=== PATIENT | male | born 1985 | race Caucasian/White ===

== ENCOUNTER 2018-08-19 08:57 | Emergency (ER) | payer OTHER ==
[2018-08-19 09:06] VITALS: RESP 18
--- NOTE | 2018-08-19 09:35 | ED ---
Skin/Abscess/FB HPI - General Chief complaint: Skin/Abscess/Foreign Body Stated complaint: ABSCESS BOTH FOREARMS Time Seen by Provider: 08/19/18 09:25 Source: patient, RN notes reviewed Mode of arrival: ambulatory Limitations: no limitations - History of Present Illness Initial comments: This a 32-year-old male presents emergency Department chief complaint of bilateral arm abscesses. Patient states it started over the last 1 week. Patient seen at urgent care yesterday was given IM injection of Rocephin and was advised to emergency department. Patient states he didn't but comes today. He states the left arm is much worse than the right. Patient states that he does have a history apparently abuse but has not used recently. Patient states that this initially started from getting fiberglass in his arm and states that he try to cut a piece of plastic. Patient states that he has no paresthesias no weakness to his hands. - Related Data Home Medications Medication Instructions Recorded Confirmed lamoTRIgine [LaMICtal] 200 mg PO DAILY 10/11/14 08/19/18 Citalopram Hydrobromide [CeleXA] 40 mg PO DAILY 08/19/18 08/19/18 Previous Rx's Medication Instructions Recorded Sulfamethox-Tmp 800-160Mg [Bactrim 1 each PO Q12HR #20 tab 08/19/18 Ds] Allergies Allergy/AdvReac Type Severity Reaction Status Date / Time No Known Allergies Allergy Verified 08/19/18 10:13 Review of Systems ROS Statement: Those systems with pertinent positive or pertinent negative responses have been documented in the HPI. ROS Other: All systems not noted in ROS Statement are negative. Past Medical History Additional Past Medical History / Comment(s): IV DRUG ABUSE History of Any Multi-Drug Resistant Organisms: None Reported Past Surgical History: No Surgical Hx Reported Past Psychological History: Bipolar, Depression Smoking Status: Current every day smoker Past Alcohol Use History: None Reported Past Drug Use History: None Reported, Cocaine, Heroin General Exam Limitations: no limitations General appearance: alert, in no apparent distress Head exam: Present: atraumatic, normocephalic, normal inspection Neck exam: Present: normal inspection. Absent: tenderness, meningismus, lymphadenopathy Respiratory exam: Present: normal lung sounds bilaterally. Absent: respiratory distress, wheezes, rales, rhonchi, stridor Cardiovascular Exam: Present: regular rate, normal rhythm, normal heart sounds. Absent: systolic murmur, diastolic murmur, rubs, gallop, clicks Extremities exam: Present: other (Left forearm left antecubital region there is extensive abscesses skin is firm with palpation there is no fluctuant areas is moderate erythema and tenderness with palpation neurovascular intact upper extremities with equal radial pulses equal sensation, there is a 1 cm abscess to the right medial aspect of the antecubital fossa.) Skin exam: Present: warm, dry Course Vital Signs 08/19/18 09:02 Temperature 98.2 F Pulse Rate 61 Respiratory 18 Rate Blood Pressure 108/69 O2 Sat by Pulse 100 Oximetry Medical Decision Making - Medical Decision Making 32-year-old male presented for left arm swelling, rash and right arm abscess. Patient Has Superficial from Phlebitis of His Left Arm. He Does Have a Small Abscess to the Right Arm. Patient Had Lab Work Which Is Controlled Unremarkable. Patient Has NO KNOWN DRUG ALLERGIES and will be discharged on Bactrim. We discussed warm compresses to her arm, anti-inflammatories and needs to have follow-up in one to days for recheck. We discussed return parameters. - Lab Data Result diagrams: 08/19/18 12:02 08/19/18 12:02 Lab Results 08/19/18 08/19/18 Range/Units 12:02 12:02 WBC 8.9 (3.8-10.6) k/uL RBC 4.98 (4.30-5.90) m/uL Hgb 14.0 (13.0-17.5) gm/dL Hct 41.2 (39.0-53.0) % MCV 82.8 (80.0-100.0) fL MCH 28.2 (25.0-35.0) pg MCHC 34.1 (31.0-37.0) g/dL RDW 13.0 (11.5-15.5) % Plt Count 216 (150-450) k/uL Neutrophils % 77 % Lymphocytes % 15 % Monocytes % 5 % Eosinophils % 1 % Basophils % 0 % Neutrophils # 6.9 (1.3-7.7) k/uL Lymphocytes # 1.4 (1.0-4.8) k/uL Monocytes # 0.5 (0-1.0) k/uL Eosinophils # 0.1 (0-0.7) k/uL Basophils # 0.0 (0-0.2) k/uL Sodium 141 (137-145) mmol/L Potassium 3.6 (3.5-5.1) mmol/L Chloride 99 (98-107) mmol/L Carbon Dioxide 32 H (22-30) mmol/L Anion Gap 10 mmol/L BUN 10 (9-20) mg/dL Creatinine 0.62 L (0.66-1.25) mg/dL Est GFR (CKD-EPI)AfAm >90 (>60 ml/min/1.73 sqM) Est GFR (CKD-EPI)NonAf >90 (>60 ml/min/1.73 sqM) Glucose 91 (74-99) mg/dL Calcium 9.0 (8.4-10.2) mg/dL Total Bilirubin 0.5 (0.2-1.3) mg/dL AST 44 (17-59) U/L ALT 56 (21-72) U/L Alkaline Phosphatase 111 (38-126) U/L Total Protein 6.6 (6.3-8.2) g/dL Albumin 3.4 L (3.5-5.0) g/dL Disposition Clinical Impression: Abscess of right arm, Superficial thrombophlebitis of left upper extremity Disposition: HOME SELF-CARE Condition: Stable Instructions: Superficial Thrombophlebitis (ED) Additional Instructions: Please return to the Emergency Department if symptoms worsen or any other concerns. Prescriptions: Sulfamethox-Tmp 800-160Mg [Bactrim Ds] 1 each PO Q12HR #20 tab Is patient prescribed a controlled substance at d/c from ED?: No Referrals: Jessica Mcadams MD [Primary Care Provider] - 1-2 days Time of Disposition: 14:18
--- NOTE | 2018-08-19 10:11 | XR ---
EXAMINATION TYPE: XR forearm LT DATE OF EXAM: 08/19/2018 CLINICAL HISTORY: Pain per order. Abscess and swelling per technologist near elbow. TECHNIQUE: Two views of the left forearm are obtained. COMPARISON: None. FINDINGS: There is no acute fracture or dislocation seen in the left radius or ulna. The left elbow and wrist joints appear within normal limits. There is mild to moderate diffuse subcutaneous edema c entered near distal humerus or elbow ulnar aspect. No suspicious metallic or radiodense foreign body is present. IMPRESSION: There is no acute fracture or dislocation seen in the left radius or ulna.
[2018-08-19 12:40] LABS: Basophils % (A) 0 %; Eosinophils # (A) 0.1 k/uL (0-0.7); Eosinophils % (A) 1 %; HCT 41.2 % (39.0-53.0); Lymphocytes # (A) 1.4 k/uL (1.0-4.8); Lymphocytes % (A) 15 %; MCH 28.2 pg (25.0-35.0); MCHC 34.1 g/dL (31.0-37.0); MCV 82.8 fL (80.0-100.0); Mean Platelet Volume 8.4; Monocytes # (A) 0.5 k/uL (0-1.0); Monocytes % (A) 5 %; Neutrophils # (A) 6.9 k/uL (1.3-7.7); Neutrophils % (A) 77 %; Platelet Count 216 k/uL (150-450); RBC 4.98 m/uL (4.30-5.90); WBC 8.9 k/uL (3.8-10.6)
[2018-08-19 13:44] LABS: ALT 56 U/L (21-72); AST 44 U/L (17-59); Albumin 3.4 g/dL (3.5-5.0); Alkaline Phosphatase 111 U/L (38-126); Anion Gap 10 mmol/L; Blood Urea Nitrogen 10 mg/dL (9-20); Carbon Dioxide 32 mmol/L (22-30); Chloride 99 mmol/L (98-107); Glucose 91 mg/dL (74-99); Potassium 3.6 mmol/L (3.5-5.1); Sodium 141 mmol/L (137-145); Total Bilirubin 0.5 mg/dL (0.2-1.3); Total Protein 6.6 g/dL (6.3-8.2)
--- NOTE | 2018-08-19 14:01 | US ---
EXAMINATION TYPE: US venous doppler duplex UE LT DATE OF EXAM: 08/19/2018 COMPARISON: NONE CLINICAL HISTORY: Pain. Left arm redness, pain, and swelling SIDE PERFORMED: Left Left Arm: Negative for DVT Positive for SVT in the left basilic vein Grayscale, color doppler, spectral doppler imaging performed of the deep veins of the left upper extr emity. There is normal flow, compressibility and vascular waveforms in the deep vessels. IMPRESSION: Acute superficial venous thrombosis in the left basilic vein.
[2018-08-19 14:34] VITALS: BP 102/59; PULSE 70; TEMP 98.8
== END 2018-08-19 14:35 | disposition home or self-care (01) ==
LOC: EC 08:57
DX: I82.612 Acute embolism and thrombosis of superficial veins of left upper extremity (principal); L02.413 Cutaneous abscess of right upper limb; L02.414 Cutaneous abscess of left upper limb; F31.9 Bipolar disorder, unspecified; F17.200 Nicotine dependence, unspecified, uncomplicated; Z79.899 Other long term (current) drug therapy
CPT/HCPCS: 36415; 80053; 85025; 87040; 99284

== ENCOUNTER 2019-02-11 14:53 | Emergency (ER) | payer OTHER ==
[2019-02-11 15:03] VITALS: BP 122/78; PULSE 84; RESP 20; TEMP 97.9
[2019-02-11] MEDS ORDERED: ACET/COD 300 MG/30 MG STARTER PACK 6 TAB BTL PO STA (16:14)
--- NOTE | 2019-02-11 16:16 | ED ---
Abdominal Pain HPI - General Chief Complaint: Abdominal Pain Stated Complaint: Hernia Time Seen by Provider: 02/11/19 15:40 Source: patient, RN notes reviewed Mode of arrival: ambulatory Limitations: no limitations - History of Present Illness Initial Comments: 33-year-old male presents emergency Department for hernia. Patient had a known hernia in the right inguinal region. Patient states that he has been doing heavy lifting as he had to changes.. Patient states he has been miles. He's had increase in symptoms. Patient has fevers chills no difficulty urinating no change in bowel habits. - Related Data Home Medications Medication Instructions Recorded Confirmed lamoTRIgine [LaMICtal] 200 mg PO DAILY 10/11/14 08/19/18 Citalopram Hydrobromide [CeleXA] 40 mg PO DAILY 08/19/18 08/19/18 Previous Rx's Medication Instructions Recorded Sulfamethox-Tmp 800-160Mg [Bactrim 1 each PO Q12HR #20 tab 08/19/18 Ds] Allergies Allergy/AdvReac Type Severity Reaction Status Date / Time No Known Allergies Allergy Verified 02/11/19 15:03 Review of Systems ROS Statement: Those systems with pertinent positive or pertinent negative responses have been documented in the HPI. ROS Other: All systems not noted in ROS Statement are negative. Past Medical History Past Medical History: No Reported History Additional Past Medical History / Comment(s): IV DRUG ABUSE History of Any Multi-Drug Resistant Organisms: None Reported Past Surgical History: No Surgical Hx Reported Past Psychological History: Bipolar, Depression Smoking Status: Current every day smoker Past Alcohol Use History: None Reported Past Drug Use History: None Reported, Cocaine, Heroin General Exam Limitations: no limitations General appearance: alert, in no apparent distress Head exam: Present: atraumatic, normocephalic, normal inspection Eye exam: Present: normal appearance, PERRL, EOMI. Absent: scleral icterus, conjunctival injection, periorbital swelling Respiratory exam: Present: normal lung sounds bilaterally. Absent: respiratory distress, wheezes, rales, rhonchi, stridor Cardiovascular Exam: Present: regular rate, normal rhythm, normal heart sounds. Absent: systolic murmur, diastolic murmur, rubs, gallop, clicks GI/Abdominal exam: Present: soft, normal bowel sounds, hernia (Right inguinal hernia reducible). Absent: distended, tenderness, guarding, rebound, rigid Course Vital Signs 02/11/19 15:01 Temperature 97.9 F Pulse Rate 84 Respiratory 20 Rate Blood Pressure 122/78 O2 Sat by Pulse 99 Oximetry Medical Decision Making - Medical Decision Making 33-year-old male presented for right inguinal hernia. This is reducible. Patient will follow-up outpatient surgery. Patient be discharged with pain medication. Return parameters were discussed. Disposition Clinical Impression: Inguinal hernia Disposition: HOME SELF-CARE Condition: Stable Instructions (If sedation given, give patient instructions): Inguinal Hernia (ED) Additional Instructions: Please return to the Emergency Department if symptoms worsen or any other concerns. Is patient prescribed a controlled substance at d/c from ED?: No Referrals: Jessica Mcadams MD [Primary Care Provider] - 1-2 days Randy Ghotra MD [STAFF PHYSICIAN] - 1-2 days Time of Disposition: 16:15
== END 2019-02-11 16:25 | disposition home or self-care (01) ==
LOC: EC 14:53
DX: K40.90 Unilateral inguinal hernia, without obstruction or gangrene, not specified as recurrent (principal); F31.9 Bipolar disorder, unspecified; F17.200 Nicotine dependence, unspecified, uncomplicated; Z79.899 Other long term (current) drug therapy
CPT/HCPCS: 99283

== ENCOUNTER 2019-03-07 03:47 | Inpatient (IN) | payer OTHER ==
[2019-03-07] MEDS ORDERED: NALOXONE 0.4 MG/ML 1 ML VIAL IV STA (04:05)
[2019-03-07] MEDS ORDERED: SODIUM CHLORIDE 0.9% 1,000 ML IV ONE ×3 (04:09→22:06)
[2019-03-07 04:18] LABS: Basophils % (A) 0 %; Eosinophils % (A) 0 %; HCT 45.8 % (39.0-53.0); HGB 15.1 gm/dL (13.0-17.5); Lymphocytes # (A) 0.5 k/uL (1.0-4.8); Lymphocytes % (A) 4 %; MCH 28.8 pg (25.0-35.0); MCHC 32.8 g/dL (31.0-37.0); MCV 87.7 fL (80.0-100.0); Mean Platelet Volume 7.5; Monocytes # (A) 0.8 k/uL (0-1.0); Monocytes % (A) 5 %; Neutrophils # (A) 13.2 k/uL (1.3-7.7); Neutrophils % (A) 89 %; Platelet Count 137 k/uL (150-450); RBC 5.23 m/uL (4.30-5.90); RDW 14.6 % (11.5-15.5); WBC 14.8 k/uL (3.8-10.6)
--- NOTE | 2019-03-07 04:27 | XR ---
EXAM: XR Chest, 1 View CLINICAL HISTORY: fever TECHNIQUE: Frontal view of the chest. COMPARISON: No relevant prior studies available. FINDINGS: Lungs: Questionable subsegmental opacities in the inferior lung zones. No lobar consolidation. Pleural space: No large pleural effusion. No pneumothorax. Heart: Unremarkable. No cardiomegaly. Mediastinum: The mediastinal contours are within normal limits. The trachea is midline. Questionable peribronchial thickening is noted in the left superior hilum. Bones/joints: Unremarkable. IMPRESSION: Questionable subsegmental opacities in the inferior lung zones. Primary consideration is subsegmental atelectasis. Infection is considered less likely but difficult to entirely exclude on this portable exam. No large pleural effusion or pneumothorax.
[2019-03-07 04:28] LABS: Calcium 8.3 mg/dL (8.4-10.2)
[2019-03-07] MEDS ORDERED: NALOXONE 0.4 MG/ML 1 ML VIAL IV PRN ×2 (06:30→07:18)
[2019-03-07] MEDS ORDERED: ONDANSETRON 4 MG/2 ML VIAL IVP PRN ×2 (06:30→07:16)
[2019-03-07] MEDS: SODIUM CHLORIDE 0.9% 1,000 ML IV SCH ×3 (06:53→21:44)
--- NOTE | 2019-03-07 07:06 | ED ---
Overdose HPI - General Chief Complaint: Overdose Stated Complaint: Overdose Time Seen by Provider: 03/07/19 03:57 Source: RN/MD Mode of arrival: EMS Limitations: no limitations - History of Present Illness Initial Comments: Patient is 33-year-old man who states that he was recreationally using opioids and believes that he accidentally overdosed on fentanyl. First responders were activated and found the patient unresponsive. They did administer Narcan and the patient became more alert. Here the patient is denying complaint. He is not having chest pain or dyspnea. He denies pain anywhere. The patient states that he was not attempting to harm himself. Complaint: accidental overdose -: minutes(s) Context: Accidental Overdose: wanted to get high Treatments Prior to Arrival: oxygen, narcan, IV fluids - Related Data Home Medications Medication Instructions Recorded Confirmed lamoTRIgine [LaMICtal] 200 mg PO BID 10/11/14 03/07/19 Citalopram Hydrobromide [CeleXA] 40 mg PO DAILY 08/19/18 03/07/19 Previous Rx's Medication Instructions Recorded Amoxic-Pot Clav 875-125Mg 1 tab PO Q12HR #10 tablet 03/08/19 [Augmentin 875-125] Allergies Allergy/AdvReac Type Severity Reaction Status Date / Time No Known Allergies Allergy Verified 03/07/19 08:11 Review of Systems ROS Statement: Those systems with pertinent positive or pertinent negative responses have been documented in the HPI. ROS Other: All systems not noted in ROS Statement are negative. Eyes: Denies: vision change ENT: Denies: throat pain Respiratory: Denies: cough, dyspnea Cardiovascular: Denies: palpitations, edema, syncope Gastrointestinal: Denies: abdominal pain, vomiting, diarrhea Genitourinary: Denies: dysuria Musculoskeletal: Denies: back pain Skin: Denies: rash Neurological: Denies: headache, weakness, numbness Past Medical History Past Medical History: No Reported History Additional Past Medical History / Comment(s): IV DRUG ABUSE History of Any Multi-Drug Resistant Organisms: None Reported Past Surgical History: No Surgical Hx Reported Past Psychological History: Bipolar, Depression Smoking Status: Current every day smoker Past Alcohol Use History: None Reported Past Drug Use History: None Reported, Cocaine, Heroin, Prescription Drug Abuse - Past Family History Father Family Medical History: COPD Additional Family Medical History / Comment(s): Father is a smoker Mother Family Medical History: No Reported History Additional Family Medical History / Comment(s): Mother is healthy General Exam Limitations: no limitations General appearance: alert, in no apparent distress Head exam: Present: atraumatic, normocephalic Eye exam: Present: normal appearance. Absent: scleral icterus, conjunctival injection ENT exam: Present: normal oropharynx Neck exam: Present: normal inspection Respiratory exam: Present: normal lung sounds bilaterally. Absent: respiratory distress, wheezes, rales, rhonchi, stridor Cardiovascular Exam: Present: normal rhythm, tachycardia, normal heart sounds. Absent: systolic murmur, diastolic murmur, rubs, gallop GI/Abdominal exam: Present: soft. Absent: distended, tenderness, guarding, rebound, rigid, mass Extremities exam: Present: normal inspection, normal capillary refill. Absent: pedal edema, calf tenderness Back exam: Present: normal inspection. Absent: CVA tenderness (R), CVA tenderness (L) Neurological exam: Present: alert Skin exam: Present: warm, dry, intact, normal color. Absent: rash Course Vital Signs 03/07/19 03/07/19 03/07/19 03:51 04:07 04:27 Temperature 102.8 F H Pulse Rate 120 H 124 H Respiratory 18 12 18 Rate Blood Pressure 115/72 115/72 O2 Sat by Pulse 90 L 95 Oximetry 03/07/19 03/07/19 03/07/19 05:02 05:42 06:05 Temperature Pulse Rate 117 H 109 H 108 H Respiratory 14 16 14 Rate Blood Pressure 96/60 95/58 99/62 O2 Sat by Pulse 95 95 97 Oximetry 03/07/19 03/07/19 06:24 06:58 Temperature 99 F Pulse Rate 100 Respiratory 16 Rate Blood Pressure 96/59 O2 Sat by Pulse 97 Oximetry Medical Decision Making - Medical Decision Making Patient is a 33-year-old man presenting after accidental overdose with fentanyl . He did continue to remain somewhat somnolent and did not appear to be safe for discharge after observation period in the emergency department. The patient does remain arousable to voice. He is not require tactile stimulus. There was one point in which she did require additional Narcan. - Lab Data Result diagrams: 03/08/19 06:46 03/08/19 06:46 Lab Results 03/07/19 03/07/19 Range/Units 04:00 04:00 WBC 14.8 H (3.8-10.6) k/uL RBC 5.23 (4.30-5.90) m/uL Hgb 15.1 (13.0-17.5) gm/dL Hct 45.8 (39.0-53.0) % MCV 87.7 (80.0-100.0) fL MCH 28.8 (25.0-35.0) pg MCHC 32.8 (31.0-37.0) g/dL RDW 14.6 (11.5-15.5) % Plt Count 137 L (150-450) k/uL Neutrophils % 89 % Lymphocytes % 4 % Monocytes % 5 % Eosinophils % 0 % Basophils % 0 % Neutrophils # 13.2 H (1.3-7.7) k/uL Lymphocytes # 0.5 L (1.0-4.8) k/uL Monocytes # 0.8 (0-1.0) k/uL Eosinophils # 0.0 (0-0.7) k/uL Basophils # 0.0 (0-0.2) k/uL Sodium 135 L (137-145) mmol/L Potassium 4.0 (3.5-5.1) mmol/L Chloride 99 (98-107) mmol/L Carbon Dioxide 20 L (22-30) mmol/L Anion Gap 16 mmol/L BUN 20 (9-20) mg/dL Creatinine 1.75 H (0.66-1.25) mg/dL Est GFR (CKD-EPI)AfAm 58 (>60 ml/min/1.73 sqM) Est GFR (CKD-EPI)NonAf 51 (>60 ml/min/1.73 sqM) Glucose 132 H (74-99) mg/dL Calcium 8.3 L (8.4-10.2) mg/dL - EKG Data -: EKG Interpreted by Me EKG shows normal: sinus rhythm, axis (Normal), intervals (Normal), QRS complexes (Normal), ST-T waves Rate: tachycardia Critical Care Time Critical Care Time: Yes (30 minutes) Disposition Clinical Impression: Opiate overdose Disposition: ADMITTED IP TO THIS HOSP Condition: Fair Is patient prescribed a controlled substance at d/c from ED?: No
[2019-03-07] MEDS ORDERED: NON-FORMULARY DRUG (Citalopram Hydrobromide [Celexa] 40 MG) PO SCH (09:00)
[2019-03-07] MEDS ORDERED: SULFAMETHOX-TMP 800-160MG 1 EACH TAB PO SCH (09:00)
[2019-03-07] MEDS ORDERED: NON-FORMULARY DRUG (Lamotrigine [Lamictal] 200 MG) PO SCH (09:00)
[2019-03-07] MEDS: CITALOPRAM HYDROBROMIDE 20 MG TAB PO SCH (09:57)
[2019-03-07] MEDS: lamoTRIgine 100 MG TAB PO SCH (09:57)
--- NOTE | 2019-03-07 11:43 | P.HPIM ---
History of Present Illness This is a pleasant 33 years old male, with past medical history of heroin overdose in 2013 who presented and had cardiac arrest, dorsi the point case, IV drug abuse, multiple drug abuse, bipolar and depression, who presents because of fentanyl overdose, patient says that he is been clean for a while and he said to dizziness or 2 times at his parent's house when he passed out and they called embolus for him he could not remember more details however he denies other symptoms. He had denies chest pain, no dyspnea, no change in urine or bowel habits. No abdominal pain. On admission he has a fever of 102.8, he was hypertensive and tachycardic with acute kidney injury with creatinine 1.75 on admission. Patient states that he takes a fentanyl for recreational reasons, he does not complain from pain. He denies other drug addiction. He smokes cigarettes about half pack per day with no alcohol. He has history of depression however he denies being depressed or suicidal at this time. Labs also showing leukocytosis with 14.8 K. Chest x-ray: Showing atelectasis with less likely infection, EKG: Sinus tachycardia at 122 with incomplete right bundle branch block. Review of Systems CONSTITUTIONAL: No fever, no malaise, no fatigue. HEENT: No recent visual problems or hearing problems. Denied any sore throat. CARDIOVASCULAR: No orthopnea, PND, no palpitations, no syncope. PULMONARY: No shortness of breath, no cough, no hemoptysis. GASTROINTESTINAL: No diarrhea, no nausea, no vomiting, no abdominal pain. Normoactive bowel sounds. NEUROLOGICAL: No headaches, no weakness, no numbness. HEMATOLOGICAL: Denies any bleeding or petechiae. GENITOURINARY: Denies any burning micturition, frequency, or urgency. MUSCULOSKELETAL/RHEUMATOLOGICAL: Denies any joint pain, swelling, or any muscle pain. ENDOCRINE: Denies any polyuria or polydipsia. Past Medical History Past Medical History: Pneumonia Additional Past Medical History / Comment(s): 2014 Heroin overdose/vented and had cardiac arrest-torsades de pointes, possible aspiration pneumonia, multi drug abuse-IVDA History of Any Multi-Drug Resistant Organisms: None Reported Past Surgical History: No Surgical Hx Reported Smoking Status: Current every day smoker - Past Family History Father Family Medical History: COPD Additional Family Medical History / Comment(s): Father is a smoker Mother Family Medical History: No Reported History Additional Family Medical History / Comment(s): Mother is healthy Medications and Allergies Home Medications Medication Instructions Recorded Confirmed Type lamoTRIgine [LaMICtal] 200 mg PO BID 10/11/14 03/07/19 History Citalopram Hydrobromide [CeleXA] 40 mg PO DAILY 08/19/18 03/07/19 History Allergies Allergy/AdvReac Type Severity Reaction Status Date / Time No Known Allergies Allergy Verified 03/07/19 08:11 Physical Exam Vitals: Vital Signs Temp Pulse Pulse Resp BP BP Pulse Ox 03/07/19 08:15 97.9 F 95 16 98/56 98 03/07/19 06:58 100 16 96/59 97 03/07/19 06:24 99 F 03/07/19 06:05 108 H 14 99/62 97 03/07/19 05:42 109 H 16 95/58 95 03/07/19 05:02 117 H 14 96/60 95 03/07/19 04:27 124 H 18 115/72 95 03/07/19 04:07 12 03/07/19 03:51 102.8 F H 120 H 18 115/72 90 L Intake and Output 03/06/19 03/07/19 03/07/19 22:59 06:59 14:59 Intake Total 100 Balance 100 Intake: Oral 100 Other: Weight 81.647 kg -GENERAL: The patient is alert and oriented x3, looks lethargic not in any acute distress. Well developed, well nourished. HEENT: Pupils are round and equally reacting to light. EOMI. No scleral icterus. No conjunctival pallor. Normocephalic, atraumatic. No pharyngeal erythema. No thyromegaly. CARDIOVASCULAR: S1 and S2 present. No murmurs, rubs, or gallops. PULMONARY: Chest is clear to auscultation, no wheezing or crackles. ABDOMEN: Soft, nontender, nondistended, normoactive bowel sounds. No palpable organomegaly. MUSCULOSKELETAL: No joint swelling or deformity. -EXTREMITIES: No cyanosis, clubbing, or pedal edema. He has injection tracking frausto on the extensor surface of his forearm NEUROLOGICAL: Gross neurological examination did not reveal any focal deficits. SKIN: No rashes. Results CBC & Chem 7: 03/07/19 04:00 04/29/19 04:00 Labs: Abnormal Lab Results - Last 24 Hours (Table) 03/07/19 03/07/19 Range/Units 04:00 04:00 WBC 14.8 H (3.8-10.6) k/uL Plt Count 137 L (150-450) k/uL Neutrophils # 13.2 H (1.3-7.7) k/uL Lymphocytes # 0.5 L (1.0-4.8) k/uL Sodium 135 L (137-145) mmol/L Carbon Dioxide 20 L (22-30) mmol/L Creatinine 1.75 H (0.66-1.25) mg/dL Glucose 132 H (74-99) mg/dL Calcium 8.3 L (8.4-10.2) mg/dL Thrombosis Risk Factor Assmnt - Choose All That Apply Any of the Below Risk Factors Present?: Yes Each Factor Represents 1 point: Obesity (BMI >25) Other Risk Factors: No Other congenital or acquired thrombophilia - If yes, enter type in comment: No Thrombosis Risk Factor Assessment Total Risk Factor Score: 1 Thrombosis Risk Factor Assessment Level: Low Risk Assessment and Plan Assessment: Fentanyl overdose Hypotension with tachycardia Acute kidney injury Systemic inflammatory response with fever and leukocytosis and tachycardia present on admission Sepsis with unknown exact origin, possible pneumonia. Rule out cardiac sources. Plan: This is a pleasant 33 years old male, patient has comes with fentanyl overdose and sepsis with acute kidney injury. We'll check influenza, send blood culture. Due echocardiogram and call infectious disease consult. Psychiatric evalu ation for history of depression and the top of his neck overdose. Continue with aggressive hydration. Hold pain medication. Monitor vitals and labs.Labs and medication were reviewed.. Continue same treatment. Continue with symptomatic treatment. Resume home medication. Monitor lytes and vitals. DVT and GI prophylaxis. Further recommendations of the clinical course of the patient DVT prophylaxis: Subcutaneous heparin GI Prophylaxis: Pepcid Prognosis is guarded
[2019-03-07 18:08] LABS: Amphetamine Screen,Urine Not Detected (NotDetected); Barbiturate Screen,Urine Not Detected (NotDetected); Benzodiazepines Screen,Urine Not Detected (NotDetected); Cocaine Screen,Urine Not Detected (NotDetected); Methadone Screen, Urine Not Detected (NotDetected); Opiate Screen,Urine Not Detected (NotDetected); Oxycodone Screen, Urine Not Detected (NotDetected); Phencyclidine Screen,Urine Not Detected (NotDetected); Tricyclic Antidepressant,Urine Not Detected (NotDetected); Urn Cannabinoid Scrn Not Detected (NotDetected)
--- NOTE | 2019-03-07 19:58 | ECHOF ---
Referral Reason:possible vegetation MEASUREMENTS -------- HEIGHT: 180.3 cm WEIGHT: 81.6 kg BP: 98/56 IVSd: 1.0 cm (0.6 - 1.1) LVIDd: 4.0 cm (3.9 - 5.3) LVPWd: 1.0 cm (0.6 - 1.1) IVSs: 1.4 cm LVIDs: 2.8 cm LVPWs: 1.5 cm RVIDd: 2.7 cm (< 3.3) Ao Diam: 3.2 cm (2.0 - 3.7) LA Diam: 2.7 cm (2.7 - 3.8) AV Cusp: 2.2 cm (1.5 - 2.6) EPSS: 1.0 cm MV E Jason: 1.24 m/s MV DecT: 160 ms MV A Jason: 0.70 m/s MV E/A Ratio: 1.78 RAP: 5.00 mmHg RVSP: 17.74 mmHg MV EF SLOPE: 108.96 mm/s (70 - 150) MV EXCURSION: 9.59 mm (> 18.000) FINDINGS -------- Sinus rhythm. This was a technically good study. The left ventricular size is normal. Left ventricular wall thickness is normal. Overall left vent ricular systolic function is low-normal with, an EF between 50 - 55 %. The right ventricle is normal in size. Normal LA size by volume 22+/-6 ml/m2. The right atrial size is normal. Interatrial and interventricular septum intact. The aortic valve is trileaflet and appears structurally normal. There is trace mitral regurgitation. Trace tricuspid regurgitation present. The right ventricular systolic pressure, as measured by Dopp ler, is 17.74mmHg. There is no pulmonic regurgitation present. The aortic root size is normal. Normal inferior vena cava with normal inspiratory collapse consistent with estimated right atrial pre ssure of 5 mmHg. There is no pericardial effusion. CONCLUSIONS -------- 1. Sinus rhythm. 2. This was a technically good study. 3. The left ventricular size is normal. 4. Left ventricular wall thickness is normal. 5. Overall left ventricular systolic function is low-normal with, an EF between 50 - 55 %. 6. The right ventricle is normal in size. 7. Normal LA size by volume 22+/-6 ml/m2. 8. The right atrial size is normal. 9. Interatrial and interventricular septum intact. 10. The aortic valve is trileaflet and appears structurally normal. 11. There is trace mitral regurgitation. 12. Trace tricuspid regurgitation present. 13. The right ventricular systolic pressure, as measured by Doppler, is 17.74mmHg. 14. There is no pulmonic regurgitation present. 15. The aortic root size is normal. 16. Normal inferior vena cava with normal inspiratory collapse consistent with estimated right atrial pressure of 5 mmHg. 17. There is no pericardial effusion. FAMILY SERVICE AIDE: Marianna Ghosh RDCS
[2019-03-07 23:17] LABS: Basophils % (A) 0 %; Eosinophils # (A) 0.1 k/uL (0-0.7); Eosinophils % (A) 1 %; HGB 13.4 gm/dL (13.0-17.5); Lymphocytes # (A) 1.5 k/uL (1.0-4.8); Lymphocytes % (A) 25 %; MCH 28.5 pg (25.0-35.0); MCHC 32.7 g/dL (31.0-37.0); MCV 87.2 fL (80.0-100.0); Mean Platelet Volume 7.9; Monocytes # (A) 0.5 k/uL (0-1.0); Monocytes % (A) 9 %; Neutrophils # (A) 3.6 k/uL (1.3-7.7); Neutrophils % (A) 62 %; Platelet Count 124 k/uL (150-450); WBC 5.9 k/uL (3.8-10.6)
[2019-03-08] MEDS: SODIUM CHLORIDE 0.9% 1,000 ML IV SCH ×5 (03:35→23:11)
[2019-03-08 07:08] LABS: Basophils % (A) 0 %; Eosinophils # (A) 0.1 k/uL (0-0.7); Eosinophils % (A) 2 %; HCT 40.9 % (39.0-53.0); HGB 13.6 gm/dL (13.0-17.5); Lymphocytes # (A) 1.4 k/uL (1.0-4.8); Lymphocytes % (A) 25 %; MCH 28.7 pg (25.0-35.0); MCHC 33.3 g/dL (31.0-37.0); MCV 86.2 fL (80.0-100.0); Mean Platelet Volume 8.2; Monocytes # (A) 0.4 k/uL (0-1.0); Monocytes % (A) 7 %; Neutrophils # (A) 3.5 k/uL (1.3-7.7); Neutrophils % (A) 62 %; Platelet Count 122 k/uL (150-450); RBC 4.74 m/uL (4.30-5.90); WBC 5.7 k/uL (3.8-10.6)
[2019-03-08 07:18] LABS: Anion Gap 5 mmol/L; Blood Urea Nitrogen 11 mg/dL (9-20); Calcium 7.8 mg/dL (8.4-10.2); Carbon Dioxide 27 mmol/L (22-30); Chloride 109 mmol/L (98-107); Glucose 76 mg/dL (74-99); Potassium 4.3 mmol/L (3.5-5.1); Sodium 141 mmol/L (137-145)
[2019-03-08] MEDS ORDERED: SODIUM CHLORIDE 0.9% 500 ML 500 ML IV ONE (08:30)
[2019-03-08] MEDS: lamoTRIgine 100 MG TAB PO SCH (08:35)
[2019-03-08] MEDS: CITALOPRAM HYDROBROMIDE 20 MG TAB PO SCH (08:35)
--- NOTE | 2019-03-08 11:09 | P.CONS ---
History of Present Illness - Reason for Consult Consult date: 03/07/19 Fever Requesting physician: Ruddy E Sheet - Chief Complaint Fever and unresponsiveness - History of Present Illness Patient is a 33 year old male who apparently was experimenting with recreational drugs and apparently may have overdosed on fentanyl, patient was found to be unresponsive EMS was called and the patient did receive Narcan and did have some improvement in his mentation subsequently the patient has been brought to the [facility] ER patient was noticed to be febrile on presentation with temperature 10 2F patient did have elevated white count of 14.8 and was also tachycardic, the patient influenza test was negative urine toxin was negative as well chest x-ray with some sub segmental atelectasis versus infection, patient subsequently has been admitted to the hospital infectious disease was consulted because of his fever. At the time of evaluation the patient is currently afebrile the patient denies any headache or URI symptoms denies having any chest pain or shortness of breath but is requiring some supplemental oxygen minimal cough no nausea no vomiting and no abdominal pain and no diarrhea Review of Systems CONSTITUTIONAL: Positive for weakness. Fever EYES: No complaint. ENT:No complaint. RESPIRATORY: As per history of present illness. CARDIOVASCULAR: No complaint. GENITOURINARY: No complaint. GASTROINTESTINAL: No complaint. MUSCULOSKELETAL: No complaint. INTEGUMENTARY: No complaint. PSYCHOLOGICAL: No complaint. ENDOCRINE: No complaint. NEUROLOGIC: As per history of present illness. Past Medical History Past Medical History: Pneumonia Additional Past Medical History / Comment(s): 2013 Heroin overdose/vented and had cardiac arrest-torsades de pointes, possible aspiration pneumonia, multi drug abuse-IVDA History of Any Multi-Drug Resistant Organisms: None Reported Past Surgical History: No Surgical Hx Reported Smoking Status: Current every day smoker - Past Family History Father Family Medical History: COPD Additional Family Medical History / Comment(s): Father is a smoker Mother Family Medical History: No Reported History Additional Family Medical History / Comment(s): Mother is healthy Medications and Allergies Home Medications Medication Instructions Recorded Confirmed Type lamoTRIgine [LaMICtal] 200 mg PO BID 10/11/14 03/07/19 History Citalopram Hydrobromide [CeleXA] 40 mg PO DAILY 08/19/18 03/07/19 History Allergies Allergy/AdvReac Type Severity Reaction Status Date / Time No Known Allergies Allergy Verified 03/07/19 08:11 Physical Exam Vitals: Vital Signs Temp Pulse Pulse Resp BP BP Pulse Ox 03/07/19 11:20 96.5 F L 82 16 102/60 92 L 03/07/19 08:15 97.9 F 95 16 98/56 98 03/07/19 06:58 100 16 96/59 97 03/07/19 06:24 99 F 03/07/19 06:05 108 H 14 99/62 97 03/07/19 05:42 109 H 16 95/58 95 03/07/19 05:02 117 H 14 96/60 95 03/07/19 04:27 124 H 18 115/72 95 03/07/19 04:07 12 03/07/19 03:51 102.8 F H 120 H 18 115/72 90 L Intake and Output 03/06/19 03/07/19 03/07/19 22:59 06:59 14:59 Intake Total 100 Balance 100 Intake: Oral 100 Other: # Voids 1 Weight 81.647 kg GENERAL DESCRIPTION: Middle-aged male lying in bed, no distress. No tachypnea or accessory muscle of respiration use. HEENT: Shows Pallor , no scleral icterus. Oral mucous membrane is dry. No pharyngeal erythema or thrush NECK: Trachea central, no thyromegaly. LUNGS: Unlabored breathing. Clear to auscultation anteriorly. No wheeze or crackle. HEART: S1, S2, regular rate and rhythm. No loud murmur ABDOMEN: Soft, no tenderness , guarding or rigidity, no organomegaly EXTREMITIES: No edema of feet. SKIN: No rash, no masses palpable. NEUROLOGICAL: The patient is awake, alert, oriented x3, mood and affect normal. Results CBC & Chem 7: 03/08/19 06:46 03/08/19 06:46 Labs: Abnormal Lab Results - Last 24 Hours (Table) 03/07/19 03/07/19 Range/Units 04:00 04:00 WBC 14.8 H (3.8-10.6) k/uL Plt Count 137 L (150-450) k/uL Neutrophils # 13.2 H (1.3-7.7) k/uL Lymphocytes # 0.5 L (1.0-4.8) k/uL Sodium 135 L (137-145) mmol/L Carbon Dioxide 20 L (22-30) mmol/L Creatinine 1.75 H (0.66-1.25) mg/dL Glucose 132 H (74-99) mg/dL Calcium 8.3 L (8.4-10.2) mg/dL Assessment and Plan Assessment: 1-patient presented to hospital with decreased level of responsiveness after accidental overdose on fentanyl and the patient did have a fever or elevated white count bradycardia meeting criteria for SIRS with a possible source of a spiration pneumonitis not entirely excluded patient currently with no other clinical focus of infection no headache and no neck rigidity no abdominal tenderness or any evidence of cellulitis Plan: 1-blood culture and we'll try to obtain sputum for Gram stain and culture 2-repeat chest x-ray PA and lateral tomorrow 3-we will start the patient on Unasyn 3 g every 6 hours We will follow on clinical condition and cultures to further adjust medication if needed Thank you for this consultation will follow this patient along with you Time with Patient: Greater than 30
--- NOTE | 2019-03-08 11:36 | P.DS ---
Providers Date of admission: 03/07/19 06:32 Attending physician: Hemalatha Martinez Consults: 03/07/19 11:52 Consult Physician Urgent Consulting Provider: Aruna Fajardo Consult Reason/Comments: fever, drug abuse Do you want consulting provider notified?: Yes 03/07/19 12:07 Consult Physician Routine Consulting Provider: Jordan Owens Consult Reason/Comments: depression/overdose Do you want consulting provider notified?: Yes Primary care physician: Jessica Mcadams Hospital Course: Diagnoses: Fentanyl overdose for recreational reasons Hypotension with tachycardia, present on admission. Resolved Acute kidney injury, present on admission. Resolved Systemic inflammatory response with fever and leukocytosis and tachycardia present on admission Sepsis with unknown exact origin, possible pneumonia. Suspicion is low as patient responded to fluids only Hospital course This is a pleasant 33 years old male, with past medical history of heroin overdose in 2013 who presented and had cardiac arrest, dorsi the point case, IV drug abuse, multiple drug abuse, bipolar and depression, who presents because of fentanyl overdose, patient says that he is been clean for a while and he said he injected himself 2 times with fentayl in his forearm at his parent's house when he passed out and they called EMS for him he could not remember more details however he denies other symptoms. He had denies chest pain, no dyspnea, no change in urine or bowel habits. No abdominal pain. On admission he has a fever of 102.8, he was hypertensive and tachycardic with acute kidney injury with creatinine 1.75 on admission. Chest x-ray: Showing atelectasis with less likely infection. Patient was treated with intravenous hydration and his vitals came back to normal. His creatinine also back to normal. White cell count was normal again yesterday and today at 5.7K. He has no fever for 24 hours. Patient on the day of discharge she remains asymptomatic. Patient has been evaluated by infectious disease who cleared him for discharge Psychiatric evaluation: Pending Problems and management plan was discussed with the patient and he verbalized an distended and acceptance Patient was counseled about the risk of using the substances including but not limited to the risk of and he understands Patient was found stable and can be discharged home however he needs follow-up as an outpatient. Patient was instructed to follow up with his PCP in one week and he agrees Discharge exam Gen: patient is a AAOx3, no distress CVS: S1-S2, RRR, no murmur Lungs: B/L CTA, no wheezing Abdomen: soft, no distention, no tenderness, positive bowel sounds Extremity: no leg edema or induration Time spent more than 35 minutes Plan - Discharge Summary Discharge Rx Participant: No New Discharge Prescriptions: No Action lamoTRIgine [LaMICtal] 200 mg PO BID Citalopram Hydrobromide [CeleXA] 40 mg PO DAILY Discharge Medication List lamoTRIgine [LaMICtal] 200 mg PO BID 10/11/14 [History] Citalopram Hydrobromide [CeleXA] 40 mg PO DAILY 08/19/18 [History] Follow up Appointment(s)/Referral(s): Jessica Mcadams MD [Primary Care Provider] - 1-2 days
[2019-03-08] MEDS: AMPICILLIN-SULBACTAM 3 GM in SODIUM CHLORIDE 0.9% 100 ML IVPB SCH ×3 (12:19→23:09)
--- NOTE | 2019-03-08 13:06 | P.CN ---
Psychiatric Consult - . Consult date: 03/08/19 Consult:: 03/07/19 13:03 Not all overdose and history of depression Assessment and Plan (1) Opiate overdose Narrative/Plan: This is a pleasant 33 years old male, with past medical history of heroin overdose in 2013 who presented with cardiac arrest,IV drug abuse, multiple drug abuse, bipolar- depression, who presents because of fentanyl overdose, patient says that he is been clean for a while. He said he became dizziness or 2 times at his parent's house when he passed out and they called ambulance for him he could not remember more details however he denies other symptoms. He had denies chest pain, no dyspnea, no change in urine or bowel habits. No abdominal pain. On admission he has a fever of 102.8, he was hypertensive and tachycardic with acute kidney injury with creatinine 1.75 on admission. Patient states that he takes a fentanyl for recreational reasons, he does not complain from pain. His other drug addictionnicotine. He has history of depression however he denies being depressed or suicidal at this time. Labs also showing leukocytosis with 14.8 K. Chest x-ray: Showing atelectasis with less likely infection, EKG: Sinus tachycardia at 122 with incomplete right bundle branch block. Past Medical History Past Medical History: Pneumonia Additional Past Medical History / Comment(s): 2013 Heroin overdose/vented and had cardiac arrest-torsades de pointes, possible aspiration pneumonia, multi drug abuse-IVDA History of Any Multi-Drug Resistant Organisms: None Reported Past Surgical History: No Surgical Hx Reported Smoking Status: Current every day smoker - Past Family History Father Family Medical History: COPD Additional Family Medical History / Comment(s): Father is a smoker Mother Family Medical History: No Reported History Additional Family Medical History / Comment(s): Mother is healthy Medications and Allergies Home Medications Medication Instructions Recorded Confirmed Type lamoTRIgine [LaMICtal] 200 mg PO BID 10/11/14 03/07/19 History Citalopram Hydrobromide [CeleXA] 40 mg PO DAILY 08/19/18 03/07/19 History Allergies Allergy/AdvReac Type Severity Reaction Status Date / Time No Known Allergies Allergy Verified 03/07/19 08:11 Mental Status Examination - The patient presents alert, pleasant, and cooperative. There calmly seated without any agitated behavior. [He] reports that [his] mood is good. Affect is congruent and euthymic. [He] deny having any suicidal or homicidal ideation intent or plan. [He] denies any auditory or visual hallucinations. There is no evidence of any delusional thought content. [His] thought process is linear and goal-directed. [His] speech is fluent and nonpressured. [His] memory and concentration is grossly intact for the purposes of this session. Psychiatric impression: History of bipolar disorder: Opiate addiction in early remission Psychiatric recommendation: When medically stable and able discharge is not require to [address] [place] [address] and should follow up with his outpatient psychiatrist Thank you for the consult Jordan Owens D.O. PhD Current Visit: Yes Status: Acute Priority: High Code(s): T40.601A - POISONING BY UNSP NARCOTICS, ACCIDENTAL, INIT SNOMED Code(s): 923020273 (2) Depression Current Visit: Yes Status: Acute Priority: Medium Code(s): F32.9 - MAJOR DEPRESSIVE DISORDER, SINGLE EPISODE, UNSPECIFIED SNOMED Code(s): 38578627
--- NOTE | 2019-03-08 14:07 | PN ---
PROGRESS NOTE DATE OF SERVICE: 03/08/2019 REASON FOR FOLLOWUP: A fever, question of aspiration pneumonitis. INTERVAL HISTORY: The patient overall fever pattern has improved. The patient has been breathing comfortably. Denies having any chest pain. Occasional cough, not bringing up any sputum. No nausea, vomiting. No abdominal pain, no diarrhea. PHYSICAL EXAMINATION: Blood pressure 115/77, his pulse of 71, temperature is 97, he is 96% on room air. GENERAL DESCRIPTION: A middle-aged male, lying in bed in no distress. RESPIRATORY SYSTEM: Unlabored breathing with decreased breath sounds at the bases, no wheeze. HEART: S1, S2. Regular rate and rhythm. ABDOMEN: Soft, no tenderness. LABS: Hemoglobin 13.2, hematocrit 5.7, BUN of 11, creatinine 0.79. DIAGNOSTIC IMPRESSION AND PLAN: Patient with fever with concern for possible aspiration pneumonitis, admitted to the hospital with drug overdose. Repeat x-ray has been ordered to make sure no worsening pneumonia, did show overall improvement. Recommend to finish therapy with a short course of oral Augmentin and a close outpatient followup. MMODL / IJN: [id number] /
--- NOTE | 2019-03-08 16:00 | XR ---
EXAMINATION TYPE: XR chest 2V DATE OF EXAM: 03/08/2019 COMPARISON: 03/07/2019 HISTORY: Fever and pneumonia TECHNIQUE: Frontal and lateral views of the chest are obtained. FINDINGS: There is improved aeration of the lung bases. Faint horizontally oriented linear opacities remain peripherally within the right lower lung. Cardia mediastinal silhouette is within normal limi ts. Osseous structures are grossly intact. No new focal consolidation, pleural effusion or pneumothor ax. IMPRESSION: Improved aeration of the lung bases with minimal residual right basilar atelectasis.
[2019-03-09] MEDS: SODIUM CHLORIDE 0.9% 1,000 ML IV SCH ×3 (03:43→23:21)
[2019-03-09] MEDS: AMPICILLIN-SULBACTAM 3 GM in SODIUM CHLORIDE 0.9% 100 ML IVPB SCH ×4 (06:20→23:23)
--- NOTE | 2019-03-09 08:44 | P.CRDCN ---
History of Present Illness Consult date: 03/09/19 Requesting physician: Hemalatha Martinez Consult reason: chest pain Chief complaint: Fentanyl overdose, chest pain History of present illness: This is a pleasant 33-year-old gentleman with no prior documented history of hypertension, no diabetes, no hyperlipidemia, he does smoke cigarettes, he also has a history of past heroin overdose in 2013 which time he presented to the hospital with a cardiac arrest, history of bipolar and depression. Presented to the hospital on this admission because he was found passed out, he had overdosed on fentanyl. On admission here he had a temperature of 102.8, he was hypotensive and tachycardic with acute kidney injury and a creatinine of 1.7. Patient had been clean from drugs for quite some time, and took fentanyl this for recreational reasons. 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 States that he has been getting intermittent chest tightness off and on prior to this event and again just after this event. He gets it associated shortness of breath with it. Chest x-ray was performed on admission here which revealed questionable subsegmental [place] in the inferior lung zones. EKG on admission showed a sinus tachycardia with incomplete right bundle branch block pattern. An echocardiogram with Doppler study was performed which revealed a normal left ventricular systolic function. Blood pressure 114/70 on admission with a heart rate of 120, 90% on room air. Temperature of 102.8. Blood pressure this morning 124/60 with a heart rate in the 70s, 100% on room air is afebrile. White blood cell count is normal, hemoglobin 13.6, platelet count 122. Sodium 141, potassium 4.3, BUN 11 and creatinine 0.7. Troponins were negative 3. A repeat chest x-ray was performed which revealed improved aeration of the lung bases. Past Medical History Past Medical History: Pneumonia Additional Past Medical History / Comment(s): 2013 Heroin overdose/vented and had cardiac arrest-torsades de pointes, possible aspiration pneumonia, multi drug abuse-IVDA History of Any Multi-Drug Resistant Organisms: None Reported Past Surgical History: No Surgical Hx Reported Smoking Status: Current every day smoker - Past Family History Father Family Medical History: COPD Additional Family Medical History / Comment(s): Father is a smoker Mother Family Medical History: No Reported History Additional Family Medical History / Comment(s): Mother is healthy Medications and Allergies Home Medications Medication Instructions Recorded Confirmed Type lamoTRIgine [LaMICtal] 200 mg PO BID 10/11/14 03/07/19 History Citalopram Hydrobromide [CeleXA] 40 mg PO DAILY 08/19/18 03/07/19 History Amoxic-Pot Clav 875-125Mg 1 tab PO Q12HR #10 tablet 03/08/19 Rx [Augmentin 875-125] Allergies Allergy/AdvReac Type Severity Reaction Status Date / Time No Known Allergies Allergy Verified 03/07/19 08:11 Physical Exam Vitals: Vital Signs Temp Pulse Resp BP Pulse Ox 03/09/19 04:00 69 16 124/64 100 03/08/19 23:38 78 16 116/76 98 03/08/19 20:00 98.2 F 88 16 118/70 96 03/08/19 16:00 98.3 F 72 18 118/67 97 03/08/19 12:00 97.0 F L 82 18 112/71 96 Intake and Output 03/08/19 03/09/19 03/09/19 22:59 06:59 14:59 Intake Total 800 Balance 800 Intake: Intake, IV Titration 800 Amount Sodium Chloride 0.9% 1, 800 000 ml @ 200 mls/hr IV . Q5H [facility] Rx#:[id number] Other: # Voids 2 2 Weight 81.6 kg PHYSICAL EXAMINATION: GENERAL: 33-year-old gentleman in no acute distress at the time of my examination HEENT: Head is atraumatic, normocephalic. Pupils equal, round. Sclera anicteric. Conjunctiva are clear. Mucous membranes of the mouth are moist. Neck is supple. There is no elevated jugular venous pressure. No carotid bruit is heard. HEART EXAMINATION: Heart S1, S2 normal. No murmur or gallop heard. CHEST EXAMINATION: On's reveal some fine wheezing throughout ABDOMEN: Soft, nontender. Bowel sounds are heard. No organomegaly noted. EXTREMITIES: 2+ peripheral pulses with no evidence of peripheral edema and no calf tenderness noted. NEUROLOGIC patient is awake, alert and oriented 3 . . Results 03/08/19 06:46 03/08/19 06:46 Cardiac Enzymes 03/08/19 03/08/19 03/09/19 Range/Units 17:41 23:13 06:07 Troponin I <0.012 <0.012 <0.012 (0.000-0.034) ng/mL Current Medications Generic Name Dose Route Start Last Admin Trade Name Frexiomy PRN Reason Stop Dose Admin Citalopram Hydrobromide 40 mg 03/07/19 09:00 03/08/19 08:35 Celexa PO 40 mg DAILY MATT Administration Sodium Chloride 1,000 mls @ 200 mls/hr 03/07/19 06:30 03/09/19 03:43 Saline 0.9% IV Not Given .Q5H MATT Ampicillin Sodium/Sulbactam 100 mls @ 200 mls/hr 03/08/19 12:00 03/09/19 06:20 Sodium 3 gm/ Sodium Chloride IVPB 200 mls/hr Q6HR MATT Administration Lamotrigine 200 mg 03/07/19 09:00 03/08/19 08:35 Lamictal PO 200 mg DAILY MATT Administration Naloxone HCl 0.2 mg 03/07/19 07:18 Narcan IV Q2M PRN Opioid Reversal Ondansetron HCl 4 mg 03/07/19 07:16 Zofran IVP Q8HR PRN Nausea And Vomiting Intake and Output 03/08/19 03/09/19 03/09/19 22:59 06:59 14:59 Intake Total 800 Balance 800 Intake: Intake, IV Titration 800 Amount Sodium Chloride 0.9% 1, 800 000 ml @ 200 mls/hr IV . Q5H MATT Rx#:[id number] Other: # Voids 2 2 Weight 81.6 kg 03/08/19 06:46 03/08/19 06:46 EKG Interpretations (text) Initial EKG showed a sinus tachycardia with incomplete right bundle branch block pattern Assessment and Plan Plan: Assessment and plan #1 fentanyl overdose #2 fever and suggestion of possible aspiration pneumonitis #3 history of heroin overdose with subsequent cardiac arrest thousand 14 #4 nicotine dependence #5 bipolar depression #6 chest pain, atypical for acute coronary syndrome, troponins negative 3. Plan Echocardiogram with Doppler study has been performed which revealed a normal left ventricular systolic function. We will recommend patient undergo stress testing to rule out any underlying coronary artery disease. He has also been ad vised strongly regarding the importance of nicotine cessation and cessation of use of any type of narcotics. Further recommendations to follow. DNP note has been reviewed, I agree with a documented findings and plan of care. Patient was seen and examined.
[2019-03-09] MEDS: lamoTRIgine 100 MG TAB PO SCH (08:59)
[2019-03-09] MEDS: CITALOPRAM HYDROBROMIDE 20 MG TAB PO SCH (08:59)
[2019-03-09] MEDS ORDERED: DOBUTamine DRIP for NUC MED 500 MG in DEXTROSE/WATER 1 250ML.BAG IV ONE (11:20)
--- NOTE | 2019-03-09 13:03 | PN ---
PROGRESS NOTE DATE OF SERVICE: 03/09/2019 REASON FOR FOLLOWUP: Fever, possible aspiration pneumonitis. INTERVAL HISTORY: The patient is currently afebrile. The patient has been breathing comfortably. Denies having any chest pain or any cough, no abdominal pain. No nausea, vomiting or diarrhea. PHYSICAL EXAMINATION: Blood pressure 128/70 with a pulse of 82, temperature 98.4. He is 98% on room air. General description is a middle-aged male, lying in bed in no distress. RESPIRATORY SYSTEM: Unlabored breathing. Decreased breath sounds in the bases, no wheeze. HEART: S1, S2. Regular rate and rhythm. ABDOMEN: Soft, no tenderness. LABS: No new lab has been obtained today. DIAGNOSTIC IMPRESSION AND PLAN: Patient with fever. This patient admitted to the hospital with drug overdose with concern for possible aspiration pneumonitis. Plan at this time is to continue with Unasyn and slightly elevated oral Augmentin on discharge to finish a course of therapy. Continue supportive care. MMODL / IJN: [id number] /
[2019-03-09 21:55] LABS: Anion Gap 6 mmol/L; Blood Urea Nitrogen 9 mg/dL (9-20); Calcium 8.5 mg/dL (8.4-10.2); Carbon Dioxide 27 mmol/L (22-30); Chloride 109 mmol/L (98-107); Glucose 92 mg/dL (74-99); Potassium 3.9 mmol/L (3.5-5.1); Sodium 142 mmol/L (137-145)
[2019-03-10] MEDS: SODIUM CHLORIDE 0.9% 1,000 ML IV SCH ×3 (06:40→11:20)
[2019-03-10] MEDS: AMPICILLIN-SULBACTAM 3 GM in SODIUM CHLORIDE 0.9% 100 ML IVPB SCH ×3 (06:41→17:05)
[2019-03-10] MEDS: lamoTRIgine 100 MG TAB PO SCH (08:15)
[2019-03-10] MEDS: CITALOPRAM HYDROBROMIDE 20 MG TAB PO SCH (08:16)
[2019-03-10] MEDS ORDERED: SODIUM CHLORIDE 0.9% 1,000 ML in EMPTY BAG 1 BAG IV ONE (09:29)
[2019-03-10] MEDS ORDERED: NITROGLYCERIN SL TABS 0.4 MG TAB SUBLINGUAL PRN (09:29)
[2019-03-10] MEDS ORDERED: ALPRAZolam 0.25 MG TAB PO PRN (09:29)
[2019-03-10] MEDS ORDERED: ALPRAZolam 0.5 MG TAB PO PRN (09:29)
[2019-03-10] MEDS ORDERED: ATORVASTATIN 80 MG TAB PO STA (09:32)
[2019-03-10] MEDS ORDERED: ASPIRIN 325 MG TAB PO STA (09:32)
--- NOTE | 2019-03-10 10:01 | ECHOS ---
STRESS ECHOCARDIOGRAM INDICATIONS: Chest pain. MEDICATIONS: Celexa, Lamictal. BASELINE HEART RATE: 45 BASELINE BLOOD PRESSURE: 157/72 MAXIMUM HEART RATE: 186 MAXIMUM BLOOD PRESSURE: 187/84 85% MPHR: 160 100% MPHR: 188 MAXIMUM STAGE REACHED: 4 TOTAL EXERCISE TIME: 12:35 CLINICAL INFORMATION: Ghassan Balderas was admitted for chest pain and abnormal ECG with abnormal ST-segment with 1 mm elevation in the precordial leads with T-wave inversions in the precordial leads. He underwent a dobutamine stress echo, baseline heart rate 45 beats per minute. Baseline blood pressure 157/72 mmHg. The patient received dobutamine infusion per protocol for 40 mcg, thereafter, 1 mg of atropine was used. There was no definite or new ECG evidence for ischemia, but his baseline ECG was abnormal. There was normalization of the ST segments during dobutamine infusion. Occasional PVCs were noted. No chest pain was noted. Blood pressure response was normal. The baseline stress echo images showed normal LV size and systolic function without any segmental wall motion abnormalities with 10 mcg of dobutamine. There was improvement in the overall LV contractility without any definite wall motion abnormalities. However, at peak dobutamine infusion, there was reduction overall LV systolic function. At peak dobutamine infusion, there was a reduction in overall LV systolic function with reduced LV contractility, particularly in the apical and inferior soto. This persisted during recovery. IMPRESSION: 1. Abnormal ECG at baseline with ST elevation with T-wave inversions in the precordial leads. 2. Showed normalization with dobutamine infusion. 3. Occasional premature ventricular contractions. 4. Abnormal dobutamine stress echo response at peak infusion and recovery. MMODL / IJN: [id number] /
--- NOTE | 2019-03-10 10:06 | P.PN ---
Subjective Progress Note Date: 03/10/19 Principal diagnosis: Chest pain This is a pleasant 33-year-old gentleman with history of drug abuse who presents to the hospital with a chest discomfort and ruled out for acute coronary event. He underwent a dobutamine stress echocardiogram which came in to be equivocal for ischemia. The plan is to proceed with heart catheterization today. Objective - Vital Signs Vital signs: Vital Signs Temp 97.7 F 03/10/19 08:18 Pulse 51 L 03/10/19 08:18 Resp 16 03/10/19 08:18 BP 130/74 03/10/19 08:18 Pulse Ox 96 03/10/19 08:18 Intake & Output 03/09/19 03/10/19 03/10/19 18:59 06:59 18:59 Intake Total 240 490 Balance 240 490 Weight 81.193 kg 81.8 kg Intake: Intake, IV Titration 250 Amount Ampicillin-Sulbactam 3 gm 200 In Sodium Chloride 0.9% 100 ml @ 200 mls/hr IVPB Q6HR MATT Rx#:[id number] Sodium Chloride 0.9% 1, 50 000 ml @ 200 mls/hr IV . Q5H MATT Rx#:[id number] Oral 240 240 Other: Voiding Method Toilet # Voids 0 3 # Bowel Movements 0 - Constitutional General appearance: Present: no acute distress - Respiratory Respiratory: bilateral: CTA - Cardiovascular Rhythm: regular Heart sounds: normal: S1, S2 - Labs CBC & Chem 7: 03/08/19 06:46 03/09/19 21:37 Labs: Abnormal Lab Results - Last 24 Hours (Table) 03/09/19 Range/Units 21:37 Chloride 109 H (98-107) mmol/L Microbiology - Last 24 Hours (Table) 03/07/19 11:36 Blood Culture - Preliminary Blood No Growth after 48 hours Assessment and Plan Assessment: Assessment #1 chest discomfort #2 abnormal stress test Plan Proceed with coronary angiogram
[2019-03-10 11:28] LABS: Glucose,Whole Blood 136 mg/dL (75-99)
[2019-03-10 11:48] VITALS: TEMP 97.3
--- NOTE | 2019-03-10 13:37 | P.DS ---
Providers Date of admission: 03/07/19 06:32 Attending physician: Hemalatha Martinez Consults: 03/07/19 11:52 Consult Physician Urgent Consulting Provider: Aruna Fajardo Consult Reason/Comments: fever, drug abuse Do you want consulting provider notified?: Yes 03/07/19 12:07 Consult Physician Routine Consulting Provider: Jordan Owens Consult Reason/Comments: depression/overdose Do you want consulting provider notified?: Yes 03/08/19 17:22 Consult Physician Routine Consulting Provider: Buddy Carrera Consult Reason/Comments: NEW CHEST PAIN Do you want consulting provider notified?: Yes, Notify in am Primary care physician: Jessica Mcadams [facility] Course: Diagnoses: Fentanyl overdose for recreational reasons Hypotension with tachycardia, present on admission. Resolved Acute kidney injury, present on admission. Resolved Chest pain, resolved. Patient developed by certified residential medication aide who cleared him for discharge Systemic inflammatory response with fever and leukocytosis and tachycardia present on admission Sepsis with unknown exact origin, possible pneumonia. Suspicion is low as patient responded to fluids only Hospital course This is a pleasant 33 years old male, with past medical history of heroin overdose in 2013 who presented and had cardiac arrest, dorsi the point case, IV drug abuse, multiple drug abuse, bipolar and depression, who presents because of fentanyl overdose, patient says that he is been clean for a while and he said he injected himself 2 times with fentayl in his forearm at his parent's house when he passed out and they called EMS for him he could not remember more details however he denies other symptoms. He had denies chest pain, no dyspnea, no change in urine or bowel habits. No abdominal pain. On admission he has a fever of 102.8, he was hypertensive and tachycardic with acute kidney injury with creatinine 1.75 on admission. Chest x-ray: Showing atelectasis with less likely infection. Patient was treated with intravenous hydration and his vitals came back to normal. His creatinine also back to normal. White cell count was normal again yesterday and today at 5.7K. He has no fever for 48 hours. Also patient developed chest pain, CHF troponins and EKG were unremarkable. Digital Ad Trafficker evaluated the patient and recommended a stress test: ((pending)) Patient was cleared for discharge by cardiology team Patient on the day of discharge she remains asymptomatic. Patient has been evaluated by infectious disease who cleared him for discharge Psychiatric evaluation: Evaluated the patient and cleared him for discharge with recommendation to outpatient follow-up with his Own psychiatrist. I discussed this with the patient and he told me he can do that as he has his own psychiatrist Problems and management plan was discussed with the patient and he verbalized an distended and acceptance Patient was counseled about the risk of using the substances including but not limited to the risk of and he understands Patient was found stable and can be discharged home however he needs follow-up as an outpatient. Patient was instructed to follow up with his PCP in one week and he agrees Discharge exam Gen: patient is a AAOx3, no distress CVS: S1-S2, RRR, no murmur Lungs: B/L CTA, no wheezing Abdomen: soft, no distention, no tenderness, positive bowel sounds Extremity: no leg edema or induration Addendum: Stress test came back with abnormality, so discharge was held and for cardiology team to reevaluate Patient informed and he agrees Please consider this is as progress note rather than discharge summary Patient Condition at Discharge: Fair Plan - Discharge Summary Discharge Rx Participant: No New Discharge Prescriptions: New Amoxic-Pot Clav 875-125Mg [Augmentin 875-125] 1 tab PO Q12HR #10 tablet Continue lamoTRIgine [LaMICtal] 200 mg PO BID Citalopram Hydrobromide [CeleXA] 40 mg PO DAILY Discharge Medication List lamoTRIgine [LaMICtal] 200 mg PO BID 10/11/14 [History] Citalopram Hydrobromide [CeleXA] 40 mg PO DAILY 08/19/18 [History] Amoxic-Pot Clav 875-125Mg [Augmentin 875-125] 1 tab PO Q12HR #10 tablet 03/08/19 [Rx] Follow up Appointment(s)/Referral(s): Molly Lozoya MD [REFERRING] - 03/17/19 2:30 pm Jessica Mcadams MD [Primary Care Provider] - 1-2 days Aruna Fajardo MD [STAFF PHYSICIAN] - 03/15/19 1:45 pm Activity/Diet/Wound Care/Special Instructions: Resume your previous diet Activity as tolerated follow up with your outpatient psychiatrist in 1-2 weeks Discharge Disposition: HOME SELF-CARE
--- NOTE | 2019-03-10 13:40 | P.PN ---
Subjective This is a pleasant 33 years old male, with past medical history of heroin overdose in 2013 who presented and had cardiac arrest, nevai the point case, IV drug abuse, multiple drug abuse, bipolar and depression, who presents because of fentanyl overdose, patient says that he is been clean for a while and he said to dizziness or 2 times at his parent's house when he passed out and they called embolus for him he could not remember more details however he denies other symptoms. He had denies chest pain, no dyspnea, no change in urine or bowel siu bits. No abdominal pain. On admission he has a fever of 102.8, he was hypertensive and tachycardic with acute kidney injury with creatinine 1.75 on admission. Patient states that he takes a fentanyl for recreational reasons, he does not complain from pain. He denies other drug addiction. He smokes cigarettes about half pack per day with no alcohol. He has history of depression however he denies being depressed or suicidal at this time. Labs also showing leukocytosis with 14.8 K. Chest x-ray: Showing atelectasis with less likely infection, EKG: Sinus tachycardia at 122 with incomplete right bundle branch block. Subjective 03/10/2019 Patient is doing 5 with no symptoms, but stable he's tolerating diet well. She supposed to be discharged yesterday however his stress test came back abnormal so his discharge was held and patient is been evaluated by cylinder inspector team and going for coronary angiogram today. Objective - Vital Signs Vital signs: Vital Signs Temp 97.3 F L 03/10/19 11:45 Pulse 57 L 03/10/19 11:45 Resp 16 03/10/19 11:45 BP 122/71 03/10/19 11:45 Pulse Ox 98 03/10/19 11:45 Intake & Output 03/09/19 03/10/19 03/10/19 18:59 06:59 18:59 Intake Total 595 242 9438 Output Total 450 Balance 240 490 550 Weight 81.193 kg 81.8 kg Intake: Intake, IV Titration 250 1000 Amount Ampicillin-Sulbactam 3 gm 200 100 In Sodium Chloride 0.9% 100 ml @ 200 mls/hr IVPB Q6HR MATT Rx#:[id number] Sodium Chloride 0.9% 1, 50 000 ml @ 200 mls/hr IV . Q5H MATT Rx#:[id number] Sodium Chloride 0.9% 1, 900 000 ml In Empty Bag 1 bag @ 1 ML/KG/HR 81.8 mls/hr IV .[id number] ONE Rx#: [id number] Oral 240 240 Output: Urine 450 Other: Voiding Method Toilet # Voids 0 3 2 # Bowel Movements 0 - Exam GENERAL: The patient is alert and oriented x3, not in any acute distress. Well developed, well nourished. HEENT: Pupils are round and equally reacting to light. EOMI. No scleral icterus. No conjunctival pallor. Normocephalic, atraumatic. No pharyngeal erythema. No thyromegaly. CARDIOVASCULAR: S1 and S2 present. No murmurs, rubs, or gallops. PULMONARY: Chest is clear to auscultation, no wheezing or crackles. ABDOMEN: Soft, nontender, nondistended, normoactive bowel sounds. No palpable organomegaly. MUSCULOSKELETAL: No joint swelling or deformity. EXTREMITIES: No cyanosis, clubbing, or pedal edema. NEUROLOGICAL: Gross neurological examination did not reveal any focal deficits. SKIN: No rashes. - Labs CBC & Chem 7: 03/08/19 06:46 03/09/19 21:37 Labs: Abnormal Lab Results - Last 24 Hours (Table) 03/09/19 03/10/19 Range/Units 21:37 11:27 Chloride 109 H (98-107) mmol/L POC Glucose (mg/dL) 136 H (75-99) mg/dL Microbiology - Last 24 Hours (Table) 03/07/19 11:36 Blood Culture - Preliminary Blood No Growth after 48 hours Assessment and Plan Assessment: Fentanyl overdose Hypotension with tachycardia Acute kidney injury Systemic inflammatory response with fever and leukocytosis and tachycardia present on admission Sepsis with unknown exact origin, possible pneumonia. Rule out cardiac sources. Plan: This is a pleasant 33 years old male, patient has comes with fentanyl overdose and sepsis with acute kidney injury. We'll check influenza, send blood culture. Due echocardiogram and call infectious disease consult. Psychiatric evaluation for history of depression and the top of his neck overdose. Continue with aggressive hydration. Hold pain medication. Monitor vitals and labs.Labs and medication were reviewed.. Continue same treatment. Continue with symptomatic treatment. Resume home medication. Monitor lytes and vitals. DVT and GI prophylaxis. Further recommendations of the clinical course of the patient DVT prophylaxis: Subcutaneous heparin GI Prophylaxis: Pepcid Prognosis is guarded
[2019-03-10] MEDS ORDERED: SODIUM CHLORIDE 0.9% 1,000 ML IV ONE (14:14)
[2019-03-10] MEDS ORDERED: VERAPAMIL 2.5 MG/ML 2 ML AMP ONE (14:22)
[2019-03-10] MEDS ORDERED: LIDOCAINE 1% INJ 10MG/ML (20 ML MDV) ONE (14:22)
[2019-03-10] MEDS ORDERED: HEPARIN SODIUM 1,000 UN/ML (10ML VL) ONE (14:22)
[2019-03-10] MEDS ORDERED: MIDAZOLAM (PF) 2 MG/2 ML VIAL IV ONE (14:47)
[2019-03-10] MEDS ORDERED: LIDOCAINE 1% INJ 10MG/ML (20 ML MDV) SQ ONE (14:47)
[2019-03-10] MEDS: VERAPAMIL SYRINGE (5 MG/10 ML) INTRAARTER ONE ×2 (14:48→14:54)
[2019-03-10] MEDS ORDERED: IOPAMIDOL-370 125ML BTL INJ ONE (14:54)
--- NOTE | 2019-03-10 14:55 | PN ---
PROGRESS NOTE DATE OF SERVICE: 03/10/2019 REASON FOR FOLLOWUP: Fever, possible aspiration pneumonitis. INTERVAL HISTORY: The patient is currently afebrile. He has been breathing comfortably. Denies having any chest pain. Occasional cough. No nausea, vomiting. No abdominal pain or any diarrhea. PHYSICAL EXAMINATION: Blood pressure is 122/71 with a pulse of 57, temperature of 97.3, he is 98% on room air. General description is a middle-aged male, lying in bed in no distress. RESPIRATORY SYSTEM: Unlabored breathing, clear to auscultation anteriorly. HEART: S1, S2. Regular rate and rhythm. ABDOMEN: Soft, no tenderness. EXTREMITIES: No edema of the feet. LABS: BUN of 9, creatinine 0.7. Blood culture has been negative. DIAGNOSTIC IMPRESSION AND PLAN: Patient with fever, admitted in the hospital with episode of unresponsiveness from drug overdose with some infiltrate. Concern is likely for the aspiration pneumonitis. Overall improvement on exam. Will transition to oral Augmentin for short course to finish a course of therapy for about 5 days. Continue supportive care. MMODL / IJN: [id number] /
[2019-03-10] MEDS ORDERED: RX INFO: IV CONTRAST WAS GIVEN 1 EACH MISC MISCELLANE PRN (15:07)
[2019-03-10] MEDS ORDERED: SODIUM CHLORIDE 0.9% 1,000 ML IV SCH (15:15)
[2019-03-10 17:33] VITALS: BP 127/85; PULSE 77; RESP 18
--- NOTE | 2019-03-10 23:42 | CC ---
CARDIAC CATHETERIZATION REPORT DATE OF SERVICE: March 10, 2019 PERFORMING PHYSICIAN: Buddy Carrera MD, hand wrapper operator. PROCEDURE PERFORMED: 1. Selective right and left coronary angiogram. 2. Left heart catheterization. INDICATION: This is a pleasant 33-year-old gentleman who presented to the hospital with chest discomfort and underwent dobutamine stress echocardiogram, came in to be abnormal and concerning for ischemia. Because of that, a heart catheterization was advised. APPROACH: Right radial artery. COMPLICATION: None. LEVEL OF SEDATION: Moderate with sedation length of 10 minutes. PROCEDURE DESCRIPTION: After obtaining an informed consent, the patient was brought to cardiac veterinary laboratory technician. The right radial artery was cannulated using micropuncture technique and a micropuncture wire passed easily then I placed a 6-Bengali sheath in the right radial artery. I gave the patient 2 mg of verapamil IA and 10,000 units of heparin IV. Subsequently, I did selective right and left coronary angiogram using JR4 and JL3.5 catheters. Left heart catheterization was performed using the JR4 catheter which crossed the aortic valve. Then I did pullback across aortic valve. The procedure was completed without any complication. LEFT CORONARY ANGIOGRAM: 1. The right coronary artery is a large caliber vessel. It is a dominant vessel and appeared to be angiographically normal. 2. The left main is angiographically normal. It bifurcates into the circumflex and left anterior descending artery. 3. Left circumflex is a moderate caliber vessel and nondominant vessel. The circumflex is angiographically normal and gives rise into first and second OM branches, both appeared to be angiographically normal. 4. The LAD: LAD is angiographically normal. It gives rise into the first and second diagonal branches, both appeared to be angiographically normal. HEMODYNAMICS: The left ventricular end diastolic pressure was about 10 mmHg without significant gradient across the aortic valve. CONCLUSION: 1. Normal coronary angiogram. 2. Normal left ventricular end-diastolic pressure. POSTPROCEDURE MANAGEMENT: Medical treatment and follow up with the patient. MMODL / IJN: [id number] /
== END 2019-03-10 17:55 | disposition home or self-care (01) | DRG 917 ==
LOC: EC 03:47 → 3SCARD 06:32 → EC 07:10
PROVIDERS: ADMIT Hospitalist; ATTEND Hospitalist
PROC: B2111ZZ Fluoroscopy of Multiple Coronary Arteries using Low Osmolar Contrast (ICD-10-PCS; 2019-03-10)
PROC: B2151ZZ Fluoroscopy of Left Heart using Low Osmolar Contrast (ICD-10-PCS; 2019-03-10)
PROC: 4A023N7 Measurement of Cardiac Sampling and Pressure, Left Heart, Percutaneous Approach (ICD-10-PCS; principal; 2019-03-10 14:10)
DX: T40.4X1A Poisoning by other synthetic narcotics, accidental (unintentional), initial encounter (principal); A41.9 Sepsis, unspecified organism; J69.0 Pneumonitis due to inhalation of food and vomit; F31.30 Bipolar disorder, current episode depressed, mild or moderate severity, unspecified; N17.9 Acute kidney failure, unspecified; J98.11 Atelectasis; F17.210 Nicotine dependence, cigarettes, uncomplicated; I45.10 Unspecified right bundle-branch block; Z86.74 Personal history of sudden cardiac arrest; Z79.899 Other long term (current) drug therapy; Z82.5 Family history of asthma and other chronic lower respiratory diseases; Z87.01 Personal history of pneumonia (recurrent); R94.39 Abnormal result of other cardiovascular function study; Z71.51 Drug abuse counseling and surveillance of drug abuser; I10 Essential (primary) hypertension
CPT/HCPCS: 36415; 71045; 71046; 80048; 80306; 84484; 85025; 87040; 87502; 93005; 93306; 93351; 93458; 94760; 96361; 96374; 99291

== ENCOUNTER 2019-04-04 04:42 | Inpatient (IN) | payer OTHER ==
[2019-04-04] MEDS ORDERED: SODIUM CHLORIDE 0.9% 1,000 ML IV STA (04:51)
[2019-04-04] MEDS ORDERED: MAGNESIUM SULFATE SYG 4.06 MEQ/ML SYRINGE IV ONE (05:00)
--- NOTE | 2019-04-04 05:08 | XR ---
EXAM: XR Chest, 1 View CLINICAL HISTORY: unresponsive TECHNIQUE: Frontal view of the chest. COMPARISON: 03/07/19 FINDINGS: Lungs: Small amount of airspace opacities in right lung. Pleural space: Unremarkable. No pneumothorax. Heart: Unremarkable. No cardiomegaly. Mediastinum: Unremarkable. Bones/joints: Unremarkable. Tubes, lines and devices: Tip of endotracheal tube is about 5 cm above the jose. Tip of enteric tube is in the body the stomach. IMPRESSION: Asymmetrical right pulmonary edema versus pneumonia Supporting tubes are in place
[2019-04-04 05:11] LABS: Glucose,Whole Blood 90 mg/dL (75-99)
[2019-04-04 05:20] LABS: Amphetamine Screen,Urine Not Detected (NotDetected); Barbiturate Screen,Urine Not Detected (NotDetected); Benzodiazepines Screen,Urine Not Detected (NotDetected); Cocaine Screen,Urine Not Detected (NotDetected); Methadone Screen, Urine Detected (NotDetected); Opiate Screen,Urine Not Detected (NotDetected); Oxycodone Screen, Urine Not Detected (NotDetected); Phencyclidine Screen,Urine Not Detected (NotDetected); Tricyclic Antidepressant,Urine Not Detected (NotDetected); Urn Cannabinoid Scrn Not Detected (NotDetected)
[2019-04-04] MEDS ORDERED: NOREPINEPHRINE 8 MG in SODIUM CHLORIDE 0.9% 250 ML IV STA (05:22)
[2019-04-04] MEDS: MAGNESIUM SULFATE-D5W PMX 1 GM in DEXTROSE/WATER 1 100ML.BAG IVPB SCH ×2 (05:25→08:07)
--- NOTE | 2019-04-04 05:34 | ED ---
CPR HPI - General Chief Complaint: Cardiac Arrest/CPR Stated Complaint: Unresponsive Source: EMS Mode of arrival: EMS Limitations: altered mental status - History of Present Illness Initial Comments: Ghassan is a 33-year-old gentleman with a history of opiate abuse and a history of cardiac arrest due to torsades in 2013 or 2014. Patient is brought to the ER today [facility] they were dispatched for an unresponsive person. Per the nurse at [facility] they were notified by the patient's roommate that the patient seemed to be sleepy and that the roommate noticed that he was no longer breathing and started CPR, room 8 reported that he did CPR for approximately 5 minutes before deciding to go alert staff at which time they responded and found the patient cold, cyanotic and pulseless. They began CPR and also administered 3 doses of intranasal Narcan with no response. EMS reports that they arrived on scene to find the patient cold cyanotic pulseless. CPR was initiated using the Kimo device for continuous compressions, patient was intubated with a 7.5 tube, IV access was obtained and patient was found to have a blood glucose of only 29. In addition to 3 rounds of epinephrine patient was given an amp of D50. Return of spontaneous circulation was obtained and the patient was transported to the emergency department for further evaluation. Despite being intubated and having prolonged CPR the patient required no after return of spontaneous circulation. - Related Data Home Medications Medication Instructions Recorded Confirmed lamoTRIgine [LaMICtal] 200 mg PO BID 10/11/14 03/07/19 Citalopram Hydrobromide [CeleXA] 40 mg PO DAILY 08/19/18 03/07/19 Previous Rx's Medication Instructions Recorded Amoxic-Pot Clav 875-125Mg 1 tab PO Q12HR #10 tablet 03/08/19 [Augmentin 875-125] Allergies Allergy/AdvReac Type Severity Reaction Status Date / Time No Known Allergies Allergy Verified 04/04/19 04:48 Review of Systems ROS Statement: Those systems with pertinent positive or pertinent negative responses have been documented in the HPI. ROS Other: All systems not noted in ROS Statement are negative. Limitations: ROS unobtainable due to patients medical condition Past Medical History Past Medical History: Pneumonia Additional Past Medical History / Comment(s): 2013 Heroin overdose/vented and had cardiac arrest-torsades de pointes, possible aspiration pneumonia, multi drug abuse-IVDA History of Any Multi-Drug Resistant Organisms: None Reported Past Surgical History: No Surgical Hx Reported Past Psychological History: Bipolar, Depression Smoking Status: Current every day smoker Past Alcohol Use History: None Reported Past Drug Use History: Heroin - Past Family History Father Family Medical History: COPD Additional Family Medical History / Comment(s): Father is a smoker Mother Family Medical History: No Reported History Additional Family Medical History / Comment(s): Mother is healthy General Exam - General Exam Comments Initial Comments: Physical Exam GENERAL: Unresponsive HENT: Normocephalic, Atraumatic. EYES: Pupils 4mm fixed PULMONARY: Ventilator dependent Clear lung sounds bilaterally CARDIOVASCULAR: There is a regular rate and rhythm without any murmurs gallops or rubs. Bedside echo with no pericardial effusion, EF appears to be >40% Bruising on chest from CPR ABDOMEN: Soft and nontender with normal bowel sounds. SKIN: mottled extremities : Normal external genitalia Rectal exam reveals a yellow condom filled with liquid, this was removed NEUROLOGIC: Unresponsive No corneal reflex No gag reflex No babinski reflex MUSCULOSKELETAL: Twitching of head PSYCHIATRIC: Unable to assess Limitations: altered mental status Course Vital Signs 04/04/19 04/04/19 04/04/19 04:45 04:48 04:57 Temperature 99.3 F Pulse Rate 73 74 Respiratory 20 20 14 Rate Blood Pressure 112/94 113/70 O2 Sat by Pulse 92 L 100 Oximetry 04/04/19 04/04/19 04/04/19 04:58 05:25 06:00 Temperature Pulse Rate 80 75 78 Respiratory 20 14 20 Rate Blood Pressure 118/92 63/32 80/55 O2 Sat by Pulse 97 98 99 Oximetry 04/04/19 04/04/19 04/04/19 06:27 06:31 06:41 Temperature Pulse Rate 90 89 95 Respiratory 16 16 16 Rate Blood Pressure 98/55 85/71 108/54 O2 Sat by Pulse 98 98 98 Oximetry 04/04/19 04/04/19 06:52 06:58 Temperature Pulse Rate 94 93 Respiratory 16 16 Rate Blood Pressure 103/91 112/98 O2 Sat by Pulse 98 98 Oximetry Medical Decision Making - Medical Decision Making Patient was seen and evaluated immediately upon arrival the emergency department Patient CPR prior to arrival, 3 rounds of CPR with 3 doses of epinephrine prior to return of spontaneous circulation sign patient also received 10 mg of Narcan, 6 intranasally in for IV On arrival patient was unresponsive, intubated not requiring any sedation excited he was noted to have some jerking motions of his head consistent with myoclonic jerks no definitive seizure activity no meaningful movements Patient is noted to becoming hypotensive, there is difficult IV access decision was made to place a right femoral central line which was placed without difficulty blood was obtained and sent to lab Patient's mother was contacted a voicemail was left on her cell phone care was discussed with the heart the transferring facility, nurse there has also attempted to contact the patient's mother. Nurse there was unable to provide any further meaningful history. After the procedure patient was noted to be diaphoretic there is concern he may again be hypoglycemic, glucose was noted to be 45 and an additional amp of D50 was ordered Multiple significant abnormalities consistent with multisystem organ failure including shock liver, hyperkalemia Hyperkalemia protocol medications were ordered - Lab Data Result diagrams: 04/04/19 05:15 04/04/19 05:15 Lab Results 04/04/19 04/04/19 04/04/19 Range/Units 04:49 04:53 05:15 WBC (3.8-10.6) k/uL RBC (4.30-5.90) m/uL Hgb (13.0-17.5) gm/dL Hct (39.0-53.0) % MCV (80.0-100.0) fL MCH (25.0-35.0) pg MCHC (31.0-37.0) g/dL RDW (11.5-15.5) % Plt Count (150-450) k/uL Neutrophils % (Manual) % Band Neutrophils % % Lymphocytes % (Manual) % Monocytes % (Manual) % Neutrophils # (Manual) (1.3-7.7) k/uL Lymphocytes # (Manual) (1.0-4.8) k/uL Monocytes # (Manual) (0-1.0) k/uL Nucleated RBCs (0-0) /100 WBC Manual Slide Review Hypochromasia Sample Site ABG pH (7.35-7.45) ABG pCO2 (35-45) mmHg ABG pO2 (83-108) mmHg ABG HCO3 (21-25) mmol/L ABG Total CO2 (19-24) mmol/L ABG O2 Saturation (94-97) % ABG Base Excess mmol/L Pelon Test FiO2 % Sodium 139 (137-145) mmol/L Potassium 7.9 H* (3.5-5.1) mmol/L Chloride 105 (98-107) mmol/L Carbon Dioxide 13 L (22-30) mmol/L Anion Gap 21 mmol/L BUN 17 (9-20) mg/dL Creatinine 2.72 H (0.66-1.25) mg/dL Est GFR (CKD-EPI)AfAm 34 (>60 ml/min/1.73 sqM) Est GFR (CKD-EPI)NonAf 30 (>60 ml/min/1.73 sqM) Glucose 54 L (74-99) mg/dL POC Glucose (mg/dL) 90 (75-99) mg/dL POC Glu Printing Engineer ID Judy Felix Plasma Lactic Acid Keshav (0.7-2.0) mmol/L Calcium 7.7 L (8.4-10.2) mg/dL Total Bilirubin 0.8 (0.2-1.3) mg/dL AST 4677 H (17-59) U/L ALT 4768 H (21-72) U/L Alkaline Phosphatase 67 (38-126) U/L Creatine Kinase 96 (55-170) U/L Troponin I (0.000-0.034) ng/mL Total Protein 5.6 L (6.3-8.2) g/dL Albumin 3.5 (3.5-5.0) g/dL Amylase 199 H (30-110) U/L Lipase 684 H (23-300) U/L Salicylates <1.0 mg/dL Urine Opiates Screen Not Detected (NotDetected) Ur Oxycodone Screen Not Detected (NotDetected) Urine Methadone Screen Detected H (NotDetected) Ur Propoxyphene Screen Not Detected (NotDetected) Acetaminophen <10.0 ug/mL Ur Barbiturates Screen Not Detected (NotDetected) U Tricyclic Antidepress Not Detected (NotDetected) Ur Phencyclidine Scrn Not Detected (NotDetected) Ur Amphetamines Screen Not Detected (NotDetected) U Methamphetamines Scrn Not Detected (NotDetected) U Benzodiazepines Scrn Not Detected (NotDetected) Urine Cocaine Screen Not Detected (NotDetected) U Marijuana (THC) Screen Not Detected (NotDetected) Serum Alcohol <10 mg/dL 04/04/19 04/04/19 04/04/19 Range/Units 05:15 05:15 05:15 WBC 19.0 H (3.8-10.6) k/uL RBC 4.98 (4.30-5.90) m/uL Hgb 14.2 (13.0-17.5) gm/dL Hct 47.2 (39.0-53.0) % MCV 94.9 D (80.0-100.0) fL MCH 28.5 (25.0-35.0) pg MCHC 30.1 L (31.0-37.0) g/dL RDW 14.8 (11.5-15.5) % Plt Count 150 (150-450) k/uL Neutrophils % (Manual) 70 % Band Neutrophils % 1 % Lymphocytes % (Manual) 24 % Monocytes % (Manual) 5 % Neutrophils # (Manual) 13.40 H (1.3-7.7) k/uL Lymphocytes # (Manual) 4.56 (1.0-4.8) k/uL Monocytes # (Manual) 0.95 (0-1.0) k/uL Nucleated RBCs 0 (0-0) /100 WBC Manual Slide Review Performed Hypochromasia Marked Sample Site ABG pH (7.35-7.45) ABG pCO2 (35-45) mmHg ABG pO2 (83-108) mmHg ABG HCO3 (21-25) mmol/L ABG Total CO2 (19-24) mmol/L ABG O2 Saturation (94-97) % ABG Base Excess mmol/L Pelon Test FiO2 % Sodium (137-145) mmol/L Potassium (3.5-5.1) mmol/L Chloride (98-107) mmol/L Carbon Dioxide (22-30) mmol/L Anion Gap mmol/L BUN (9-20) mg/dL Creatinine (0.66-1.25) mg/dL Est GFR (CKD-EPI)AfAm (>60 ml/min/1.73 sqM) Est GFR (CKD-EPI)NonAf (>60 ml/min/1.73 sqM) Glucose (74-99) mg/dL POC Glucose (mg/dL) (75-99) mg/dL POC Glu Printing Engineer ID Plasma Lactic Acid Keshav 12.6 H* (0.7-2.0) mmol/L Calcium (8.4-10.2) mg/dL Total Bilirubin (0.2-1.3) mg/dL AST (17-59) U/L ALT (21-72) U/L Alkaline Phosphatase (38-126) U/L Creatine Kinase (55-170) U/L Troponin I 0.153 H* (0.000-0.034) ng/mL Total Protein (6.3-8.2) g/dL Albumin (3.5-5.0) g/dL Amylase (30-110) U/L Lipase (23-300) U/L Salicylates mg/dL Urine Opiates Screen (NotDetected) Ur Oxycodone Screen (NotDetected) Urine Methadone Screen (NotDetected) Ur Propoxyphene Screen (NotDetected) Acetaminophen ug/mL Ur Barbiturates Screen (NotDetected) U Tricyclic Antidepress (NotDetected) Ur Phencyclidine Scrn (NotDetected) Ur Amphetamines Screen (NotDetected) U Methamphetamines Scrn (NotDetected) U Benzodiazepines Scrn (NotDetected) Urine Cocaine Screen (NotDetected) U Marijuana (THC) Screen (NotDetected) Serum Alcohol mg/dL 04/04/19 04/04/19 Range/Units 05:35 05:42 WBC (3.8-10.6) k/uL RBC (4.30-5.90) m/uL Hgb (13.0-17.5) gm/dL Hct (39.0-53.0) % MCV (80.0-100.0) fL MCH (25.0-35.0) pg MCHC (31.0-37.0) g/dL RDW (11.5-15.5) % Plt Count (150-450) k/uL Neutrophils % (Manual) % Band Neutrophils % % Lymphocytes % (Manual) % Monocytes % (Manual) % Neutrophils # (Manual) (1.3-7.7) k/uL Lymphocytes # (Manual) (1.0-4.8) k/uL Monocytes # (Manual) (0-1.0) k/uL Nucleated RBCs (0-0) /100 WBC Manual Slide Review Hypochromasia Sample Site Right Radial ABG pH <7.00 L* (7.35-7.45) ABG pCO2 60 H (35-45) mmHg ABG pO2 323 H (83-108) mmHg ABG HCO3 12 L (21-25) mmol/L ABG Total CO2 14 L (19-24) mmol/L ABG O2 Saturation 98.9 H (94-97) % ABG Base Excess -21.1 mmol/L Pelon Test Yes FiO2 100 % Sodium (137-145) mmol/L Potassium (3.5-5.1) mmol/L Chloride (98-107) mmol/L Carbon Dioxide (22-30) mmol/L Anion Gap mmol/L BUN (9-20) mg/dL Creatinine (0.66-1.25) mg/dL Est GFR (CKD-EPI)AfAm (>60 ml/min/1.73 sqM) Est GFR (CKD-EPI)NonAf (>60 ml/min/1.73 sqM) Glucose (74-99) mg/dL POC Glucose (mg/dL) 47 L (75-99) mg/dL POC Glu Printing Engineer ID Costa Mohamud Plasma Lactic Acid Keshav (0.7-2.0) mmol/L Calcium (8.4-10.2) mg/dL Total Bilirubin (0.2-1.3) mg/dL AST (17-59) U/L ALT (21-72) U/L Alkaline Phosphatase (38-126) U/L Creatine Kinase (55-170) U/L Troponin I (0.000-0.034) ng/mL Total Protein (6.3-8.2) g/dL Albumin (3.5-5.0) g/dL Amylase (30-110) U/L Lipase (23-300) U/L Salicylates mg/dL Urine Opiates Screen (NotDetected) Ur Oxycodone Screen (NotDetected) Urine Methadone Screen (NotDetected) Ur Propoxyphene Screen (NotDetected) Acetaminophen ug/mL Ur Barbiturates Screen (NotDetected) U Tricyclic Antidepress (NotDetected) Ur Phencyclidine Scrn (NotDetected) Ur Amphetamines Screen (NotDetected) U Methamphetamines Scrn (NotDetected) U Benzodiazepines Scrn (NotDetected) Urine Cocaine Screen (NotDetected) U Marijuana (THC) Screen (NotDetected) Serum Alcohol mg/dL - EKG Data -: EKG Interpreted by Me EKG Comments: EKG obtained at 449am rate is 74, rhythm is sinus, [place] 144, QRS is wide at 136, QTC 438, QTC is 46 to be a right bundle branch block there is some respiratory artifact there is no acute ST elevations or depressions or signs of acute ischemia or infarction. Critical Care Time Critical Care Time: Yes Total Critical Care Time: 60 Critical Care Time: Critical Care Time Critical care time was exclusive of separately billable procedures and treating other patients and teaching time. Critical care was necessary to treat or prevent imminent or life-threatening deterioration. Given the critical condition in which the patient arrived, the patient was immediately assessed by myself and the nurse, and cardiac monitoring initiated due to the potential for rapid decompensation of the patient's clinical condition. During the course of the patients stay, I spent a considerable amount of time at the bedside performing serial re-evaluations of the patient's hemodynamic and clinical status because of the recognized potential threat to life or limb in this condition. I then had a chance to review not only all of the available current laboratory and radiographic studies obtained today, but I also reviewed old records available to me at the time. Additionally, any ancillary information available including corporate legal secretary records were reviewed. Sequential vital signs were obtained. Disposition Clinical Impression: Cardiac arrest, Multisystem organ failure, Shock liver, ELDA (acute kidney injury), Hyperkalemia Disposition: ADMITTED IP TO THIS HOSP Condition: Critical
[2019-04-04 05:40] LABS: ABG Base Excess -21.1 mmol/L; ABG HCO3 12 mmol/L (21-25); ABG Oxygen Saturation 98.9 % (94-97); ABG PCO2 60 mmHg (35-45); ABG PO2 323 mmHg (83-108); ABG TCO2 14 mmol/L (19-24)
[2019-04-04 05:40] LABS: HCT 47.2 % (39.0-53.0); HGB 14.2 gm/dL (13.0-17.5); Hypochromasia Marked; MCH 28.5 pg (25.0-35.0); MCHC 30.1 g/dL (31.0-37.0); MCV 94.9 fL (80.0-100.0); Mean Platelet Volume 7.9; Platelet Count 150 k/uL (150-450); RBC 4.98 m/uL (4.30-5.90); RDW 14.8 % (11.5-15.5)
[2019-04-04 05:41] LABS: Acetaminophen <10.0 ug/mL; Albumin 3.5 g/dL (3.5-5.0); Alcohol <10 mg/dL; Alkaline Phosphatase 67 U/L (38-126); Amylase 199 U/L (30-110); Anion Gap 21 mmol/L; Blood Urea Nitrogen 17 mg/dL (9-20); Calcium 7.7 mg/dL (8.4-10.2); Carbon Dioxide 13 mmol/L (22-30); Chloride 105 mmol/L (98-107); Creatine Kinase 96 U/L (55-170); Glucose 54 mg/dL (74-99); Lipase 684 U/L (23-300); Salicylate <1.0 mg/dL; Sodium 139 mmol/L (137-145); Total Bilirubin 0.8 mg/dL (0.2-1.3); Total Protein 5.6 g/dL (6.3-8.2)
[2019-04-04] MEDS ORDERED: DEXTROSE 50% SYRINGE 50 ML IVP STA ×4 (05:44→17:59)
[2019-04-04 05:52] LABS: Glucose,Whole Blood 47 mg/dL (75-99)
[2019-04-04 05:52] LABS: Band Neutrophils % 1 %; Lymphocytes # (M) 4.56 k/uL (1.0-4.8); Monocytes # (M) 0.95 k/uL (0-1.0); Neutrophils % (M) 70 %; Nucleated Red Blood Cells 0 /100 WBC (0-0); Total Cells Counted 100
[2019-04-04] MEDS ORDERED: CALCIUM CHLORIDE 100 MG/ML 10 ML SYRINGE IVP STA (06:02)
[2019-04-04] MEDS ORDERED: SODIUM CHLORIDE 0.9% 2,000 ML IV ONE (06:02)
[2019-04-04] MEDS ORDERED: INSULIN REGULAR 100 UNIT/ML VIAL IV ONE ×2 (06:02→17:57)
[2019-04-04] MEDS ORDERED: SODIUM BICARB 8.4% 50 ML SYR (1 MEQ/ML) IV STA ×3 (06:03→17:57)
[2019-04-04] MEDS ORDERED: NALOXONE 0.4 MG/ML 1 ML VIAL IV PRN (06:06)
[2019-04-04 06:09] LABS: Potassium 7.9 mmol/L (3.5-5.1)
[2019-04-04 06:11] LABS: ALT 4768 U/L (21-72); AST 4677 U/L (17-59)
[2019-04-04] MEDS ORDERED: SODIUM CHLORIDE 0.9% 1,000 ML IV SCH (06:15)
[2019-04-04] MEDS ORDERED: MIDAZOLAM 1 MG/ML 5 ML VIAL IV STA (06:27)
--- NOTE | 2019-04-04 06:32 | CT ---
EXAM: CT Head Without Intravenous Contrast CLINICAL HISTORY: unresponsive TECHNIQUE: Axial computed tomography images of the head/brain without intravenous contrast. CTDI is 49.1 mGy and DLP is 1138.4 mGy-cm. This CT exam was performed using one or more of the following dose reduction techniques: automated exposure control, adjustment of the mA and/or kV according to patient size, and/or use of iterative reconstruction technique. COMPARISON: No relevant prior studies available. FINDINGS: Brain: Unremarkable. No hemorrhage. No significant white matter disease. No edema. Ventricles: Unremarkable. No ventriculomegaly. Bones/joints: Unremarkable. No acute fracture. Soft tissues: Unremarkable. Sinuses: Unremarkable as visualized. No acute sinusitis. Mastoid air cells: Unremarkable as visualized. No mastoid effusion. IMPRESSION: Unremarkable CT brain
[2019-04-04 06:49] LABS: ABG PH <7.00 (7.35-7.45)
[2019-04-04 08:45] LABS: Glucose,Whole Blood 112 mg/dL (75-99)
[2019-04-04 09:04] LABS: Albumin 3.3 g/dL (3.5-5.0); Calcium 7.3 mg/dL (8.4-10.2); Total Protein 5.4 g/dL (6.3-8.2)
[2019-04-04 09:05] LABS: ABG Base Excess -21.2 mmol/L; ABG Oxygen Saturation 93.7 % (94-97); ABG PCO2 44 mmHg (35-45); ABG PO2 88 mmHg (83-108); ABG TCO2 12 mmol/L (19-24)
[2019-04-04 09:08] LABS: ABG HCO3 10 mmol/L (21-25); ABG PH <7.00 (7.35-7.45)
[2019-04-04 09:14] LABS: HCT 52.5 % (39.0-53.0); HGB 15.6 gm/dL (13.0-17.5); Hypochromasia Marked; MCHC 29.7 g/dL (31.0-37.0); MCV 94.1 fL (80.0-100.0); Mean Platelet Volume 8.3; RBC 5.58 m/uL (4.30-5.90); RDW 14.7 % (11.5-15.5); WBC 23.4 k/uL (3.8-10.6)
[2019-04-04 09:15] LABS: INR 2.9 (<1.2); Prothrombin Time 28.1 sec (9.0-12.0)
[2019-04-04 09:37] LABS: Potassium 6.6 mmol/L (3.5-5.1)
[2019-04-04 09:46] LABS: Glucose,Whole Blood 86 mg/dL (75-99)
[2019-04-04 09:52] LABS: Band Neutrophils % 8 %; Lymphocytes # (M) 5.38 k/uL (1.0-4.8); Metamyelocytes # (M) 0.47 k/uL (0); Metamyelocytes % 2 %; Monocytes # (M) 0.47 k/uL (0-1.0); Myelocytes # (M) 0.23 k/uL (0); Myelocytes % 1 %; Neutrophils % (M) 66 %; Nucleated Red Blood Cells 0 /100 WBC (0-0); Total Cells Counted 200
[2019-04-04 09:54] LABS: Platelet Count 82 k/uL (150-450)
[2019-04-04] MEDS ORDERED: DEXTROSE 5%-0.9% NACL 1,000 ML IV SCH (10:15)
[2019-04-04] MEDS: NOREPINEPHRINE 32 MG in SODIUM CHLORIDE 0.9% 218 ML IV SCH ×2 (10:29→17:29)
[2019-04-04] MEDS: PANTOPRAZOLE 40 MG/10 ML VIAL IVP SCH (10:29)
[2019-04-04] MEDS: PIPERACILLIN-TAZOBACTAM 3.375 GM in SODIUM CHLORIDE 0.9% 100 ML IVPB SCH ×3 (10:29→23:11)
[2019-04-04 10:50] LABS: ABG Base Excess -23.2 mmol/L; ABG Oxygen Saturation 95.8 % (94-97); ABG PCO2 35 mmHg (35-45); ABG PO2 99 mmHg (83-108); ABG TCO2 10 mmol/L (19-24)
[2019-04-04 10:57] LABS: ABG HCO3 8 mmol/L (21-25)
--- NOTE | 2019-04-04 11:05 | P.CNPUL ---
History of Present Illness Consult date: 04/04/19 Chief complaint: Cardiac arrest History of present illness: Ghassan is a 33-year-old gentleman with a history of opiate abuse and a history of cardiac arrest due to torsades in 2013 or 2014. Patient is brought to the ER today via EMS from a [facility] facility where they were dispatched for an unresponsive person. Per the nurse at [facility] they were notified by the patient's roommate that the patient seemed to be sleepy and that the roommate noticed that he was no longer breathing and started CPR, room 8 reported that he did CPR for approximately 5 minutes before deciding to go alert staff at which t [facility] they responded and found the patient cold, cyanotic and pulseless. They began CPR and also administered 3 doses of intranasal Narcan with no response. EMS reports that they arrived on scene to find the patient cold cyanotic pulseless. CPR was initiated using the Kimo device for continuous co mpressions, patient was intubated with a 7.5 tube, IV access was obtained and patient was found to have a blood glucose of only 29. In addition to 3 rounds of epinephrine patient was given an amp of D50. Return of spontaneous circulation was obtained and the patient was transported to the emergency department for further evaluation. Currently the patient is in the intensive care unit. He was unable to get hold of the EMS run sheet and I'm not sure of the exact downtime. Nevertheless, base d on this presentation, the patient seems to have a prolonged downtime. The patient is currently intubated on a mechanical ventilator. Unresponsive. He is having some myoclonic jerks. Pupils are about 3-4 mm in size, sluggish and nonreactive. No corneal reflex. He has a positive breathing reflex and cough. On and off she jerks and he has some myoclonic activity. He is on a mechanical ventilator. He is in shock and he is on high-dose norepinephrine infusion running at 90 g per minute. His most recent systolic blood pressure was in the mid 90s. Based on that, I inserted an art line catheter for hemodynamic monitoring. Blood gases this point shows a pH of 6.9 with a pCO2 of 35 and a pO2 of 98. This was done and the patient is currently on a VC plus mode with a tidal volume of 600 and the rate of 26 and FiO2 of 80% with a PEEP of 5. The patient is also on D5 normal saline today to 200 mL an hour. Urine output has been only 30 mL since he came from the emergency department. His potassium level is improving as it was as high as 7.9 is currently down to 6.6. Serum bicarb is 14. Lactic acid level was 12.6 currently 11.1. LFTs abnormal consistent with shock liver. AST is 8613, ALT is 8246, troponin max is 1.4, lipase is 684, a urine drug screen is positive for opiates, white cell count is at 23.4. Hemoglobin is at 15.6. CAT scan of the brain showed no acute abnorm alities. Chest x-ray showing asymmetric right-sided edema versus pneumonia. The patient has an ET tube in place which is quite elevated around 5 cm above the jose. Review of Systems ROS unobtainable: due to endotracheal tube Past Medical History Past Medical History: Pneumonia Additional Past Medical History / Comment(s): 2013 Heroin overdose/vented and had cardiac arrest-torsades de pointes, possible aspiration pneumonia, multi drug abuse-IVDA History of Any Multi-Drug Resistant Organisms: None Reported Past Surgical History: No Surgical Hx Reported Past Psychological History: Bipolar, Depression Smoking Status: Current every day smoker Past Alcohol Use History: None Reported Past Drug Use History: Heroin - Past Family History Father Family Medical History: COPD Additional Family Medical History / Comment(s): Father is a smoker Mother Family Medical History: No Reported History Additional Family Medical History / Comment(s): Mother is healthy Medications and Allergies Home Medications Medication Instructions Recorded Confirmed Type lamoTRIgine [LaMICtal] 200 mg PO DAILY 10/11/14 04/04/19 History Citalopram Hydrobromide [CeleXA] 40 mg PO DAILY 08/19/18 04/04/19 History Allergies Allergy/AdvReac Type Severity Reaction Status Date / Time No Known Allergies Allergy Verified 04/04/19 08:46 Physical Exam Vitals: Vital Signs Temp Pulse Pulse Resp BP BP Pulse Ox 04/04/19 09:30 97.7 F 114 H 26 H 88/70 04/04/19 09:05 98.0 F 103 H 21 102/58 98 04/04/19 08:30 98 21 107/84 98 04/04/19 08:00 100 20 100/81 99 04/04/19 07:30 98 21 102/68 99 05/27/19 07:00 93 16 113/76 99 04/04/19 06:58 93 16 112/98 98 04/04/19 06:52 94 16 103/91 98 04/04/19 06:41 95 16 108/54 98 04/04/19 06:31 89 16 85/71 98 04/04/19 06:27 90 16 98/55 98 04/04/19 06:00 78 20 80/55 99 04/04/19 05:25 75 14 63/32 98 04/04/19 04:58 80 20 118/92 97 04/04/19 04:57 14 04/04/19 04:48 74 20 113/70 100 04/04/19 04:45 99.3 F 73 20 112/94 92 L Intake and Output 04/03/19 04/04/19 04/04/19 22:59 06:59 14:59 Intake Total 10.711 200 Output Total 30 Balance 10.711 170 Intake: Intake, IV Titration 10.711 200 Amount Norepinephrine 8 mg In 10.711 Sodium Chloride 0.9% 250 ml @ 0.05 MCG/KG/MIN 7. 827 mls/hr IV .Q24H STA Rx#:[id number] Sodium Chloride 0.9% 1, 200 000 ml @ 200 mls/hr IV . Q5H MATT Rx#:[id number] Output: Urine 30 Other: Voiding Method Indwelling Catheter # Bowel Movements 1 Weight 80.9 kg Currently intubated on a mechanical ventilator, unresponsive to any verbal to painful stimulation. He is having with just occasional myoclonic jerks. Head exam was generally normal. There was no scleral icterus or corneal arcus. Mucous membranes were moist. Neck was supple and without jugular venous distension, thyromegaly, or carotid bruits. Carotids were easily palpable bilaterally. There was no adenopathy. The patient has an orogastric and orotracheal tube are both of them are in place. Lungs were clear to auscultation and percussion, and with normal diaphragmatic excursion. No wheezes or rales were noted. Cardiac exam revealed the PMI to be normally situated and sized. The rhythm was regular and no extrasystoles were noted during several minutes of auscultation. The first and second heart sounds were normal and physiologic splitting of the second heart sound was noted. There were no murmurs, rubs, clicks, or gallops. Abdominal exam revealed normal bowel sounds. The abdomen was soft, non-tender, and without masses, organomegaly, or appreciable enlargement of the abdominal aorta. Extremities are cold and clammy and there is diminished pulses in all 4 extremities. No cyanosis or clubbing. Examination of the skin revealed no evidence of significant rashes, suspicious appearing nevi or other concerning lesions. Neurologically the patient is unresponsive. Pupils are round 3- 4 mm in size nonreactive. No corneal. There is some occasional gag reflex and the patient has a breathing reflex for the time being. The patient is normally flexible sigmoidoscopy in all 4 extremities. No facial asymmetry. No Babinski. No clonus. Twitching of the head is noted. Results - Laboratory Findings CBC and BMP: 04/04/19 08:30 04/04/19 08:30 ABG ABG pH <7.00 (7.35-7.45) L* 04/04/19 09:02 ABG pCO2 44 mmHg (35-45) 04/04/19 09:02 ABG pO2 88 mmHg (83-108) 04/04/19 09:02 ABG O2 Saturation 93.7 % (94-97) L 04/04/19 09:02 PT/INR, D-dimer PT 28.1 sec (9.0-12.0) H 04/04/19 09:00 INR 2.9 (<1.2) H 04/04/19 09:00 Abnormal lab findings: Abnormal Labs 04/04/19 04/04/19 04/04/19 04:53 05:15 05:15 WBC 19.0 H MCHC 30.1 L Plt Count Neutrophils # (Manual) 13.40 H Lymphocytes # (Manual) Metamyelocytes # (Man) Myelocytes # (Manual) PT INR APTT ABG pH ABG pCO2 ABG pO2 ABG HCO3 ABG Total CO2 ABG O2 Saturation Potassium 7.9 H* Carbon Dioxide 13 L Creatinine 2.72 H Glucose 54 L POC Glucose (mg/dL) Plasma Lactic Acid Keshav Calcium 7.7 L AST 4677 H ALT 4768 H Troponin I Total Protein 5.6 L Albumin Amylase 199 H Lipase 684 H Urine Methadone Screen Detected H 04/04/19 04/04/1904/04/19 05:15 05:15 05:35 WBC MCHC Plt Count Neutrophils # (Manual) Lymphocytes # (Manual) Metamyelocytes # (Man) Myelocytes # (Manual) PT INR APTT ABG pH <7.00 L* ABG pCO2 60 H ABG pO2 323 H ABG HCO3 12 L ABG Total CO2 14 L ABG O2 Saturation 98.9 H Potassium Carbon Dioxide Creatinine Glucose POC Glucose (mg/dL) Plasma Lactic Acid Keshav 12.6 H* Calcium AST ALT Troponin I 0.153 H* Total Protein Albumin Amylase Lipase Urine Methadone Screen 04/04/19 04/04/19 04/04/19 05:42 08:30 08:30 WBC 23.4 H MCHC 29.7 L Plt Count 82 L Neutrophils # (Manual) 17.30 H Lymphocytes # (Manual) 5.38 H Metamyelocytes # (Man) 0.47 H Myelocytes # (Manual) 0.23 H PT INR APTT ABG pH ABG pCO2 ABG pO2 ABG HCO3 ABG Total CO2 ABG O2 Saturation Potassium 6.6 H* Carbon Dioxide 14 L Creatinine 2.79 H Glucose 110 H POC Glucose (mg/dL) 47 L Plasma Lactic Acid Keshav Calcium 7.3 L AST 8613 H ALT 8246 H Troponin I Total Protein 5.4 L Albumin 3.3 L Amylase Lipase Urine Methadone Screen 04/04/19 04/04/19 04/04/19 08:30 08:36 09:00 WBC MCHC Plt Count Neutrophils # (Manual) Lymphocytes # (Manual) Metamyelocytes # (Man) Myelocytes # (Manual) PT 28.1 H INR 2.9 H APTT 60.0 H ABG pH ABG pCO2 ABG pO2 ABG HCO3 ABG Total CO2 ABG O2 Saturation Potassium Carbon Dioxide Creatinine Glucose POC Glucose (mg/dL) 112 H Plasma Lactic Acid Keshav 11.1 H* Calcium AST ALT Troponin I Total Protein Albumin Amylase Lipase Urine Methadone Screen 04/04/19 04/04/19 09:00 09:02 WBC MCHC Plt Count Neutrophils # (Manual) Lymphocytes # (Manual) Metamyelocytes # (Man) Myelocytes # (Manual) PT INR APTT ABG pH <7.00 L* ABG pCO2 ABG pO2 ABG HCO3 10 L* ABG Total CO2 12 L ABG O2 Saturation 93.7 L Potassium Carbon Dioxide Creatinine Glucose POC Glucose (mg/dL) Plasma Lactic Acid Keshav Calcium AST ALT Troponin I 1.430 H* Total Protein Albumin Amylase Lipase Urine Methadone Screen - Diagnostic Findings Chest x-ray: image reviewed Assessment and Plan Plan: 1 acute cardiac pulmonary arrest, probably the patient had an initial respiratory distress/hypotension with subsequent cardiac arrest based on his history of drug use specially in the form of opiate/methadone. The patient seems to have a prolonged downtime, the exact timing is not clear to me at this point in time and underwent to review the EMS run sheet to establish this information. However, based on his presentation and based on his severe metabolic acidosis and lactic acidosis and shock state and multisystem organ failure, anticipate a prolonged downtime in this patient. 2 comatose state secondary to above 3 myoclonic jerks , likely secondary to prolonged downtime and hypoxic encephalopathy 4 acute hypoxic respiratory failure secondary to above. The patient has asymme tric pulmonary edema versus aspiration pneumonia involving the right currently intubated on mechanical ventilator 5 acute shock, likely cardiogenic in nature. There may be also the possibility of a vasodilatory shock. The patient is on high-dose pressors. The patient will be resuscitated aggressively with IV fluids . Stat echocardiogram is still pending. 6 severe lactic acidosis 7 acute kidney injury 8 acute hyperkalemia secondary to above 9 elevated troponin secondary to cardiac arrest and CPR 10 history of substance abuse 11 shock liver 12 episodic hypoglycemia, likely secondary to above Plan Continue vent support. We'll give the patient to have some bicarb stat as the p atient is severely acidotic with a pH of 6.9. We'll put him on a bicarb infusion with 3 ampules of sodium bicarbonate and D5 water at the rate of 150 mL an hour. We'll give him at least an additional 2 L of IV fluids. Obtain a stat echocardiogram. Start the patient on vasopressin physiologic dose 0.03 units and continue high-dose norepinephrine infusion with the possibility of switching to epinephrine if he continues to be hypotensive. An outlying catheter was inserted for hemodynamic monitoring. Continue vent support. Currently is in a rate of 26 with a tidal volume of 600. We'll wean down the FiO2 as tolerated. We'll cover the patient empirically with IV Zosyn. Repeat blood gases will be obtained within next hour or so. Obtain a stat echocardiogram to assess LV function. Obtain a stat EEG. Neurology consultation. Prognosis poor baseline above-mentioned comorbidities. We'll continue to follow make further recommendations based on his progress. This is a critically care evaluation was done and more than 30 minutes. Family updated on his condition. Time with Patient: Greater than 30
[2019-04-04] MEDS: EMPTY BAG 1 BAG with PROPOFOL 1,000 MG IV SCH ×2 (11:11→17:28)
[2019-04-04] MEDS: SODIUM CHLORIDE 0.9% 50 ML with VASOPRESSIN 20 UNIT IVPB SCH ×4 (11:24→17:29)
[2019-04-04 12:17] LABS: Glucose,Whole Blood 64 mg/dL (75-99)
[2019-04-04 12:29] LABS: Glucose,Whole Blood 116 mg/dL (75-99)
[2019-04-04] MEDS: WATER FOR INJECTION, STERILE 1,000 ML with SODIUM ACETATE 150 MEQ IV SCH ×4 (12:52→20:02)
[2019-04-04 13:32] LABS: INR 3.7 (<1.2); Partial Thromboplastin Time 60.4 sec (22.0-30.0); Prothrombin Time 35.6 sec (9.0-12.0)
--- NOTE | 2019-04-04 13:49 | P.HPIM ---
History of Present Illness This is a 53 years old male with past medical history of substance abuse, heroin overdose in 2014, previous history of cardiac arrest, IV drug abuse, bipolar and depression, fentanyl overdose. He was recently discharged from hospital about one month ago for fentanyl overdose, and that time he has chest pain and abnormal stress test. However he had a normal cardiac angiogram and his been evaluated by repulping supervisor. Also patient has been evaluated by psychiatrist off found him no need for psychiatrist admission.pt could not provide information and it was taken from staff and medical records as well as the staff at bed side. Patient was brought from [facility] facility for being unresponsive, when his roommate noticed that he was not breathing, and he did cardiopulmonary resuscitation for approximately 5 minutes, then he alerted the staff , who found the patient called, symmetric and pulseless. CPR was re-initia jordan , he got 3 doses of intranasal Narcan with no response. EMS arrived to the scene, patient got intubated, IV access was obtained and blood glucose was 29. D50 was given as well as 3 rounds of epinephrine, eventually patient's circulation returned and patient was transported to the emergency room. On arrival patient was unresponsive, he was intubated, he has some twitching movements in his head, there was no coronary flexor, no gag reflex no Babinski reflex. Right femoral line was placed and family were contacted. Family were at bedside, including mother and brother and grandfather. As per his brother, last time his been seen about 2 weeks ago and he wasn't complaining from medical problems, other than some abdominal hernia and he stated for the last 2 weeks he is been in [place] for rehab. INR 2.9, ABG showing PH less than 7. Oxygen PO2 288 and pCO2 44. His potassium 7.9, creatinine 2.7, glucose 47 after D50 went up to 112, plus the lactic acid 12.6, liver enzymes more than 45,000, troponin 0.15, amylase 199, lipase 684, urine drug screen is positive for methadone . Brain CT: No acute process. Chest x-ray showing right pulmonary edema versus pneumonia per radiologist's report. EKG showing normal sinus rhythm at 74. Patient is already on normal saline at 200 L/h. Past Medical History Past Medical History: Pneumonia Additional Past Medical History / Comment(s): 2013 Heroin overdose/vented and had cardiac arrest-torsades de pointes, possible aspiration pneumonia, multi drug abuse-IVDA History of Any Multi-Drug Resistant Organisms: None Reported Past Surgical History: No Surgical Hx Reported Past Psychological History: Bipolar, Depression Smoking Status: Current every day smoker Past Alcohol Use History: None Reported Past Drug Use History: Heroin - Past Family History Father Family Medical History: COPD Additional Family Medical History / Comment(s): Father is a smoker Mother Family Medical History: No Reported History Additional Family Medical History / Comment(s): Mother is healthy Medications and Allergies Home Medications Medication Instructions Recorded Confirmed Type RX: lamoTRIgine [LaMICtal] 200 mg PO DAILY 10/11/14 04/04/19 History RX: Citalopram Hydrobromide 40 mg PO DAILY 08/19/18 04/04/19 History [CeleXA] Allergies Allergy/AdvReac Type Severity Reaction Status Date / Time No Known Allergies Allergy Verified 04/04/19 08:46 Physical Exam Vitals: Vital Signs Temp Pulse Resp BP Pulse Ox 04/04/19 08:30 98 21 107/84 98 04/04/19 08:00 100 20 100/81 99 04/04/19 07:30 98 21 102/68 99 04/04/19 07:00 93 16 113/76 99 04/04/19 06:58 93 16 112/98 98 04/04/19 06:52 94 16 103/91 98 04/04/19 06:41 95 16 108/54 98 04/04/19 06:31 89 16 85/71 98 04/04/19 06:27 90 16 98/55 98 04/04/19 06:00 78 20 80/55 99 04/04/19 05:25 75 14 63/32 98 04/04/19 04:58 80 20 118/92 97 04/04/19 04:57 14 04/04/19 04:48 74 20 113/70 100 04/04/19 04:45 99.3 F 73 20 112/94 92 L Intake and Output 04/03/19 04/04/19 04/04/19 22:59 06:59 14:59 Intake Total 10.711 Balance 10.1 Intake: Intake, IV Titration 10. Amount Norepinephrine 8 mg In . Sodium Chloride 0.9% 250 ml @ 0.05 MCG/KG/MIN 7. 827 mls/hr IV .Q24H STA Rx#:[id number] Other: Weight 80.9 kg GENERAL: Intubated, unresponsive. HEENT: Pupils are round and fixed. corneal flex and gag reflexes were absent. EOMI. No scleral icterus. No conjunctival pallor. Normocephalic, atraumatic. No pharyngeal erythema. No thyromegaly. He has OG tube with around 100 mL of the drain. CARDIOVASCULAR: S1 and S2 present. No murmurs, rubs, or gallops. PULMONARY: Chest is clear to auscultation, no wheezing or crackles. ABDOMEN: Soft, nontender, nondistended, normoactive bowel sounds. No palpable organomegaly. MUSCULOSKELETAL: No joint swelling or deformity. EXTREMITIES: No cyanosis, clubbing, or pedal edema. NEUROLOGICAL: Patient is unresponsive, difficult to assess motor and sensory system. He has jerking movements of the head which regular, suspicious for myoclonic jerks SKIN: No rashes. Results CBC & Chem 7: 04/04/19 05:15 04/04/19 05:15 Labs: Abnormal Lab Results - Last 24 Hours (Table) 04/04/19 04/04/19 04/04/19 Range/Units 04:53 05:15 05:15 WBC 19.0 H (3.8-10.6) k/uL MCHC 30.1 L (31.0-37.0) g/dL Neutrophils # (Manual) 13.40 H (1.3-7.7) k/uL ABG pH (7.35-7.45) ABG pCO2 (35-45) mmHg ABG pO2 (83-108) mmHg ABG HCO3 (21-25) mmol/L ABG Total CO2 (19-24) mmol/L ABG O2 Saturation (94-97) % Potassium 7.9 H* (3.5-5.1) mmol/L Carbon Dioxide 13 L (22-30) mmol/L Creatinine 2.72 H (0.66-1.25) mg/dL Glucose 54 L (74-99) mg/dL POC Glucose (mg/dL) (75-99) mg/dL Plasma Lactic Acid Keshav (0.7-2.0) mmol/L Calcium 7.7 L (8.4-10.2) mg/dL AST 4677 H (17-59) U/L ALT 4768 H (21-72) U/L Troponin I (0.000-0.034) ng/mL Total Protein 5.6 L (6.3-8.2) g/dL Amylase 199 H (30-110) U/L Lipase 684 H (23-300) U/L Urine Methadone Screen Detected H (NotDetected) 04/04/19 04/04/19 04/04/19 Range/Units 05:15 05:15 05:35 WBC (3.8-10.6) k/uL MCHC (31.0-37.0) g/dL Neutrophils # (Manual) (1.3-7.7) k/uL ABG pH <7.00 L* (7.35-7.45) ABG pCO2 60 H (35-45) mmHg ABG pO2 323 H (83-108) mmHg ABG HCO3 12 L (21-25) mmol/L ABG Total CO2 14 L (19-24) mmol/L ABG O2 Saturation 98.9 H (94-97) % Potassium (3.5-5.1) mmol/L Carbon Dioxide (22-30) mmol/L Creatinine (0.66-1.25) mg/dL Glucose (74-99) mg/dL POC Glucose (mg/dL) (75-99) mg/dL Plasma Lactic Acid Keshav 12.6 H* (0.7-2.0) mmol/L Calcium (8.4-10.2) mg/dL AST (17-59) U/L ALT (21-72) U/L Troponin I 0.153 H* (0.000-0.034) ng/mL Total Protein (6.3-8.2) g/dL Amylase (30-110) U/L Lipase (23-300) U/L Urine Methadone Screen (NotDetected) 04/04/19 04/04/19 Range/Units 05:42 08:36 WBC (3.8-10.6) k/uL MCHC (31.0-37.0) g/dL Neutrophils # (Manual) (1.3-7.7) k/uL ABG pH (7.35-7.45) ABG pCO2 (35-45) mmHg ABG pO2 (83-108) mmHg ABG HCO3 (21-25) mmol/L ABG Total CO2 (19-24) mmol/L ABG O2 Saturation (94-97) % Potassium (3.5-5.1) mmol/L Carbon Dioxide (22-30) mmol/L Creatinine (0.66-1.25) mg/dL Glucose (74-99) mg/dL POC Glucose (mg/dL) 47 L 112 H (75-99) mg/dL Plasma Lactic Acid Keshav (0.7-2.0) mmol/L Calcium (8.4-10.2) mg/dL AST (17-59) U/L ALT (21-72) U/L Troponin I (0.000-0.034) ng/mL Total Protein (6.3-8.2) g/dL Amylase (30-110) U/L Lipase (23-300) U/L Urine Methadone Screen (NotDetected) Assessment and Plan Assessment: Status post cardiopulmonary unresponsiveness with prolonged cardiopulmonary arrest. Status post intubation. Acute respiratory failure secondary to above Acidosis Lactic acidosis Acute renal failure, with hyperkalemia Markedly elevated liver enzymes and INR, suspicious for liver failure Possible myoclonic jerks of the heads Hypoglycemia, and arrival. Corrected Possible pneumonia with leukocytosis Plan: This is a 53 years old male who presents with periods of unresponsiveness, after prolonged cardiac arrest. Patient is going to be admitted to the intensive care unit, pulmonary/critical care team consult. Neurology consult called for assistance of his neurological status, brain function and possible myoclonic jerks. Patient currently intubated and on mechanical ventilation. Continue with supportive care. Monitor glucose and change fluid to D5 normal saline, continue with monitoring sugar and labs.we'll start antibiotics of Zosyn for possible pneumonia with leukocytosis. Labs and medication were reviewed.. Continue same treatment. Continue with symptomatic treatment. Monitor lytes and vitals. DVT and GI prophylaxis. Further recommendations of the clinical course of the patient DVT prophylaxis: No need for anticoagulation for high level of INR GI Prophylaxis: Protonix Prognosis is guarded and very poor Case was discussed with family at bedside, including the mother and brother. they wanted him to be full code for now. They're aware of the poor prognosis of the patient
--- NOTE | 2019-04-04 14:01 | ECHOF ---
Referral Reason:shock MEASUREMENTS -------- HEIGHT: 182.9 cm WEIGHT: 81.6 kg BP: 77/50 RVIDd: 3.7 cm (< 3.3) IVSd: 1.3 cm (0.6 - 1.1) LVIDd: 3.1 cm (3.9 - 5.3) LVPWd: 1.2 cm (0.6 - 1.1) IVSs: 1.5 cm LVIDs: 2.6 cm LVPWs: 1.6 cm LA Diam: 2.7 cm (2.7 - 3.8) Ao Diam: 2.9 cm (2.0 - 3.7) AV Cusp: 2.4 cm (1.5 - 2.6) EPSS: 0.9 cm MV E Jason: 0.92 m/s MV DecT: 198 ms MV A Jason: 0.60 m/s MV E/A Ratio: 1.52 RAP: 15.00 mmHg RVSP: 32.14 mmHg MV EF SLOPE: 79.88 mm/s (70 - 150) MV EXCURSION: 1.73 cm (> 18.000) FINDINGS -------- Sinus rhythm. This was a technically adequate study. The left ventricular size is normal. There is mild concentric left ventricular hypertrophy. Overa ll left ventricular systolic function is mild-moderately impaired with, an EF between 40 - 45 %. Th ere is septal flattening in diastole which is consistent with right ventricular volume overload. The right ventricle is mildly enlarged. The left atrium is normal in size. The right atrium is normal in size and function. Interatrial and interventricular septum intact. The aortic valve is trileaflet and appears structurally normal. Mild tricuspid regurgitation present. Right ventricular systolic pressure is normal at < 35 mmHg. The aortic root size is normal. The inferior vena cava is dilated with no significant inspiratory collapse which is consistent estima jordan right atrial pressure of >15 mmHg. There is no pericardial effusion. CONCLUSIONS -------- 1. Sinus rhythm. 2. This was a technically adequate study. 3. The left ventricular size is normal. 4. There is mild concentric left ventricular hypertrophy. 5. Overall left ventricular systolic function is mild-moderately impaired with, an EF between 40 - 45 %. 6. There is septal flattening in diastole which is consistent with right ventricular volume overload. 7. The right ventricle is mildly enlarged. 8. The left atrium is normal in size. 9. The right atrium is normal in size and function. 10. Interatrial and interventricular septum intact. 11. The aortic valve is trileaflet and appears structurally normal. 12. Mild tricuspid regurgitation present. 13. Right ventricular systolic pressure is normal at < 35 mmHg. 14. The aortic root size is normal. 15. The inferior vena cava is dilated with no significant inspiratory collapse which is consistent es timated right atrial pressure of >15 mmHg. 16. There is no pericardial effusion. ROUTER OPERATOR PIN: [email or web address]
--- NOTE | 2019-04-04 14:12 | P.CNNES ---
History of Present Illness Consult date: 04/04/19 Reason for Consult: Cardiac arrest History of Present Illness: Patient is a 33-year-old male with history of substance abuse, who was in a rehab facility, when EMS was called for an unresponsive resident. Per report from the roommate, patient seemed to be sleepy and that the roommate noticed that he was no longer breathing and started CPR. He continued CPR for about 5 minutes before asking for help. When EMS arrived, patient was cold, cyanotic and pulseless. They began CPR, administered 3 doses of intranasal Narcan with no response. Patient was intubated with 7.5 tube, was found to have blood glucose of 29, was given D50. There was return of spontaneous circulation and was transported to emergency room. EMS flow sheet not available in the chart, therefore exact downtime unavailable, but appears somewhat prolonged as per description as above. Patient is currently in ICU, intubated on mechanical ventilation. Patient is unresponsive. He was having some myoclonic jerks for which he was started on propofol 20 g, which abolished the myoclonic jerks. He is also on Levophed 80 g and vasopressin. There is no urine output. At present there is no seizure activity noted. Patient had computed tomography scan of the head, which was reported as normal, although on my review, there appears to have loss of nicholson-white junction in bilateral parietal and occipital lobes, suggestive of early cerebral edema. Chest x-ray showed asymmetrical right pulmonary edema versus pneumonia. EKG showed normal sinus rhythm. Blood test shows WBC 23.4 hemoglobin 15.6 and platelets are 82. Patient's sodium is 141 potassium 6.6, BUN 18 creatinine 2.79. AST is 8613 6, ALT also elevated 8246. Troponin is 1.4. Urine drug screen is positive for methadone. Review of Systems ROS unobtainable: due to endotracheal tube, due to mental status Past Medical History Past Medical History: Pneumonia Additional Past Medical History / Comment(s): 2013 Heroin overdose/vented and had cardiac arrest-torsades de pointes, possible aspiration pneumonia, multi drug abuse-IVDA History of Any Multi-Drug Resistant Organisms: None Reported Past Surgical History: No Surgical Hx Reported Past Psychological History: Bipolar, Depression Smoking Status: Current every day smoker Past Alcohol Use History: None Reported Past Drug Use History: Heroin - Past Family History Father Family Medical History: COPD Additional Family Medical History / Comment(s): Father is a smoker Mother Family Medical History: No Reported History Additional Family Medical History / Comment(s): Mother is healthy Medications and Allergies Home Medications Medication Instructions Recorded Confirmed Type lamoTRIgine [LaMICtal] 200 mg PO DAILY 10/11/14 04/04/19 History Citalopram Hydrobromide [CeleXA] 40 mg PO DAILY 08/19/18 04/04/19 History Allergies Allergy/AdvReac Type Severity Reaction Status Date / Time No Known Allergies Allergy Verified 04/04/19 08:46 Physical Examination - Vital Signs Vital Signs: Vital Signs Temp Pulse Pulse Resp BP BP Pulse Ox 04/04/19 13:30 107 H 26 H 76/32 04/04/19 13:15 105 H 26 H 106/34 04/04/19 13:00 107 H 26 H 88/65 100 04/04/19 12:45 107 H 26 H 96/47 04/04/19 12:30 105 H 26 H 113/32 04/04/19 12:15 105 H 26 H 107/61 04/04/19 12:00 97.8 F 105 H 26 H 54/39 100 04/04/19 11:45 104 H 26 H 81/48 04/04/19 11:30 105 H 18 102/87 04/04/19 11:15 108 H 26 H 81/54 04/04/19 11:00 107 H 26 H 75/64 98 04/04/19 10:45 106 H 26 H 85/58 04/04/19 10:30 107 H 26 H 04/04/19 10:15 108 H 28 H 85/70 04/04/19 10:00 108 H 31 H 95/66 98 04/04/19 09:45 109 H 25 H 95/66 98 04/04/19 09:30 97.7 F 114 H 26 H 88/70 04/04/19 09:05 98.0 F 103 H 21 102/58 98 04/04/19 08:30 98 21 107/84 98 04/04/19 08:00 100 20 100/81 99 04/04/19 07:30 98 21 102/68 99 04/04/19 07:00 93 16 113/76 99 04/04/19 06:58 93 16 112/98 98 04/04/19 06:52 94 16 103/91 98 04/04/19 06:41 95 16 108/54 98 04/04/19 06:31 89 16 85/71 98 04/04/19 06:27 90 16 98/55 98 04/04/19 06:00 78 20 80/55 99 04/04/19 05:25 75 14 63/32 98 04/04/19 04:58 80 20 118/92 97 04/04/19 04:57 14 04/04/19 04:48 74 20 113/70 100 04/04/19 04:45 99.3 F 73 20 112/94 92 L Intake and Output 04/03/19 04/04/19 04/04/19 22:59 06:59 14:59 Intake Total 10.711 1160.077 Output Total 40 Balance 10.711 1120.077 Intake: Intake, IV Titration 10.711 1160.077 Amount Dextrose 5%-0.9% NaCl 1, 400 000 ml @ 200 mls/hr IV . Q5H MATT Rx#:[id number] Empty Bag 1 bag @ 30 MCG/ 19.2 KG/MIN 14.562 mls/hr IV . Q6H53M MATT with Propofol 1,000 mg Rx#:[id number] Norepinephrine 32 mg In 78.877 Sodium Chloride 0.9% 218 ml @ 0.05 MCG/KG/MIN 1. 896 mls/hr IV .Q24H MATT Rx#:[id number] Norepinephrine 8 mg In 10.711 Sodium Chloride 0.9% 250 ml @ 0.05 MCG/KG/MIN 7. 827 mls/hr IV .Q24H STA Rx#:[id number] Piperacillin-Tazobactam 3 100 .375 gm In Sodium Chloride 0.9% 100 ml @ 25 mls/hr IVPB Q8HR MATT Rx# :[id number] Sodium Chloride 0.9% 1, 400 000 ml @ 200 mls/hr IV . Q5H MATT Rx#:[id number] Sodium Chloride 0.9% 50 12.0 ml @ 0.03 UNITS/MIN 4.59 mls/hr IVPB .Q11H7M MATT with Vasopressin 20 unit Rx#:[id number] Water For Injection, 150 Sterile 1,000 ml @ 150 mls/hr IV .Q7H10M MATT with Sodium Acetate 150 meq Rx#:[id number] Output: Urine 40 Other: Voiding Method Indwelling Catheter # Bowel Movements 1 Weight 80.9 kg ABP, PAP, CO, CI - Last 8 Hours Arterial Blood Pressure 89/51 Arterial Blood Pressure 85/54 Arterial Blood Pressure 92/54 Arterial Blood Pressure 83/50 Arterial Blood Pressure 80/51 Arterial Blood Pressure 71/47 Arterial Blood Pressure 81/54 Arterial Blood Pressure 71/38 Arterial Blood Pressure 86/55 Arterial Blood Pressure 90/54 Arterial Blood Pressure 88/56 On examination patient is a young male, who is comatose, not responding to any painful stimulus. He is intubated on mechanical ventilation. Patient is not clearly breathing over the ventilation at a set rate of 26. Patient's pupils are about 3-4 mm, not clearly reacting. Oculocephalics are absent, corneals absent. No response to painful stimulus reflexes are absent. Some mottling noted in the palms of the hand. Reflexes are absent, plantars are flat. Results - Laboratory Findings CBC and BMP: 04/04/19 08:30 04/04/19 08:30 Abnormal Lab Findings: Abnormal Labs 04/04/19 04/04/19 04/04/19 04:53 05:15 05:15 WBC 19.0 H MCHC 30.1 L Plt Count Neutrophils # (Manual) 13.40 H Lymphocytes # (Manual) Metamyelocytes # (Man) Myelocytes # (Manual) PT INR APTT ABG pH ABG pCO2 ABG pO2 ABG HCO3 ABG Total CO2 ABG O2 Saturation Potassium 7.9 H* Carbon Dioxide 13 L Creatinine 2.72 H Glucose 54 L POC Glucose (mg/dL) Plasma Lactic Acid Keshav Calcium 7.7 L AST 4677 H ALT 4768 H Troponin I Total Protein 5.6 L Albumin Amylase 199 H Lipase 684 H Urine Methadone Screen Detected H 04/04/19 04/04/19 04/04/19 05:15 05:15 05:35 WBC MCHC Plt Count Neutrophils # (Manual) Lymphocytes # (Manual) Metamyelocytes # (Man) Myelocytes # (Manual) PT INR APTT ABG pH <7.00 L* ABG pCO2 60 H ABG pO2 323 H ABG HCO3 12 L ABG Total CO2 14 L ABG O2 Saturation 98.9 H Potassium Carbon Dioxide Creatinine Glucose POC Glucose (mg/dL) Plasma Lactic Acid Keshav 12.6 H* Calcium AST ALT Troponin I 0.153 H* Total Protein Albumin Amylase Lipase Urine Methadone Screen 04/04/19 04/04/19 04/04/19 05:42 08:30 08:30 WBC 23.4 H MCHC 29.7 L Plt Count 82 L Neutrophils # (Manual) 17.30 H Lymphocytes # (Manual) 5.38 H Metamyelocytes # (Man) 0.47 H Myelocytes # (Manual) 0.23 H PT INR APTT ABG pH ABG pCO2 ABG pO2 ABG HCO3 ABG Total CO2 ABG O2 Saturation Potassium 6.6 H* Carbon Dioxide 14 L Creatinine 2.79 H Glucose 110 H POC Glucose (mg/dL) 47 L Plasma Lactic Acid Keshav Calcium 7.3 L AST 8613 H ALT 8246 H Troponin I Total Protein 5.4 L Albumin 3.3 L Amylase Lipase Urine Methadone Screen 04/04/19 04/04/19 04/04/19 08:30 08:36 09:00 WBC MCHC Plt Count Neutrophils # (Manual) Lymphocytes # (Manual) Metamyelocytes # (Man) Myelocytes # (Manual) PT 28.1 H INR 2.9 H APTT 60.0 H ABG pH ABG pCO2 ABG pO2 ABG HCO3 ABG Total CO2 ABG O2 Saturation Potassium Carbon Dioxide Creatinine Glucose POC Glucose (mg/dL) 112 H Plasma Lactic Acid Keshav 11.1 H* Calcium AST ALT Troponin I Total Protein Albumin Amylase Lipase Urine Methadone Screen 04/04/19 04/04/19 04/04/19 09:00 09:02 10:48 WBC MCHC Plt Count Neutrophils # (Manual) Lymphocytes # (Manual) Metamyelocytes # (Man) Myelocytes # (Manual) PT INR APTT ABG pH <7.00 L* <7.00 L* ABG pCO2 ABG pO2 ABG HCO3 10 L* 8 L* ABG Total CO2 12 L 10 L ABG O2 Saturation 93.7 L Potassium Carbon Dioxide Creatinine Glucose POC Glucose (mg/dL) Plasma Lactic Acid Keshav Calcium AST ALT Troponin I 1.430 H* Total Protein Albumin Amylase Lipase Urine Methadone Screen 04/04/19 04/04/19 04/04/19 11:58 12:28 12:45 WBC MCHC Plt Count Neutrophils # (Manual) Lymphocytes # (Manual) Metamyelocytes # (Man) Myelocytes # (Manual) PT INR APTT ABG pH ABG pCO2 ABG pO2 ABG HCO3 ABG Total CO2 ABG O2 Saturation Potassium Carbon Dioxide Creatinine Glucose POC Glucose (mg/dL) 64 L 116 H Plasma Lactic Acid Keshav 13.7 H* Calcium AST ALT Troponin I Total Protein Albumin Amylase Lipase Urine Methadone Screen 04/04/19 12:45 WBC MCHC Plt Count Neutrophils # (Manual) Lymphocytes # (Manual) Metamyelocytes # (Man) Myelocytes # (Manual) PT 35.6 H INR 3.7 H APTT 60.4 H ABG pH ABG pCO2 ABG pO2 ABG HCO3 ABG Total CO2 ABG O2 Saturation Potassium Carbon Dioxide Creatinine Glucose POC Glucose (mg/dL) Plasma Lactic Acid Keshav Calcium AST ALT Troponin I Total Protein Albumin Amylase Lipase Urine Methadone Screen Assessment and Plan Assessment: * Cardiac arrest, with what appears to be a possible prolonged downtime. * Patient with severe anoxic encephalopathy. * Probable drug overdose. * History of substance abuse, currently was in rehabilitation. * Previous history of cardiac arrest in 2013 * Multiorgan failure, with acute kidney injury, elevated liver enzymes, elevated troponins. Plan: * Overall prognosis appears poor based upon the extent of the possible downtime and evidence of multiorgan dysfunction. * Patient to undergo EEG to evaluate for brain activity, rule out status. * Discussed with patient's family in detail. * Your medical management. * We will follow. Time with Patient: Greater than 30
[2019-04-04 15:47] LABS: Glucose,Whole Blood 128 mg/dL (75-99)
--- NOTE | 2019-04-04 16:50 | EEG ---
ELECTROENCEPHALOGRAM REPORT DATE OF SERVICE: 04/04/2019. PREAMBLE: This is a 33-year-old male with cardiac arrest. This study is performed to evaluate for encephalopathy and rule out any epileptiform activity. EEG FINDINGS: A routine 21 channel awake digital EEG recording was accomplished utilizing 10- 20 international system with bipolar and referential montages. The background consists of poorly developed, poorly regulated, severely suppressed very low amplitude activity in the 2-3 hertz delta, with some isoelectric appearing flat EEG. Background does not seem to be reactive to eye opening and closing. Different stages of sleep were not seen. No epileptiform activity was seen. IMPRESSION: This is a severely abnormal EEG due to the background slowing, and background suppression, which at times appears almost isoelectric. This is suggestive of generalized cerebral dysfunction, related to the patient's history of cardiac arrest and anoxic encephalopathy. No epileptiform activity was seen. MMKIAL / MADDISONN: [id number] / MTDD
[2019-04-04 17:05] LABS: INR 3.7 (<1.2); Partial Thromboplastin Time 53.4 sec (22.0-30.0); Prothrombin Time 35.9 sec (9.0-12.0)
[2019-04-04 17:08] LABS: ABG PCO2 26 mmHg (35-45); ABG PO2 186 mmHg (83-108)
[2019-04-04 17:09] LABS: ABG Base Excess 21.8 mmol/L; ABG Oxygen Saturation 98.7 % (94-97); ABG TCO2 9 mmol/L (19-24)
[2019-04-04 17:16] VITALS: BMI 27.1
[2019-04-04 17:18] LABS: Albumin 3.2 g/dL (3.5-5.0); Alkaline Phosphatase 137 U/L (38-126); Anion Gap 27 mmol/L; Blood Urea Nitrogen 22 mg/dL (9-20); Chloride 106 mmol/L (98-107); Glucose 123 mg/dL (74-99); Sodium 141 mmol/L (137-145); Total Bilirubin 2.5 mg/dL (0.2-1.3); Total Protein 5.4 g/dL (6.3-8.2)
[2019-04-04 17:47] LABS: AST >15000 U/L (17-59)
[2019-04-04 17:48] LABS: ALT >10000 U/L (21-72)
[2019-04-04 17:50] LABS: Calcium 6.4 mg/dL (8.4-10.2); Carbon Dioxide 8 mmol/L (22-30)
--- NOTE | 2019-04-04 17:56 | PCN ---
PROCEDURE NOTE ARTERIAL LINE PLACEMENT: Indications: Hemodynamic monitoring. PREOP DIAGNOSIS: Cardiac arrest. POSTOP DIAGNOSIS: Cardiac arrest. A time-out was completed verifying correct patient, procedure, site, positioning, and implant(s) or special equipment if applicable. Pelon's test was performed to ensure adequate perfusion. The patient's right groin was prepped and draped in sterile fashion. 1% Lidocaine was used to anesthetize the area. An 18G Arrow arterial line was introduced into the femoral artery. The catheter was threaded over the guide wire and the needle was removed with appropriate pulsatile blood return. Blood loss was minimal. The catheter was then sutured in place to the skin and a sterile dressing applied. Perfusion to the extremity distal to the point of catheter insertion was checked and found to be adequate. The patient tolerated the procedure well and there were no complications. THANIA / MADDISONN: [id number] /
[2019-04-04 19:58] LABS: Glucose,Whole Blood 80 mg/dL (75-99)
[2019-04-04 19:58] LABS: Glucose,Whole Blood 189 mg/dL (75-99)
[2019-04-04 22:34] LABS: ABG Base Excess -16.1 mmol/L; ABG HCO3 11 mmol/L (21-25); ABG Oxygen Saturation 98.4 % (94-97); ABG PCO2 27 mmHg (35-45); ABG PH 7.23 (7.35-7.45); ABG PO2 158 mmHg (83-108); ABG TCO2 12 mmol/L (19-24)
[2019-04-04 23:01] LABS: Albumin 3.3 g/dL (3.5-5.0); Alkaline Phosphatase 121 U/L (38-126); Anion Gap 26 mmol/L; Blood Urea Nitrogen 28 mg/dL (9-20); Carbon Dioxide 14 mmol/L (22-30); Chloride 102 mmol/L (98-107); Glucose 111 mg/dL (74-99); Sodium 142 mmol/L (137-145); Total Bilirubin 4.1 mg/dL (0.2-1.3); Total Protein 5.4 g/dL (6.3-8.2)
[2019-04-04 23:22] LABS: Potassium 6.1 mmol/L (3.5-5.1)
[2019-04-04 23:23] LABS: Calcium 6.3 mg/dL (8.4-10.2)
[2019-04-04 23:28] LABS: ALT >10000 U/L (21-72)
[2019-04-04 23:34] LABS: AST >15000 U/L (17-59)
[2019-04-05] MEDS ORDERED: SODIUM POLYSTYRENE SULFONATE 15 GM/60 ML BOTTLE PO STA
[2019-04-05] MEDS: PROPOFOL 1,000 MG in EMPTY BAG 1 BAG IV SCH ×4 (00:38→20:39)
[2019-04-05] MEDS: NOREPINEPHRINE 32 MG in SODIUM CHLORIDE 0.9% 218 ML IV SCH ×2 (00:39→10:10)
[2019-04-05] MEDS: SODIUM CHLORIDE 0.9% 50 ML with VASOPRESSIN 20 UNIT IVPB SCH ×6 (00:39→21:51)
[2019-04-05] MEDS: WATER FOR INJECTION, STERILE 1,000 ML with SODIUM ACETATE 150 MEQ IV SCH ×6 (02:59→17:30)
[2019-04-05 04:43] LABS: HCT 49.7 % (39.0-53.0); HGB 15.4 gm/dL (13.0-17.5); Hypochromasia Marked; MCH 28.5 pg (25.0-35.0); Mean Platelet Volume 9.6; RDW 15.5 % (11.5-15.5); WBC 32.7 k/uL (3.8-10.6)
[2019-04-05 04:48] LABS: Platelet Count 68 k/uL (150-450)
[2019-04-05 05:07] LABS: Band Neutrophils % 15 %; Lymphocytes # (M) 1.31 k/uL (1.0-4.8); Neutrophils % (M) 81 %; Nucleated Red Blood Cells 0 /100 WBC (0-0); Total Cells Counted 100
[2019-04-05 05:08] LABS: ABG Base Excess -13.4 mmol/L; ABG HCO3 14 mmol/L (21-25); ABG Oxygen Saturation 94.6 % (94-97); ABG PCO2 30 mmHg (35-45); ABG PH 7.26 (7.35-7.45); ABG PO2 86 mmHg (83-108); ABG TCO2 15 mmol/L (19-24)
[2019-04-05 05:33] LABS: Glucose,Whole Blood 37 mg/dL (75-99)
[2019-04-05 05:33] LABS: Glucose,Whole Blood 37 mg/dL (75-99)
[2019-04-05] MEDS: DEXTROSE 50% SYRINGE 50 ML IVP STA (05:46)
[2019-04-05 05:58] LABS: Glucose,Whole Blood 106 mg/dL (75-99)
[2019-04-05 06:17] LABS: Albumin 2.5 g/dL (3.5-5.0); Alkaline Phosphatase 130 U/L (38-126); Anion Gap 25 mmol/L; Blood Urea Nitrogen 34 mg/dL (9-20); Carbon Dioxide 14 mmol/L (22-30); Chloride 100 mmol/L (98-107); Glucose 103 mg/dL (74-99); Magnesium 2.8 mg/dL (1.6-2.3); Phosphorus 8.5 mg/dL (2.5-4.5); Sodium 139 mmol/L (137-145); Total Protein 4.4 g/dL (6.3-8.2)
[2019-04-05 06:27] LABS: Potassium 6.3 mmol/L (3.5-5.1)
[2019-04-05 06:28] LABS: Calcium 5.8 mg/dL (8.4-10.2)
[2019-04-05 06:31] LABS: ALT >10000 U/L (21-72); AST >15000 U/L (17-59)
[2019-04-05 06:33] LABS: INR 4.4 (<1.2); Partial Thromboplastin Time 53.1 sec (22.0-30.0); Prothrombin Time 42.8 sec (9.0-12.0)
[2019-04-05 07:59] LABS: Glucose,Whole Blood 68 mg/dL (75-99)
[2019-04-05] MEDS ORDERED: DEXTROSE 50% SYRINGE 50 ML IVP STA ×5 (07:59→20:53)
[2019-04-05] MEDS: PANTOPRAZOLE 40 MG/10 ML VIAL IVP SCH (08:04)
[2019-04-05] MEDS: PIPERACILLIN-TAZOBACTAM 3.375 GM in SODIUM CHLORIDE 0.9% 100 ML IVPB SCH ×2 (08:04→15:44)
[2019-04-05] MEDS: CHLORHEXIDINE GLUCONATE 15 ML CUP MUCOUS MEM SCH ×2 (08:04→20:20)
[2019-04-05 08:20] LABS: Glucose,Whole Blood 136 mg/dL (75-99)
[2019-04-05 08:41] LABS: ABG PH <7.00 (7.35-7.45)
--- NOTE | 2019-04-05 08:41 | XR ---
EXAMINATION TYPE: XR chest 1V DATE OF EXAM: 04/05/2019 COMPARISON: 04/04/2019 HISTORY: Ventilatory dependent respiratory failure TECHNIQUE: Single frontal view of the chest is obtained. FINDINGS: Enteric tube and endotracheal tube again appear appropriately placed. In addition to the w orsening right infrahilar airspace disease there is new retrocardiac airspace disease and obscuration of the left hemidiaphragm and costophrenic angle. Osseous structures are grossly intact. IMPRESSION: Worsening right basilar airspace disease, development of a trace left pleural effusion, and development of a left basilar consolidation. Multifocal pneumonia should be considered.
[2019-04-05 08:48] LABS: ABG HCO3 8 mmol/L (21-25); ABG PH 7.09 (7.35-7.45)
[2019-04-05] MEDS ORDERED: INSULIN REGULAR 100 UNIT/ML VIAL IV ONE ×2 (09:43→20:53)
[2019-04-05] MEDS ORDERED: FUROSEMIDE 10 MG/ML 10 ML VIAL IV STA (09:43)
[2019-04-05] MEDS ORDERED: SODIUM BICARB 8.4% 50 ML SYR (1 MEQ/ML) IV STA ×2 (09:44→20:52)
[2019-04-05] MEDS ORDERED: CALCIUM GLUCONATE 1 GM in SODIUM CHLORIDE 0.9% 100 ML IVPB ONE ×3 (10:32)
[2019-04-05 10:34] LABS: ABG Base Excess -5.4 mmol/L; ABG HCO3 20 mmol/L (21-25); ABG Oxygen Saturation 96.8 % (94-97); ABG PCO2 32 mmHg (35-45); ABG PO2 95 mmHg (83-108); ABG TCO2 21 mmol/L (19-24)
--- NOTE | 2019-04-05 10:35 | P.NPCON ---
History of Present Illness - Reason for Consult acute renal failure, hyperkalemia - History of Present Illness Reason for consultation: Acute kidney injury and hyperkalemia History of present illness: Patient is a 33-year-old male seen in renal consultation for acute kidney injury and hyperkalemia. Patient was brought to the hospital by the EMS after he had a cardiac arrest. It appears the patient's down time was near 29 minutes. He was noted to be in asystole. Patient's potassium level was 7 on admission and is 6.3 as of this morning. Bicarb level was 8 and is up to 14 at this time. He is maintained on bicarb drip at 150 mL an hour. He is currently intubated and sedated. He is on 50 mics of Levophed and also maximum dose of vasopressin. Most recent blood pressure is 105/44. Patient is oliguric. Patient's baseline creatinine is 1 and is up to 5.01 today. Patient's mother is present at bedside. Neurology has been consulted. Vital signs: Patient is hypotensive maintained on vasopressors. General: The patient appeared well nourished and normally developed. HEENT: Head exam is unremarkable. Neck is without jugular venous distension. Intubated. LUNGS: Breath sounds decreased. HEART: Rate and Rhythm are regular. First and second heart sounds normal. No murmurs, rubs or gallops. ABDOMEN: Abdominal exam reveals normal bowel sounds. Non-tender and non- distended. EXTREMITITES: No clubbing, cyanosis, or edema. Past Medical History Past Medical History: Pneumonia Additional Past Medical History / Comment(s): 2013 Heroin overdose/vented and had cardiac arrest-torsades de pointes, possible aspiration pneumonia, multi drug abuse-IVDA History of Any Multi-Drug Resistant Organisms: None Reported Past Surgical History: No Surgical Hx Reported Past Psychological History: Bipolar, Depression Smoking Status: Current every day smoker Past Alcohol Use History: None Reported Past Drug Use History: Heroin - Past Family History Father Family Medical History: COPD Additional Family Medical History / Comment(s): Father is a smoker Mother Family Medical History: No Reported History Additional Family Medical History / Comment(s): Mother is healthy Medications and Allergies Home Medications Medication Instructions Recorded Confirmed Type lamoTRIgine [LaMICtal] 200 mg PO DAILY 10/11/14 04/04/19 History Citalopram Hydrobromide [CeleXA] 40 mg PO DAILY 08/19/18 04/04/19 History Allergies Allergy/AdvReac Type Severity Reaction Status Date / Time No Known Allergies Allergy Verified 04/04/19 08:46 Physical Exam Vitals: Vital Signs Temp Pulse Pulse Resp BP Pulse Ox 04/05/19 09:15 121 H 26 H 105/44 04/05/19 09:00 122 H 26 H 101/46 95 04/05/19 08:45 123 H 26 H 107/44 04/05/19 08:30 126 H 26 H 115/43 95 04/05/19 08:15 128 H 26 H 113/44 04/05/19 08:00 99.9 F H 128 H 26 H 112/45 97 04/05/19 07:45 128 H 26 H 106/44 04/05/19 07:30 126 H 26 H 114/41 04/05/19 07:15 126 H 13 109/44 04/05/19 07:00 126 H 12 115/41 96 04/05/19 06:45 125 H 18 111/44 04/05/19 06:30 125 H 15 114/46 04/05/19 06:15 125 H 11 L 108/41 04/05/19 06:00 99.8 F H 125 H 26 H 114/44 95 04/05/19 05:45 125 H 27 H 111/40 04/05/19 05:30 128 H 27 H 113/50 04/05/19 05:15 125 H 26 H 103/37 04/05/19 05:00 126 H 26 H 106/43 95 04/05/19 04:45 126 H 26 H 107/45 04/05/19 04:30 126 H 30 H 105/49 04/05/19 04:15 126 H 29 H 107/46 04/05/19 04:00 100.2 F H 125 H 26 H 106/51 94 L 04/05/19 03:58 114 H 04/05/19 03:45 124 H 28 H 101/55 04/05/19 03:30 125 H 27 H 109/55 04/05/19 03:15 125 H 26 H 111/54 04/05/19 03:00 125 H 26 H 113/57 95 04/05/19 02:45 124 H 26 H 121/52 04/05/19 02:30 124 H 26 H 117/58 04/05/19 02:15 124 H 26 H 122/62 04/05/19 02:00 100.2 F H 124 H 26 H 122/60 96 04/05/19 01:45 123 H 27 H 120/63 04/05/19 01:30 123 H 26 H 118/50 04/05/19 01:15 123 H 26 H 117/58 04/05/19 01:01 121 H 27 H 122/58 04/05/19 01:00 122 H 27 H 122/58 95 04/05/19 00:45 100.0 F H 120 H 17 111/48 04/05/19 00:30 120 H 6 L 118/61 04/05/19 00:15 120 H 5 L 119/63 04/05/19 00:00 100.7 F H 120 H 114 H 27 H 127/63 04/04/19 23:45 120 H 11 L 130/67 04/04/19 23:30 101.3 F H 117 H 0 L 116/68 04/04/19 23:15 122 H 26 H 113/63 04/04/19 23:00 123 H 27 H 125/66 95 04/04/19 22:45 124 H 26 H 125/65 04/04/19 22:30 125 H 26 H 130/67 04/04/19 22:15 128 H 26 H 128/69 04/04/19 22:00 129 H 27 H 127/62 04/04/19 21:45 128 H 26 H 124/61 04/04/19 21:30 125 H 26 H 122/67 04/04/19 21:15 124 H 26 H 118/68 04/04/19 21:00 122 H 26 H 127/52 04/04/19 20:45 121 H 25 H 109/72 04/04/19 20:30 118 H 27 H 125/69 04/04/19 20:15 117 H 26 H 111/79 04/04/19 20:00 100.1 F H 116 H 27 H 119/55 97 04/04/19 19:45 116 H 27 H 120/62 04/04/19 19:30 115 H 27 H 122/60 04/04/19 19:15 114 H 26 H 122/51 04/04/19 19:00 114 H 30 H 111/48 99 04/04/19 18:45 114 H 28 H 104/55 04/04/19 18:30 99.3 F 114 H 29 H 109/50 99 04/04/19 18:15 112 H 28 H 99/52 04/04/19 18:00 112 H 30 H 111/75 100 04/04/19 17:45 111 H 87 H 98/84 04/04/19 17:30 111 H 29 H 123/63 04/04/19 17:15 111 H 157 H 118/92 04/04/19 17:00 110 H 43 H 108/64 04/04/19 16:45 110 H 28 H 96/49 04/04/19 16:30 109 H 27 H 90/57 04/04/19 16:15 108 H 27 H 97/58 04/04/19 16:00 97.8 F 109 H 26 H 84/35 100 04/04/19 15:45 106 H 28 H 103/89 04/04/19 15:30 106 H 32 H 106/95 04/04/19 15:15 108 H 23 04/04/19 15:00 108 H 28 H 86/26 99 04/04/19 14:45 107 H 22 109/75 04/04/19 14:30 107 H 27 H 120/78 04/04/19 14:15 107 H 23 111/27 04/04/19 14:00 109 H 20 95/32 100 04/04/19 13:45 108 H 28 H 76/27 04/04/19 13:30 107 H 26 H 76/32 04/04/19 13:15 105 H 26 H 106/34 04/04/19 13:00 107 H 26 H 88/65 100 04/04/19 12:45 107 H 26 H 96/47 04/04/19 12:30 105 H 26 H 113/32 04/04/19 12:15 105 H 26 H 107/61 04/04/19 12:00 97.8 F 105 H 26 H 54/39 100 04/04/19 11:45 104 H 26 H 81/48 04/04/19 11:30 105 H 18 102/87 04/04/19 11:15 108 H 26 H 81/54 04/04/19 11:00 107 H 26 H 75/64 98 04/04/19 10:45 106 H 26 H 85/58 04/04/19 10:30 107 H 26 H Intake and Output 04/04/19 04/05/19 04/05/19 22:59 06:59 14:59 Intake Total 1869.411 6575.761 710.758 Output Total 85 60 15 Balance 0013.404 7676.761 695.758 Intake: IV 459 1424 553 Calcium Gluconate 1 gm In 100 Sodium Chloride 0.9% 100 ml @ 100 mls/hr IVPB ONCE ONE Rx#:[id number] Piperacillin-Tazobactam 3 100 100 .375 gm In Sodium Chloride 0.9% 100 ml @ 25 mls/hr IVPB Q8HR MATT Rx# :[id number] Pressure bag 9 24 3 Water For Injection, 450 1200 450 Sterile 1,000 ml @ 150 mls/hr IV .Q7H10M MATT with Sodium Acetate 150 meq Rx#:[id number] Intake, IV Titration 1257.376 268.761 157.758 Amount Empty Bag 1 bag @ Titrate 67.2 28.8 IV .Q6H53M MATT with Propofol 1,000 mg Rx#: [id number] Norepinephrine 32 mg In 317.376 194.980 119.958 Sodium Chloride 0.9% 218 ml @ 0.05 MCG/KG/MIN 1. 896 mls/hr IV .Q24H MATT Rx#:[id number] Piperacillin-Tazobactam 3 100 .375 gm In Sodium Chloride 0.9% 100 ml @ 25 mls/hr IVPB Q8HR MATT Rx# :[id number] Propofol 1,000 mg In 73.781 Empty Bag 1 bag @ Titrate IV .Q0M MATT Rx#: [id number] Sodium Chloride 0.9% 50 22.8 9.0 ml @ 0.03 UNITS/MIN 4.59 mls/hr IVPB .Q11H7M MATT with Vasopressin 20 unit Rx#:[id number] Water For Injection, 750 Sterile 1,000 ml @ 150 mls/hr IV .Q7H10M MATT with Sodium Acetate 150 meq Rx#:[id number] Output: Urine 85 60 15 Other: Voiding Method Indwelling Catheter Indwelling Catheter Indwelling Catheter # Bowel Movements 1 Weight 88.9 kg Results - Lab Results Most recent lab results ABG pH 7.26 (7.35-7.45) L 04/05/19 04:38 ABG pCO2 30 mmHg (35-45) L 04/05/19 04:38 ABG pO2 86 mmHg (83-108) 04/05/19 04:38 ABG HCO3 14 mmol/L (21-25) L 04/05/19 04:38 ABG O2 Saturation 94.6 % (94-97) 04/05/19 04:38 Calcium 5.8 mg/dL (8.4-10.2) L* 04/05/19 05:37 Phosphorus 8.5 mg/dL (2.5-4.5) H 04/05/19 05:37 Magnesium 2.8 mg/dL (1.6-2.3) H 04/05/19 05:37 04/05/19 04:34 04/05/19 05:37 Assessment and Plan Plan: Assessment: 1. Oliguric acute kidney injury secondary to ischemic ATN secondary to cardiac arrest. Baseline creatinine is 1. It is up to 5.01 today. 2. Hyperkalemia secondary to metabolic acidosis and acute kidney injury. 3. Severe metabolic acidosis secondary to acute kidney injury. Also noted to have very high lactic acid level which is due to chest compressions as well as hypotension. 4. Cardiac arrest. Downtime near 29 minutes. 5. Transaminitis secondary to shock liver. 6. Hypocalcemia secondary to acute kidney injury. Corrected calcium level for albumin is 7.1. Plan: Maintain isotonic sodium bicarbonate drip at 150 mL an hour. 10 units of IV insulin with an amp of D50 and 2 A of bicarb IV push now. Lasix 80 mg IV once now. Repeat potassium level this afternoon. 1 g of IV calcium gluconate now. Neurology consultation. Concern for anoxic encephalopathy. I discussed with the patient's mother present at bedside the need to start renal replacement therapy if no improvement in his renal function and urine output in the next 24 hours. Thank you for the consultation. I will continue to follow the patient with you during his hospital stay.
[2019-04-05 12:00] LABS: Glucose,Whole Blood 113 mg/dL (75-99)
--- NOTE | 2019-04-05 13:15 | CONS ---
CONSULTATION Mr. Balderas is a 33-year-old gentleman who is seen for cardiac evaluation. This patient is currently unresponsive and he is intubated and history obtained from the chart. Discussed the patient's condition with the father. This patient has a past history of opiate abuse. He has past history of cardiac arrest in 2013. The patient was brought to the emergency room by EMS from the [facility] where patient was found unresponsive. CPR was done. A prolonged resuscitation was carried out and subsequently the pulse and blood pressure was obtained. There is no definite prior history of myocardial infarction. Since admission in the hospital, the patient has been intubated. The patient has a severe metabolic and lactic acidosis and abnormal liver enzymes as well as creatinine suggestive of multiorgan failure. The patient currently remains unresponsive. PAST MEDICAL HISTORY: Past medical history includes history of heroin overdose and cardiac arrest, possible aspiration pneumonia. HOME MEDICATIONS: Patient's home medications included Celexa and Lamictal. PHYSICAL EXAMINATION: Physical examination at present reveals a 33-year-old gentleman who is unresponsive. The patient's blood pressure is 89/35 mmHg, heart rate is 107. Patient is afebrile at present. Head, ENT and neck examination is unremarkable. HEART: First and second heart sounds are heard. Lungs are clinically clear to auscultation and percussion. Abdomen is soft. EXTREMITIES: Peripheral pulsations are 1+. EKG shows normal sinus rhythm with incomplete right bundle branch block and wide QRS complex. Initial potassium was 6.1, repeat potassium is 6.3. Lactic acid is 13 and 15. Liver SGOT, SGPT are markedly elevated. Troponin is 1.4. Lipase is 684. Echocardiogram shows evidence of normal LV function with some flattening of the septum suggestive of right ventricular pressure overload. FINAL IMPRESSION: This patient is status post cardiorespiratory arrest. Patient has multiple organ failure with a shock liver, acute renal failure and respiratory failure. Patient's prognosis remains poor. There is no definite evidence of any acute myocardial infarction. Supportive treatment is recommended. Patient's overall prognosis is very poor. MMODL / IJN: [id number] /
--- NOTE | 2019-04-05 13:32 | P.PN ---
Subjective Progress Note Date: 04/05/19 Principal diagnosis: Acute cardiac pulmonary arrest secondary to drug use in the form of opiate/methadone. Ghassan is a 33-year-old gentleman with a history of opiate abuse and a history of cardiac arrest due to torsades in 2013 or 2014. Patient is brought to the ER today via EMS from a [facility] facility where they were dispatched for an unresponsive person. Per the nurse at [place] they were notified by the patient's roommate that the patient seemed to be sleepy and that the roommate noticed that he was no longer breathing and started CPR, room 8 reported that he did CPR for approximately 5 minutes before deciding to go alert staff at which time they responded and found the patient cold, cyanotic and pulseless. They began CPR and also administered 3 doses of intranasal Narcan with no response. EMS reports that they arrived on scene to find the patient cold cyanotic pulseless. CPR was initiated using the Kimo device for continuous compressions, patient was intubated with a 7.5 tube, IV access was obtained and patient was found to have a blood glucose of only 29. In addition to 3 rounds of epinephrine patient was given an amp of D50. Return of spontaneous circulation was obtained and the patient was transported to the emergency department for further evaluation. Currently the patient is in the intensive care unit. He was unable to get hold of the EMS run sheet and I'm not sure of the exact downtime. Nevertheless, based on this presentation, the patient seems to have a prolonged downtime. The patient is currently intubated on a mechanical ventilator. Unresponsive. He is having some myoclonic jerks. Pupils are about 3-4 mm in size, sluggish and nonreactive. No corneal reflex. He has a positive breathing reflex and cough. On and off she jerks and he has some myoclonic activity. He is on a mechanical ventilator. He is in shock and he is on high-dose norepinephrine infusion running at 90 g per minute. His most recent systolic blood pressure was in the mid 90s. Based on that, I inserted an art line catheter for hemodynamic monitoring. Blood gases this point shows a pH of 6.9 with a pCO2 of 35 and a pO2 of 98. This was done and the patient is currently on a VC plus mode with a tidal volume of 600 and the rate of 26 and FiO2 of 80% with a PEEP of 5. The patient is also on D5 normal saline today to 200 mL an hour. Urine output has been only 30 mL since he came from the emergency department. His potassium level is improving as it was as high as 7.9 is currently down to 6.6. Serum bicarb is 14. Lactic acid level was 12.6 currently 11.1. LFTs abnormal consistent with shock liver. AST is 8613, ALT is 8246, troponin max is 1.4, lipase is 684, a urine drug screen is positive for opiates, white cell count is at 23.4. Hemoglobin is at 15.6. CAT scan of the brain showed no acute abnormalities. Chest x-ray showing asymmetric right-sided edema versus pneumonia. The patient has an ET tube in place which is quite elevated around 5 cm above the jose. Patient was reevaluated today on 04/05/2019, remains on mechanical ventilation, and his ventilator settings are assist control rate of 26, tidal volume of 550, PEEP of 10, FiO2 is 80%. Patient remains on propofol, norepinephrine maximized, vasopressin maximized. His peak airway pressure is 28, plateau pressure is 22, patient has extremely poor urine output, remains on propofol, not requiring any Nimbex. Family is at bedside, and they were updated on his poor condition. Patient remains unresponsive to any stimuli. He has some cough reflex upon suctioning only. Pupils are not reactive to light. And patient has no corneal reflex. Patient was seen by neurology yesterday, and felt that the patient had significant and profound anoxic brain injury. Family is very well aware of his condition. Chest x-ray shows bibasilar infiltrates. ABG this morning showed a pO2 of 95 pCO2 of 32 pH of 7.40 his lactic acid remains elevated, patient remains on sodium bicarb drip. WBC count is 32.7 hemoglobin is 15.4. Potassium 6.3 BUN is 34 creatinine 5.01. His acute kidney injury is being addressed by nephrology. Liver enzymes were also noted to be extremely elevated including elevated AST ALT, consistent with acute shock liver Objective - Vital Signs Vital signs: Vital Signs Temp 97.8 F 04/05/19 12:00 Pulse 107 H 04/05/19 12:00 Resp 26 H 04/05/19 12:00 BP 89/35 04/05/19 12:00 Pulse Ox 95 04/05/19 12:00 Intake & Output 04/04/19 04/05/19 04/05/19 18:59 06:59 18:59 Intake Total 2313.702 2419.612 1463.582 Output Total 215 125 25 Balance 2098.702 2294.612 1438.582 Weight 88.9 kg Intake: IV 1883 1106 Calcium Gluconate 1 gm In 100 100 Sodium Chloride 0.9% 100 ml @ 100 mls/hr IVPB ONCE ONE Rx#:[id number] Piperacillin-Tazobactam 3 100 100 .375 gm In Sodium Chloride 0.9% 100 ml @ 25 mls/hr IVPB Q8HR MATT Rx# :[id number] Pressure bag 33 6 Water For Injection, 1650 900 Sterile 1,000 ml @ 150 mls/hr IV .Q7H10M MATT with Sodium Acetate 150 meq Rx#:[id number] Intake, IV Titration 2313.702 536.612 357.582 Amount Dextrose 5%-0.9% NaCl 1, 400 000 ml @ 200 mls/hr IV . Q5H MATT Rx#:[id number] Empty Bag 1 bag @ Titrate 81.6 14.4 43.2 IV .Q6H53M MATT with Propofol 1,000 mg Rx#: [id number] Norepinephrine 32 mg In 297.402 293.831 191.882 Sodium Chloride 0.9% 218 ml @ 0.05 MCG/KG/MIN 1. 896 mls/hr IV .Q24H MATT Rx#:[id number] Piperacillin-Tazobactam 3 200 .375 gm In Sodium Chloride 0.9% 100 ml @ 25 mls/hr IVPB Q8HR MATT Rx# :[id number] Propofol 1,000 mg In 73.781 100 Empty Bag 1 bag @ Titrate IV .Q0M MATT Rx#: [id number] Sodium Chloride 0.9% 1, 400 000 ml @ 200 mls/hr IV . Q5H MATT Rx#:[id number] Sodium Chloride 0.9% 50 34.7 4.6 22.5 ml @ 0.03 UNITS/MIN 4.59 mls/hr IVPB .Q11H7M MATT with Vasopressin 20 unit Rx#:[id number] Water For Injection, 900 150 Sterile 1,000 ml @ 150 mls/hr IV .Q7H10M MATT with Sodium Acetate 150 meq Rx#:[id number] Output: Gastric Drainage 150 Urine 65 125 25 Other: Voiding Method Indwelling Catheter Indwelling Catheter Indwelling Catheter # Bowel Movements 1 1 ABP, PAP, CO, CI - Last Documented Arterial Blood Pressure 93/75 - Exam Physical exam revealed a 33-year-old white male on mechanical ventilation, in no distress. Unresponsive to any stimuli. Head exam atraumatic, normocephalic. Neck : Supple, no neck masses, no JVD. Endotracheal tube and orogastric tube are intact. Lungs diminished breath sounds at the bases no crackles or rhonchi or wheezes. Cardiac exam revealed normal S1 and S2, no S3 gallop. No murmur. Abdominal exam revealed soft nontender no megaly no rebound no guarding, positive bowel sounds. Extremities no clubbing edema or cyanosis, diminished distal pulses bilaterally. Examination of the skin no rashes, no areas of erythema noted Neurologically the patient is unresponsive. Pupils are round 3- 4 mm in size nonreactive. No corneal. Cough reflex is noted with suctioning, no gag reflex. No facial asymmetry. No Babinski. No clonus. Twitching of the head is noted. - Labs CBC & Chem 7: 04/05/19 04:34 04/05/19 05:37 Labs: Abnormal Lab Results - Last 24 Hours (Table) 04/04/19 04/04/19 04/04/19 Range/Units 10:48 12:45 12:45 WBC (3.8-10.6) k/uL Plt Count (150-450) k/uL Neutrophils # (Manual) (1.3-7.7) k/uL PT 35.6 H (9.0-12.0) sec INR 3.7 H (<1.2) APTT 60.4 H (22.0-30.0) sec ABG pH <7.00 L* (7.35-7.45) ABG pCO2 (35-45) mmHg ABG pO2 (83-108) mmHg ABG HCO3 8 L* (21-25) mmol/L ABG Total CO2 (19-24) mmol/L ABG O2 Saturation (94-97) % Potassium (3.5-5.1) mmol/L Carbon Dioxide (22-30) mmol/L BUN (9-20) mg/dL Creatinine (0.66-1.25) mg/dL Glucose (74-99) mg/dL POC Glucose (mg/dL) (75-99) mg/dL Plasma Lactic Acid Keshav 13.7 H* (0.7-2.0) mmol/L Calcium (8.4-10.2) mg/dL Phosphorus (2.5-4.5) mg/dL Magnesium (1.6-2.3) mg/dL Total Bilirubin (0.2-1.3) mg/dL AST (17-59) U/L ALT (21-72) U/L Alkaline Phosphatase (38-126) U/L Total Protein (6.3-8.2) g/dL Albumin (3.5-5.0) g/dL 04/04/19 04/04/19 04/04/19 Range/Units 15:45 16:40 16:40 WBC (3.8-10.6) k/uL Plt Count (150-450) k/uL Neutrophils # (Manual) (1.3-7.7) k/uL PT 35.9 H (9.0-12.0) sec INR 3.7 H (<1.2) APTT 53.4 H (22.0-30.0) sec ABG pH (7.35-7.45) ABG pCO2 (35-45) mmHg ABG pO2 (83-108) mmHg ABG HCO3 (21-25) mmol/L ABG Total CO2 (19-24) mmol/L ABG O2 Saturation (94-97) % Potassium 7.0 H* (3.5-5.1) mmol/L Carbon Dioxide 8 L* (22-30) mmol/L BUN 22 H (9-20) mg/dL Creatinine 3.84 H (0.66-1.25) mg/dL Glucose 123 H (74-99) mg/dL POC Glucose (mg/dL) 128 H (75-99) mg/dL Plasma Lactic Acid Keshav (0.7-2.0) mmol/L Calcium 6.4 L* (8.4-10.2) mg/dL Phosphorus (2.5-4.5) mg/dL Magnesium (1.6-2.3) mg/dL Total Bilirubin 2.5 H (0.2-1.3) mg/dL AST >13484 H (17-59) U/L ALT >36785 H (21-72) U/L Alkaline Phosphatase 137 H (38-126) U/L Total Protein 5.4 L (6.3-8.2) g/dL Albumin 3.2 L (3.5-5.0) g/dL 04/04/19 04/04/19 04/04/19 Range/Units 17:00 19:56 21:55 WBC (3.8-10.6) k/uL Plt Count (150-450) k/uL Neutrophils # (Manual) (1.3-7.7) k/uL PT (9.0-12.0) sec INR (<1.2) APTT (22.0-30.0) sec ABG pH 7.09 L* (7.35-7.45) ABG pCO2 26 L (35-45) mmHg ABG pO2 186 H (83-108) mmHg ABG HCO3 8 L* (21-25) mmol/L ABG Total CO2 9 L (19-24) mmol/L ABG O2 Saturation 98.7 H (94-97) % Potassium 6.1 H* (3.5-5.1) mmol/L Carbon Dioxide 14 L (22-30) mmol/L BUN 28 H (9-20) mg/dL Creatinine 3.92 H (0.66-1.25) mg/dL Glucose 111 H (74-99) mg/dL POC Glucose (mg/dL) 189 H (75-99) mg/dL Plasma Lactic Acid Keshav (0.7-2.0) mmol/L Calcium 6.3 L* (8.4-10.2) mg/dL Phosphorus (2.5-4.5) mg/dL Magnesium (1.6-2.3) mg/dL Total Bilirubin 4.1 H (0.2-1.3) mg/dL AST >75706 H (17-59) U/L ALT >45362 H (21-72) U/L Alkaline Phosphatase (38-126) U/L Total Protein 5.4 L (6.3-8.2) g/dL Albumin 3.3 L (3.5-5.0) g/dL 0504/05/19 04/05/19 Range/Units 22:30 04:34 04:38 WBC 32.7 H (3.8-10.6) k/uL Plt Count 68 L (150-450) k/uL Neutrophils # (Manual) 31.30 H (1.3-7.7) k/uL PT (9.0-12.0) sec INR (<1.2) APTT (22.0-30.0) sec ABG pH 7.23 L 7.26 L (7.35-7.45) ABG pCO2 27 L 30 L (35-45) mmHg ABG pO2 158 H (83-108) mmHg ABG HCO3 11 L 14 L (21-25) mmol/L ABG Total CO2 12 L 15 L (19-24) mmol/L ABG O2 Saturation 98.4 H (94-97) % Potassium (3.5-5.1) mmol/L Carbon Dioxide (22-30) mmol/L BUN (9-20) mg/dL Creatinine (0.66-1.25) mg/dL Glucose (74-99) mg/dL POC Glucose (mg/dL) (75-99) mg/dL Plasma Lactic Acid Keshav (0.7-2.0) mmol/L Calcium (8.4-10.2) mg/dL Phosphorus (2.5-4.5) mg/dL Magnesium (1.6-2.3) mg/dL Total Bilirubin (0.2-1.3) mg/dL AST (17-59) U/L ALT (21-72) U/L Alkaline Phosphatase (38-126) U/L Total Protein (6.3-8.2) g/dL Albumin (3.5-5.0) g/dL 04/05/19 04/05/19 04/05/19 Range/Units 05:30 05:32 05:37 WBC (3.8-10.6) k/uL Plt Count (150-450) k/uL Neutrophils # (Manual) (1.3-7.7) k/uL PT 42.8 H (9.0-12.0) sec INR 4.4 H (<1.2) APTT 53.1 H (22.0-30.0) sec ABG pH (7.35-7.45) ABG pCO2 (35-45) mmHg ABG pO2 (83-108) mmHg ABG HCO3 (21-25) mmol/L ABG Total CO2 (19-24) mmol/L ABG O2 Saturation (94-97) % Potassium (3.5-5.1) mmol/L Carbon Dioxide (22-30) mmol/L BUN (9-20) mg/dL Creatinine (0.66-1.25) mg/dL Glucose (74-99) mg/dL POC Glucose (mg/dL) 37 L 37 L (75-99) mg/dL Plasma Lactic Acid Keshav (0.7-2.0) mmol/L Calcium (8.4-10.2) mg/dL Phosphorus (2.5-4.5) mg/dL Magnesium (1.6-2.3) mg/dL Total Bilirubin (0.2-1.3) mg/dL AST (17-59) U/L ALT (21-72) U/L Alkaline Phosphatase (38-126) U/L Total Protein (6.3-8.2) g/dL Albumin (3.5-5.0) g/dL 04/05/19 04/05/19 04/05/19 Range/Units 05:37 05:37 05:57 WBC (3.8-10.6) k/uL Plt Count (150-450) k/uL Neutrophils # (Manual) (1.3-7.7) k/uL PT (9.0-12.0) sec INR (<1.2) APTT (22.0-30.0) sec ABG pH (7.35-7.45) ABG pCO2 (35-45) mmHg ABG pO2 (83-108) mmHg ABG HCO3 (21-25) mmol/L ABG Total CO2 (19-24) mmol/L ABG O2 Saturation (94-97) % Potassium 6.3 H* (3.5-5.1) mmol/L Carbon Dioxide 14 L (22-30) mmol/L BUN 34 H (9-20) mg/dL Creatinine 5.01 H (0.66-1.25) mg/dL Glucose 103 H (74-99) mg/dL POC Glucose (mg/dL) 106 H (75-99) mg/dL Plasma Lactic Acid Keshav 14.3 H* (0.7-2.0) mmol/L Calcium 5.8 L* (8.4-10.2) mg/dL Phosphorus 8.5 H (2.5-4.5) mg/dL Magnesium 2.8 H (1.6-2.3) mg/dL Total Bilirubin 5.0 H (0.2-1.3) mg/dL AST >02367 H (17-59) U/L ALT >09117 H (21-72) U/L Alkaline Phosphatase 130 H (38-126) U/L Total Protein 4.4 L (6.3-8.2) g/dL Albumin 2.5 L (3.5-5.0) g/dL 04/05/19 04/05/19 04/05/19 Range/Units 07:58 08:18 10:33 WBC (3.8-10.6) k/uL Plt Count (150-450) k/uL Neutrophils # (Manual) (1.3-7.7) k/uL PT (9.0-12.0) sec INR (<1.2) APTT (22.0-30.0) sec ABG pH (7.35-7.45) ABG pCO2 32 L (35-45) mmHg ABG pO2 (83-108) mmHg ABG HCO3 20 L (21-25) mmol/L ABG Total CO2 (19-24) mmol/L ABG O2 Saturation (94-97) % Potassium (3.5-5.1) mmol/L Carbon Dioxide (22-30) mmol/L BUN (9-20) mg/dL Creatinine (0.66-1.25) mg/dL Glucose (74-99) mg/dL POC Glucose (mg/dL) 68 L 136 H (75-99) mg/dL Plasma Lactic Acid Keshav (0.7-2.0) mmol/L Calcium (8.4-10.2) mg/dL Phosphorus (2.5-4.5) mg/dL Magnesium (1.6-2.3) mg/dL Total Bilirubin (0.2-1.3) mg/dL AST (17-59) U/L ALT (21-72) U/L Alkaline Phosphatase (38-126) U/L Total Protein (6.3-8.2) g/dL Albumin (3.5-5.0) g/dL 04/05/19 04/05/19 Range/Units 10:43 11:58 WBC (3.8-10.6) k/uL Plt Count (150-450) k/uL Neutrophils # (Manual) (1.3-7.7) k/uL PT (9.0-12.0) sec INR (<1.2) APTT (22.0-30.0) sec ABG pH (7.35-7.45) ABG pCO2 (35-45) mmHg ABG pO2 (83-108) mmHg ABG HCO3 (21-25) mmol/L ABG Total CO2 (19-24) mmol/L ABG O2 Saturation (94-97) % Potassium (3.5-5.1) mmol/L Carbon Dioxide (22-30) mmol/L BUN (9-20) mg/dL Creatinine (0.66-1.25) mg/dL Glucose (74-99) mg/dL POC Glucose (mg/dL) 113 H (75-99) mg/dL Plasma Lactic Acid Keshav 15.0 H* (0.7-2.0) mmol/L Calcium (8.4-10.2) mg/dL Phosphorus (2.5-4.5) mg/dL Magnesium (1.6-2.3) mg/dL Total Bilirubin (0.2-1.3) mg/dL AST (17-59) U/L ALT (21-72) U/L Alkaline Phosphatase (38-126) U/L Total Protein (6.3-8.2) g/dL Albumin (3.5-5.0) g/dL Microbiology - Last 24 Hours (Table) 04/04/19 06:08 Gram Stain - Preliminary Sputum Sputum Culture - Preliminary 04/04/19 07:00 Blood Culture - Preliminary Blood No Growth after 24 hours Assessment and Plan Assessment: Impression: 1 acute cardiopulmonary arrest, most likely related to drug overdose. Patient had a prolonged downtime, hence we strongly suspect that we may be dealing with anoxic brain injury. 2 multiple system organ failure secondary to cardiopulmonary arrest. 3 myoclonic jerks secondary to hypoxic encephalopathy 4 acute hypoxic respiratory failure secondary to cardiopulmonary arrest 5 severe lactic acidosis secondary to poor perfusion 6 acute kidney injury with hyperkalemia secondary to above. 7 elevated troponin secondary to cardiac arrest and CPR 8 history of substance abuse 9 shock liver 10 intermittent episodes of hypoglycemia being addressed accordingly. Recommendation: Continue present supportive care measures including ventilatory support, hemodynamic support, GI and DVT prophylaxis, sodium bicarb drip, empiric antibiotics, nutritional support, had a long discussion with family at bedside, updated them on his poor condition, CODE STATUS remains DO NOT RESUSCITATE, I believe we may be considering comfort care measures in the next couple of days. Patient is critically ill, and considering his multisystem organ failure, and considering his anoxic brain injury, chances of meaningful recovery is extremely nil. Family is very well aware of his condition. We'll continue to follow. Critical care time is 45 minutes Time with Patient: Greater than 30
[2019-04-05 13:43] LABS: Albumin 2.4 g/dL (3.5-5.0); Alkaline Phosphatase 130 U/L (38-126); Anion Gap 24 mmol/L; Blood Urea Nitrogen 39 mg/dL (9-20); Carbon Dioxide 20 mmol/L (22-30); Chloride 95 mmol/L (98-107); Glucose 108 mg/dL (74-99); Sodium 139 mmol/L (137-145); Total Bilirubin 6.7 mg/dL (0.2-1.3); Total Protein 4.2 g/dL (6.3-8.2)
[2019-04-05 14:07] LABS: Calcium 5.8 mg/dL (8.4-10.2)
[2019-04-05 14:46] LABS: ALT >10000 U/L (21-72)
[2019-04-05 14:55] LABS: AST >15000 U/L (17-59)
[2019-04-05] MEDS ORDERED: CALCIUM GLUCONATE 2 GM in SODIUM CHLORIDE 0.9% 100 ML IVPB ONE ×2 (15:07→21:30)
[2019-04-05 16:31] LABS: Glucose,Whole Blood 67 mg/dL (75-99)
[2019-04-05 16:52] LABS: Glucose,Whole Blood 134 mg/dL (75-99)
[2019-04-05] MEDS ORDERED: FUROSEMIDE 10 MG/ML 10 ML VIAL IV ONE (18:00)
--- NOTE | 2019-04-05 19:32 | P.PN ---
Subjective Progress Note Date: 04/05/19 Patient clinically unchanged. Patient currently on 30 g of propofol. When the sedation is diminished, then patient starts posturing. His head sometimes starts jerking. No seizure-like activity has been noticed otherwise. Objective - Vital Signs Vital signs: Vital Signs Temp 97.9 F 04/05/19 16:00 Pulse 113 H 04/05/19 19:00 Resp 26 H 04/05/19 19:00 BP 102/46 04/05/19 19:00 Pulse Ox 94 L 04/05/19 19:00 Intake & Output 04/05/19 04/05/19 04/06/19 06:59 18:59 06:59 Intake Total 2419.612 2684.312 154.5 Output Total 125 185 0 Balance 2294.612 2499.312 154.5 Weight 88.9 kg Intake: IV 1883 2106 150 Calcium Gluconate 1 gm In 100 100 Sodium Chloride 0.9% 100 ml @ 100 mls/hr IVPB ONCE ONE Rx#:[id number] Piperacillin-Tazobactam 3 100 200 .375 gm In Sodium Chloride 0.9% 100 ml @ 25 mls/hr IVPB Q8HR MATT Rx# :[id number] Pressure bag 33 6 Water For Injection, 1650 1800 150 Sterile 1,000 ml @ 150 mls/hr IV .Q7H10M MATT with Sodium Acetate 150 meq Rx#:[id number] Intake, IV Titration 536.612 578.312 4.5 Amount Calcium Gluconate 2 gm In 100 Sodium Chloride 0.9% 100 ml @ 100 mls/hr IVPB ONCE ONE Rx#:[id number] Empty Bag 1 bag @ Titrate 14.4 43.2 IV .Q6H53M MATT with Propofol 1,000 mg Rx#: [id number] Norepinephrine 32 mg In 293.831 285.612 Sodium Chloride 0.9% 218 ml @ 0.05 MCG/KG/MIN 1. 896 mls/hr IV .Q24H MATT Rx#:[id number] Propofol 1,000 mg In 73.781 100 Empty Bag 1 bag @ Titrate IV .Q0M MATT Rx#: [id number] Sodium Chloride 0.9% 50 4.6 49.5 4.5 ml @ 0.03 UNITS/MIN 4.59 mls/hr IVPB .Q11H7M MATT with Vasopressin 20 unit Rx#:[id number] Water For Injection, 150 Sterile 1,000 ml @ 150 mls/hr IV .Q7H10M MATT with Sodium Acetate 150 meq Rx#:[id number] Output: Gastric Drainage 150 Urine 125 35 0 Other: Voiding Method Indwelling Catheter Indwelling Catheter # Bowel Movements 1 ABP, PAP, CO, CI - Last Documented Arterial Blood Pressure 93/75 - Exam Patient is comatose, not responding to any vocal or painful commands. Patient has weak cough, but no gag. Pupils are about 3 mm, not clearly reacting to light. Corneals absent, oculocephalics absent. Reflexes are trace in the upper, trace to 1 at the knees, patient has sustained clonus on the right, but no clonus on the left. Plantars are flat bilaterally. - Labs CBC & Chem 7: 04/05/19 04:34 04/05/19 13:10 Labs: Abnormal Lab Results - Last 24 Hours (Table) 04/04/19 04/04/19 04/04/19 Range/Units 10:48 17:00 19:56 WBC (3.8-10.6) k/uL Plt Count (150-450) k/uL Neutrophils # (Manual) (1.3-7.7) k/uL PT (9.0-12.0) sec INR (<1.2) APTT (22.0-30.0) sec ABG pH <7.00 L* 7.09 L* (7.35-7.45) ABG pCO2 (35-45) mmHg ABG pO2 (83-108) mmHg ABG HCO3 8 L* 8 L* (21-25) mmol/L ABG Total CO2 (19-24) mmol/L ABG O2 Saturation (94-97) % Potassium (3.5-5.1) mmol/L Chloride (98-107) mmol/L Carbon Dioxide (22-30) mmol/L BUN (9-20) mg/dL Creatinine (0.66-1.25) mg/dL Glucose (74-99) mg/dL POC Glucose (mg/dL) 189 H (75-99) mg/dL Plasma Lactic Acid Keshav (0.7-2.0) mmol/L Calcium (8.4-10.2) mg/dL Phosphorus (2.5-4.5) mg/dL Magnesium (1.6-2.3) mg/dL Total Bilirubin (0.2-1.3) mg/dL AST (17-59) U/L ALT (21-72) U/L Alkaline Phosphatase (38-126) U/L Total Protein (6.3-8.2) g/dL Albumin (3.5-5.0) g/dL 04/04/19 04/04/19 04/05/19 Range/Units 21:55 22:30 04:34 WBC 32.7 H (3.8-10.6) k/uL Plt Count 68 L (150-450) k/uL Neutrophils # (Manual) 31.30 H (1.3-7.7) k/uL PT (9.0-12.0) sec INR (<1.2) APTT (22.0-30.0) sec ABG pH 7.23 L (7.35-7.45) ABG pCO2 27 L (35-45) mmHg ABG pO2 158 H (83-108) mmHg ABG HCO3 11 L (21-25) mmol/L ABG Total CO2 12 L (19-24) mmol/L ABG O2 Saturation 98.4 H (94-97) % Potassium 6.1 H* (3.5-5.1) mmol/L Chloride (98-107) mmol/L Carbon Dioxide 14 L (22-30) mmol/L BUN 28 H (9-20) mg/dL Creatinine 3.92 H (0.66-1.25) mg/dL Glucose 111 H (74-99) mg/dL POC Glucose (mg/dL) (75-99) mg/dL Plasma Lactic Acid Keshav (0.7-2.0) mmol/L Calcium 6.3 L* (8.4-10.2) mg/dL Phosphorus (2.5-4.5) mg/dL Magnesium (1.6-2.3) mg/dL Total Bilirubin 4.1 H (0.2-1.3) mg/dL AST >91661 H (17-59) U/L ALT >66738 H (21-72) U/L Alkaline Phosphatase (38-126) U/L Total Protein 5.4 L (6.3-8.2) g/dL Albumin 3.3 L (3.5-5.0) g/dL 04/05/19 04/05/19 04/05/19 Range/Units 04:38 05:30 05:32 WBC (3.8-10.6) k/uL Plt Count (150-450) k/uL Neutrophils # (Manual) (1.3-7.7) k/uL PT (9.0-12.0) sec INR (<1.2) APTT (22.0-30.0) sec ABG pH 7.26 L (7.35-7.45) ABG pCO2 30 L (35-45) mmHg ABG pO2 (83-108) mmHg ABG HCO3 14 L (21-25) mmol/L ABG Total CO2 15 L (19-24) mmol/L ABG O2 Saturation (94-97) % Potassium (3.5-5.1) mmol/L Chloride (98-107) mmol/L Carbon Dioxide (22-30) mmol/L BUN (9-20) mg/dL Creatinine (0.66-1.25) mg/dL Glucose (74-99) mg/dL POC Glucose (mg/dL) 37 L 37 L (75-99) mg/dL Plasma Lactic Acid Keshav (0.7-2.0) mmol/L Calcium (8.4-10.2) mg/dL Phosphorus (2.5-4.5) mg/dL Magnesium (1.6-2.3) mg/dL Total Bilirubin (0.2-1.3) mg/dL AST (17-59) U/L ALT (21-72) U/L Alkaline Phosphatase (38-126) U/L Total Protein (6.3-8.2) g/dL Albumin (3.5-5.0) g/dL 04/05/19 04/05/19 04/05/19 Range/Units 05:37 05:37 05:37 WBC (3.8-10.6) k/uL Plt Count (150-450) k/uL Neutrophils # (Manual) (1.3-7.7) k/uL PT 42.8 H (9.0-12.0) sec INR 4.4 H (<1.2) APTT 53.1 H (22.0-30.0) sec ABG pH (7.35-7.45) ABG pCO2 (35-45) mmHg ABG pO2 (83-108) mmHg ABG HCO3 (21-25) mmol/L ABG Total CO2 (19-24) mmol/L ABG O2 Saturation (94-97) % Potassium 6.3 H* (3.5-5.1) mmol/L Chloride (98-107) mmol/L Carbon Dioxide 14 L (22-30) mmol/L BUN 34 H (9-20) mg/dL Creatinine 5.01 H (0.66-1.25) mg/dL Glucose 103 H (74-99) mg/dL POC Glucose (mg/dL) (75-99) mg/dL Plasma Lactic Acid Keshav 14.3 H* (0.7-2.0) mmol/L Calcium 5.8 L* (8.4-10.2) mg/dL Phosphorus 8.5 H (2.5-4.5) mg/dL Magnesium 2.8 H (1.6-2.3) mg/dL Total Bilirubin 5.0 H (0.2-1.3) mg/dL AST >72609 H (17-59) U/L ALT >08045 H (21-72) U/L Alkaline Phosphatase 130 H (38-126) U/L Total Protein 4.4 L (6.3-8.2) g/dL Albumin 2.5 L (3.5-5.0) g/dL 04/05/19 04/05/19 04/05/19 Range/Units 05:57 07:58 08:18 WBC (3.8-10.6) k/uL Plt Count (150-450) k/uL Neutrophils # (Manual) (1.3-7.7) k/uL PT (9.0-12.0) sec INR (<1.2) APTT (22.0-30.0) sec ABG pH (7.35-7.45) ABG pCO2 (35-45) mmHg ABG pO2 (83-108) mmHg ABG HCO3 (21-25) mmol/L ABG Total CO2 (19-24) mmol/L ABG O2 Saturation (94-97) % Potassium (3.5-5.1) mmol/L Chloride (98-107) mmol/L Carbon Dioxide (22-30) mmol/L BUN (9-20) mg/dL Creatinine (0.66-1.25) mg/dL Glucose (74-99) mg/dL POC Glucose (mg/dL) 106 H 68 L 136 H (75-99) mg/dL Plasma Lactic Acid Keshav (0.7-2.0) mmol/L Calcium (8.4-10.2) mg/dL Phosphorus (2.5-4.5) mg/dL Magnesium (1.6-2.3) mg/dL Total Bilirubin (0.2-1.3) mg/dL AST (17-59) U/L ALT (21-72) U/L Alkaline Phosphatase (38-126) U/L Total Protein (6.3-8.2) g/dL Albumin (3.5-5.0) g/dL 04/05/19 04/05/19 04/05/19 Range/Units 10:33 10:43 11:58 WBC (3.8-10.6) k/uL Plt Count (150-450) k/uL Neutrophils # (Manual) (1.3-7.7) k/uL PT (9.0-12.0) sec INR (<1.2) APTT (22.0-30.0) sec ABG pH (7.35-7.45) ABG pCO2 32 L (35-45) mmHg ABG pO2 (83-108) mmHg ABG HCO3 20 L (21-25) mmol/L ABG Total CO2 (19-24) mmol/L ABG O2 Saturation (94-97) % Potassium (3.5-5.1) mmol/L Chloride (98-107) mmol/L Carbon Dioxide (22-30) mmol/L BUN (9-20) mg/dL Creatinine (0.66-1.25) mg/dL Glucose (74-99) mg/dL POC Glucose (mg/dL) 113 H (75-99) mg/dL Plasma Lactic Acid Keshav 15.0 H* (0.7-2.0) mmol/L Calcium (8.4-10.2) mg/dL Phosphorus (2.5-4.5) mg/dL Magnesium (1.6-2.3) mg/dL Total Bilirubin (0.2-1.3) mg/dL AST (17-59) U/L ALT (21-72) U/L Alkaline Phosphatase (38-126) U/L Total Protein (6.3-8.2) g/dL Albumin (3.5-5.0) g/dL 04/05/19 04/05/19 04/05/19 Range/Units 13:10 16:28 16:50 WBC (3.8-10.6) k/uL Plt Count (150-450) k/uL Neutrophils # (Manual) (1.3-7.7) k/uL PT (9.0-12.0) sec INR (<1.2) APTT (22.0-30.0) sec ABG pH (7.35-7.45) ABG pCO2 (35-45) mmHg ABG pO2 (83-108) mmHg ABG HCO3 (21-25) mmol/L ABG Total CO2 (19-24) mmol/L ABG O2 Saturation (94-97) % Potassium (3.5-5.1) mmol/L Chloride 95 L (98-107) mmol/L Carbon Dioxide 20 L (22-30) mmol/L BUN 39 H (9-20) mg/dL Creatinine 5.65 H (0.66-1.25) mg/dL Glucose 108 H (74-99) mg/dL POC Glucose (mg/dL) 67 L 134 H (75-99) mg/dL Plasma Lactic Acid Keshav (0.7-2.0) mmol/L Calcium 5.8 L* (8.4-10.2) mg/dL Phosphorus (2.5-4.5) mg/dL Magnesium (1.6-2.3) mg/dL Total Bilirubin 6.7 H (0.2-1.3) mg/dL AST >88926 H (17-59) U/L ALT >52588 H (21-72) U/L Alkaline Phosphatase 130 H (38-126) U/L Total Protein 4.2 L (6.3-8.2) g/dL Albumin 2.4 L (3.5-5.0) g/dL Microbiology - Last 24 Hours (Table) 04/04/19 06:08 Gram Stain - Preliminary Sputum Sputum Culture - Preliminary 04/04/19 07:00 Blood Culture - Preliminary Blood No Growth after 24 hours Assessment and Plan Assessment: * Cardiac arrest, with what appears to be a possible prolonged downtime. * Patient with severe anoxic encephalopathy. * Probable drug overdose. * History of substance abuse, currently was in rehabilitation. * Previous history of cardiac arrest in 2013 * Multiorgan failure, with acute kidney injury, elevated liver enzymes, elevated troponins. Plan: * Overall prognosis appears poor based upon the extent of the possible downtime and evidence of multiorgan dysfunction. * Patient's EEG reviewed. It showed severely abnormal EEG due to severe back no slowing, and background suppression, which at times appears isoelectric. This is suggestive of generalized cerebral dysfunction, related to patient's history of cardiac arrest, with possible anoxic encephalopathy. No epileptiform activity seen. * Discussed with patient's family and patient's PCP in detail. Answered their questions. * Your medical management. * Repeat computed tomography scan of the head in the morning to assess for extent of cerebral edema. We'll hold off on mannitol because of acute renal failure, probably will not be beneficial.
[2019-04-05 19:44] LABS: Potassium 5.8 mmol/L (3.5-5.1)
[2019-04-05 19:58] LABS: Glucose,Whole Blood 81 mg/dL (75-99)
[2019-04-05 23:48] LABS: Glucose,Whole Blood 121 mg/dL (75-99)
[2019-04-06] MEDS: PIPERACILLIN-TAZOBACTAM 3.375 GM in SODIUM CHLORIDE 0.9% 100 ML IVPB SCH ×3 (00:24→15:58)
[2019-04-06] MEDS: PROPOFOL 1,000 MG in EMPTY BAG 1 BAG IV SCH ×2 (00:24→07:09)
[2019-04-06] MEDS: WATER FOR INJECTION, STERILE 1,000 ML with SODIUM ACETATE 150 MEQ IV SCH ×4 (00:24→10:55)
[2019-04-06] MEDS: NOREPINEPHRINE 32 MG in SODIUM CHLORIDE 0.9% 218 ML IV SCH ×2 (00:25→15:57)
[2019-04-06 03:34] LABS: Calcium 6.5 mg/dL (8.4-10.2)
[2019-04-06 03:54] LABS: Glucose,Whole Blood 64 mg/dL (75-99)
[2019-04-06] MEDS ORDERED: DEXTROSE 50% SYRINGE 50 ML IVP STA (03:55)
[2019-04-06 06:20] LABS: HCT 42.2 % (39.0-53.0); HGB 14.2 gm/dL (13.0-17.5); MCH 29.2 pg (25.0-35.0); MCHC 33.6 g/dL (31.0-37.0); Mean Platelet Volume 9.7; RBC 4.85 m/uL (4.30-5.90); RDW 15.6 % (11.5-15.5)
[2019-04-06 06:24] LABS: INR 3.4 (<1.2); Partial Thromboplastin Time 41.9 sec (22.0-30.0)
[2019-04-06 06:28] LABS: Albumin 2.6 g/dL (3.5-5.0); Alkaline Phosphatase 170 U/L (38-126); Anion Gap 25 mmol/L; Blood Urea Nitrogen 52 mg/dL (9-20); Carbon Dioxide 29 mmol/L (22-30); Chloride 88 mmol/L (98-107); Glucose 81 mg/dL (74-99); Magnesium 2.9 mg/dL (1.6-2.3); Phosphorus 8.7 mg/dL (2.5-4.5); Potassium 5.2 mmol/L (3.5-5.1); Sodium 142 mmol/L (137-145); Total Bilirubin 10.9 mg/dL (0.2-1.3); Total Protein 4.4 g/dL (6.3-8.2)
[2019-04-06 06:37] LABS: Calcium 5.6 mg/dL (8.4-10.2)
--- NOTE | 2019-04-06 06:39 | P.PN ---
Subjective This is a 53 years old male with past medical history of substance abuse, heroin overdose in 2014, previous history of cardiac arrest, IV drug abuse, bipolar and depression, fentanyl overdose. He was recently discharged from hospital about one month ago for fentanyl overdose, and that time he has chest pain and abnormal stress test. However he had a normal cardiac angiogram and his been evaluated by fitter hand. Also patient has been evaluated by psychiatrist off found him no need for psychiatrist admission.pt could not provide information and it was taken from staff and medical records as well as the staff at bed side. Patient was brought from [facility] for being unresponsive, when his roommate noticed that he was not breathing, and he did cardiopulmonary resuscitation for approximately 5 minutes, then he alerted the staff , who found the patient called, symmetric and pulseless. CPR was re- initiated , he got 3 doses of intranasal Narcan with no response. EMS arrived to the scene, patient got intubated, IV access was obtained and blood glucose was 29. D50 was given as well as 3 rounds of epinephrine, eventually patient's circulation returned and patient was transported to the emergency room. On arrival patient was unresponsive, he was intubated, he has some twitching movements in his head, there was no coronary flexor, no gag reflex no Babinski reflex. Right femoral line was placed and family were contacted. Family were at bedside, including mother and brother and grandfather. As per his brother, last time his been seen about 2 weeks ago and he wasn't complaining from medical problems, other than some abdominal hernia and he stated for the last 2 weeks he is been in [place] for rehab. INR 2.9, ABG showing PH less than 7. Oxygen PO2 288 and pCO2 44. His potassium 7.9, creatinine 2.7, glucose 47 after D50 went up to 112, plus the lactic acid 12.6, liver enzymes more than 45,000, t roponin 0.15, amylase 199, lipase 684, urine drug screen is positive for methadone . Brain CT: No acute process. Chest x-ray showing right pulmonary edema versus pneumonia per radiologist's report. EKG showing normal sinus rhythm at 74. Patient is already on normal saline at 200 L/h. 04/05/2019 The patient remains in the ICU intubated and sedated. He has episodes of low blood sugar being corrected by D50 injections. He is on epinephrine and propofol. No more myoclonic jerks as noted, no seizure-like activity. Labs showing significant abnormality including leukocytosis at 30 2.7K, creatinine 6.0, potassium at 5.8. INR 4.4. Liver enzymes are significantly elevated more than 10,000, patient is being followed closely by several consultants including pulmonary/critical care, neurologist, fitter hand, house cleaner supervisor. EEG showing generalized cerebral dysfunction related to his anoxic brain injury. Shipping Technician recommended CT of the brain to monitor his cerebral edema. Shipping Technician were considering replacement therapy. His prognosis remains very poor. I discussed the case with the father at bedside and he told me he does not want his son to be like this for long time if there is no signs of improvement. CODE STATUS was changed by the family to no code with the critical care team. review of systems: Not applicable Medication: norepinephrine drip, Protonix 40 mg, Zosyn 3.375 g, propofol 100 mL, vasopressin 20 units, several injection of D50, calcium carbonate 2 g, Objective - Vital Signs Vital signs: Vital Signs Temp 97.9 F 04/05/19 16:00 Pulse 113 H 04/05/19 19:00 Resp 26 H 04/05/19 19:00 BP 102/46 04/05/19 19:00 Pulse Ox 94 L 04/05/19 19:00 Intake & Output 04/05/19 04/05/19 04/06/19 06:59 18:59 06:59 Intake Total 2419.612 2684.312 154.5 Output Total 125 185 0 Balance 2294.612 2499.312 154.5 Weight 88.9 kg Intake: IV 1883 2106 150 Calcium Gluconate 1 gm In 100 100 Sodium Chloride 0.9% 100 ml @ 100 mls/hr IVPB ONCE ONE Rx#:[id number] Piperacillin-Tazobactam 3 100 200 .375 gm In Sodium Chloride 0.9% 100 ml @ 25 mls/hr IVPB Q8HR MATT Rx# :[id number] Pressure bag 33 6 Water For Injection, 1650 1800 150 Sterile 1,000 ml @ 150 mls/hr IV .Q7H10M MATT with Sodium Acetate 150 meq Rx#:[id number] Intake, IV Titration 536.612 578.312 4.5 Amount Calcium Gluconate 2 gm In 100 Sodium Chloride 0.9% 100 ml @ 100 mls/hr IVPB ONCE ONE Rx#:[id number] Empty Bag 1 bag @ Titrate 14.4 43.2 IV .Q6H53M MATT with Propofol 1,000 mg Rx#: [id number] Norepinephrine 32 mg In 293.831 285.612 Sodium Chloride 0.9% 218 ml @ 0.05 MCG/KG/MIN 1. 896 mls/hr IV .Q24H MATT Rx#:[id number] Propofol 1,000 mg In 73.781 100 Empty Bag 1 bag @ Titrate IV .Q0M MATT Rx#: [id number] Sodium Chloride 0.9% 50 4.6 49.5 4.5 ml @ 0.03 UNITS/MIN 4.59 mls/hr IVPB .Q11H7M MATT with Vasopressin 20 unit Rx#:[id number] Water For Injection, 150 Sterile 1,000 ml @ 150 mls/hr IV .Q7H10M MATT with Sodium Acetate 150 meq Rx#:[id number] Output: Gastric Drainage 150 Urine 125 35 0 Other: Voiding Method Indwelling Catheter Indwelling Catheter # Bowel Movements 1 ABP, PAP, CO, CI - Last Documented Arterial Blood Pressure 93/75 - Exam GENERAL: Intubated, unresponsive. HEENT: Pupils are round and fixed. corneal flex and gag reflexes were absent. EOMI. No scleral icterus. No conjunctival pallor. Normocephalic, atraumatic. No pharyngeal erythema. No thyromegaly. He has OG tube with around 100 mL of the drain. CARDIOVASCULAR: S1 and S2 present. No murmurs, rubs, or gallops. PULMONARY: Chest is clear to auscultation, no wheezing or crackles. ABDOMEN: Soft, nontender, nondistended, normoactive bowel sounds. No palpable organomegaly. MUSCULOSKELETAL: No joint swelling or deformity. EXTREMITIES: No cyanosis, clubbing, or pedal edema. NEUROLOGICAL: Patient is unresponsive, difficult to assess motor and sensory system. no more myoclonic jerks SKIN: No rashes. - Labs CBC & Chem 7: 04/05/19 04:34 04/06/19 04:45 Labs: Abnormal Lab Results - Last 24 Hours (Table) 04/04/19 04/04/19 04/04/19 Range/Units 10:48 17:00 21:55 WBC (3.8-10.6) k/uL Plt Count (150-450) k/uL Neutrophils # (Manual) (1.3-7.7) k/uL PT (9.0-12.0) sec INR (<1.2) APTT (22.0-30.0) sec ABG pH <7.00 L* 7.09 L* (7.35-7.45) ABG pCO2 (35-45) mmHg ABG pO2 (83-108) mmHg ABG HCO3 8 L* 8 L* (21-25) mmol/L ABG Total CO2 (19-24) mmol/L ABG O2 Saturation (94-97) % Potassium 6.1 H* (3.5-5.1) mmol/L Chloride (98-107) mmol/L Carbon Dioxide 14 L (22-30) mmol/L BUN 28 H (9-20) mg/dL Creatinine 3.92 H (0.66-1.25) mg/dL Glucose 111 H (74-99) mg/dL POC Glucose (mg/dL) (75-99) mg/dL Plasma Lactic Acid Keshav (0.7-2.0) mmol/L Calcium 6.3 L* (8.4-10.2) mg/dL Phosphorus (2.5-4.5) mg/dL Magnesium (1.6-2.3) mg/dL Total Bilirubin 4.1 H (0.2-1.3) mg/dL AST >89025 H (17-59) U/L ALT >44125 H (21-72) U/L Alkaline Phosphatase (38-126) U/L Total Protein 5.4 L (6.3-8.2) g/dL Albumin 3.3 L (3.5-5.0) g/dL 04/04/19 04/05/19 04/05/19 Range/Units 22:30 04:34 04:38 WBC 32.7 H (3.8-10.6) k/uL Plt Count 68 L (150-450) k/uL Neutrophils # (Manual) 31.30 H (1.3-7.7) k/uL PT (9.0-12.0) sec INR (<1.2) APTT (22.0-30.0) sec ABG pH 7.23 L 7.26 L (7.35-7.45) ABG pCO2 27 L 30 L (35-45) mmHg ABG pO2 158 H (83-108) mmHg ABG HCO3 11 L 14 L (21-25) mmol/L ABG Total CO2 12 L 15 L (19-24) mmol/L ABG O2 Saturation 98.4 H (94-97) % Potassium (3.5-5.1) mmol/L Chloride (98-107) mmol/L Carbon Dioxide (22-30) mmol/L BUN (9-20) mg/dL Creatinine (0.66-1.25) mg/dL Glucose (74-99) mg/dL POC Glucose (mg/dL) (75-99) mg/dL Plasma Lactic Acid Keshav (0.7-2.0) mmol/L Calcium (8.4-10.2) mg/dL Phosphorus (2.5-4.5) mg/dL Magnesium (1.6-2.3) mg/dL Total Bilirubin (0.2-1.3) mg/dL AST (17-59) U/L ALT (21-72) U/L Alkaline Phosphatase (38-126) U/L Total Protein (6.3-8.2) g/dL Albumin (3.5-5.0) g/dL 04/05/19 04/05/19 04/05/19 Range/Units 05:30 05:32 05:37 WBC (3.8-10.6) k/uL Plt Count (150-450) k/uL Neutrophils # (Manual) (1.3-7.7) k/uL PT 42.8 H (9.0-12.0) sec INR 4.4 H (<1.2) APTT 53.1 H (22.0-30.0) sec ABG pH (7.35-7.45) ABG pCO2 (35-45) mmHg ABG pO2 (83-108) mmHg ABG HCO3 (21-25) mmol/L ABG Total CO2 (19-24) mmol/L ABG O2 Saturation (94-97) % Potassium (3.5-5.1) mmol/L Chloride (98-107) mmol/L Carbon Dioxide (22-30) mmol/L BUN (9-20) mg/dL Creatinine (0.66-1.25) mg/dL Glucose (74-99) mg/dL POC Glucose (mg/dL) 37 L 37 L (75-99) mg/dL Plasma Lactic Acid Keshav (0.7-2.0) mmol/L Calcium (8.4-10.2) mg/dL Phosphorus (2.5-4.5) mg/dL Magnesium (1.6-2.3) mg/dL Total Bilirubin (0.2-1.3) mg/dL AST (17-59) U/L ALT (21-72) U/L Alkaline Phosphatase (38-126) U/L Total Protein (6.3-8.2) g/dL Albumin (3.5-5.0) g/dL 04/05/19 04/05/19 04/05/19 Range/Units 05:37 05:37 05:57 WBC (3.8-10.6) k/uL Plt Count (150-450) k/uL Neutrophils # (Manual) (1.3-7.7) k/uL PT (9.0-12.0) sec INR (<1.2) APTT (22.0-30.0) sec ABG pH (7.35-7.45) ABG pCO2 (35-45) mmHg ABG pO2 (83-108) mmHg ABG HCO3 (21-25) mmol/L ABG Total CO2 (19-24) mmol/L ABG O2 Saturation (94-97) % Potassium 6.3 H* (3.5-5.1) mmol/L Chloride (98-107) mmol/L Carbon Dioxide 14 L (22-30) mmol/L BUN 34 H (9-20) mg/dL Creatinine 5.01 H (0.66-1.25) mg/dL Glucose 103 H (74-99) mg/dL POC Glucose (mg/dL) 106 H (75-99) mg/dL Plasma Lactic Acid Keshav 14.3 H* (0.7-2.0) mmol/L Calcium 5.8 L* (8.4-10.2) mg/dL Phosphorus 8.5 H (2.5-4.5) mg/dL Magnesium 2.8 H (1.6-2.3) mg/dL Total Bilirubin 5.0 H (0.2-1.3) mg/dL AST >71420 H (17-59) U/L ALT >63306 H (21-72) U/L Alkaline Phosphatase 130 H (38-126) U/L Total Protein 4.4 L (6.3-8.2) g/dL Albumin 2.5 L (3.5-5.0) g/dL 04/05/19 04/05/19 04/05/19 Range/Units 07:58 08:18 10:33 WBC (3.8-10.6) k/uL Plt Count (150-450) k/uL Neutrophils # (Manual) (1.3-7.7) k/uL PT (9.0-12.0) sec INR (<1.2) APTT (22.0-30.0) sec ABG pH (7.35-7.45) ABG pCO2 32 L (35-45) mmHg ABG pO2 (83-108) mmHg ABG HCO3 20 L (21-25) mmol/L ABG Total CO2 (19-24) mmol/L ABG O2 Saturation (94-97) % Potassium (3.5-5.1) mmol/L Chloride (98-107) mmol/L Carbon Dioxide (22-30) mmol/L BUN (9-20) mg/dL Creatinine (0.66-1.25) mg/dL Glucose (74-99) mg/dL POC Glucose (mg/dL) 68 L 136 H (75-99) mg/dL Plasma Lactic Acid Keshav (0.7-2.0) mmol/L Calcium (8.4-10.2) mg/dL Phosphorus (2.5-4.5) mg/dL Magnesium (1.6-2.3) mg/dL Total Bilirubin (0.2-1.3) mg/dL AST (17-59) U/L ALT (21-72) U/L Alkaline Phosphatase (38-126) U/L Total Protein (6.3-8.2) g/dL Albumin (3.5-5.0) g/dL 04/05/19 04/05/19 04/05/19 Range/Units 10:43 11:58 13:10 WBC (3.8-10.6) k/uL Plt Count (150-450) k/uL Neutrophils # (Manual) (1.3-7.7) k/uL PT (9.0-12.0) sec INR (<1.2) APTT (22.0-30.0) sec ABG pH (7.35-7.45) ABG pCO2 (35-45) mmHg ABG pO2 (83-108) mmHg ABG HCO3 (21-25) mmol/L ABG Total CO2 (19-24) mmol/L ABG O2 Saturation (94-97) % Potassium (3.5-5.1) mmol/L Chloride 95 L (98-107) mmol/L Carbon Dioxide 20 L (22-30) mmol/L BUN 39 H (9-20) mg/dL Creatinine 5.65 H (0.66-1.25) mg/dL Glucose 108 H (74-99) mg/dL POC Glucose (mg/dL) 113 H (75-99) mg/dL Plasma Lactic Acid Keshav 15.0 H* (0.7-2.0) mmol/L Calcium 5.8 L* (8.4-10.2) mg/dL Phosphorus (2.5-4.5) mg/dL Magnesium (1.6-2.3) mg/dL Total Bilirubin 6.7 H (0.2-1.3) mg/dL AST >01300 H (17-59) U/L ALT >36522 H (21-72) U/L Alkaline Phosphatase 130 H (38-126) U/L Total Protein 4.2 L (6.3-8.2) g/dL Albumin 2.4 L (3.5-5.0) g/dL 04/05/19 04/05/19 04/05/19 Range/Units 16:28 16:50 19:29 WBC (3.8-10.6) k/uL Plt Count (150-450) k/uL Neutrophils # (Manual) (1.3-7.7) k/uL PT (9.0-12.0) sec INR (<1.2) APTT (22.0-30.0) sec ABG pH (7.35-7.45) ABG pCO2 (35-45) mmHg ABG pO2 (83-108) mmHg ABG HCO3 (21-25) mmol/L ABG Total CO2 (19-24) mmol/L ABG O2 Saturation (94-97) % Potassium 5.8 H (3.5-5.1) mmol/L Chloride 94 L (98-107) mmol/L Carbon Dioxide 21 L (22-30) mmol/L BUN 44 H (9-20) mg/dL Creatinine 6.01 H (0.66-1.25) mg/dL Glucose (74-99) mg/dL POC Glucose (mg/dL) 67 L 134 H (75-99) mg/dL Plasma Lactic Acid Keshav (0.7-2.0) mmol/L Calcium 6.0 L* (8.4-10.2) mg/dL Phosphorus (2.5-4.5) mg/dL Magnesium (1.6-2.3) mg/dL Total Bilirubin (0.2-1.3) mg/dL AST (17-59) U/L ALT (21-72) U/L Alkaline Phosphatase (38-126) U/L Total Protein (6.3-8.2) g/dL Albumin (3.5-5.0) g/dL Microbiology - Last 24 Hours (Table) 04/04/19 06:08 Gram Stain - Preliminary Sputum Sputum Culture - Preliminary 04/04/19 07:00 Blood Culture - Preliminary Blood No Growth after 24 hours Assessment and Plan Assessment: Status post cardiopulmonary unresponsiveness with prolonged cardiopulmonary arrest. Status post intubation. Acute respiratory failure secondary to above Anoxic brain injury Acidosis including Lactic acidosis and renal failure Acute renal failure, with hyperkalemia Markedly elevated liver enzymes and INR, liver failure myoclonic jerks of the heads Hypoglycemia, and arrival. Corrected Possible pneumonia with leukocytosis Plan: This is a 53 years old male who presents with periods of unresponsiveness, after prolonged cardiac arrest. Patient is admitted to the intensive care unit, pulmonary/critical care team consult. Neurology consult , other consultants including cardiology, nephrology following the case. Patient currently intubated and on mechanical ventilation. Continue with supportive care. Monitor glucose and change fluid to D5 normal saline, continue with monitoring sugar and labs.continue with Zosyn for possible pneumonia with leukocytosis. Labs and medication were reviewed.. Continue same treatment. Continue with symptomatic treatment. Monitor lytes and vitals. DVT and GI prophylaxis. Further recommendations of the clinical course of the patient DVT prophylaxis: No need for anticoagulation for high level of INR GI Prophylaxis: Protonix Prognosis is guarded and very poor Case was discussed with family CODE STATUS: No cold
[2019-04-06 06:45] LABS: Platelet Count 79 k/uL (150-450)
[2019-04-06] MEDS ORDERED: SODIUM CHLORIDE 0.9% 1,000 ML IV SCH (06:45)
[2019-04-06 06:51] LABS: ALT >10000 U/L (21-72); AST 14479 U/L (17-59)
[2019-04-06] MEDS ORDERED: CALCIUM GLUCONATE 2 GM in SODIUM CHLORIDE 0.9% 100 ML IVPB ONE (07:00)
[2019-04-06 07:48] LABS: ABG Base Excess 1.7 mmol/L; ABG HCO3 25 mmol/L (21-25); ABG Oxygen Saturation 93.9 % (94-97); ABG PCO2 35 mmHg (35-45); ABG PH 7.47 (7.35-7.45); ABG PO2 75 mmHg (83-108); ABG TCO2 26 mmol/L (19-24)
[2019-04-06 07:52] LABS: Band Neutrophils % 4 %; Neutrophils % (M) 88 %; Nucleated Red Blood Cells 1 /100 WBC (0-0); Total Cells Counted 200
[2019-04-06 07:53] LABS: Lymphocytes # (M) 1.06 k/uL (1.0-4.8); Monocytes # (M) 0.85 k/uL (0-1.0); WBC 21.2 k/uL (3.8-10.6)
--- NOTE | 2019-04-06 08:11 | XR ---
EXAMINATION TYPE: XR chest 1V DATE OF EXAM: 04/06/2019 COMPARISON: NONE HISTORY: Chest pain TECHNIQUE: Single frontal view of the chest is obtained. FINDINGS: Patchy infiltrate right medial lung base as well as the left lung base persists. NG tube is seen cour sing into the stomach. Endotracheal tube unchanged in position. The cardiac silhouette size is within normal limits. The osseous structures are intact. IMPRESSION: 1. Stable chest.
[2019-04-06] MEDS: PANTOPRAZOLE 40 MG/10 ML VIAL IVP SCH (09:15)
[2019-04-06] MEDS: CHLORHEXIDINE GLUCONATE 15 ML CUP MUCOUS MEM SCH (09:15)
--- NOTE | 2019-04-06 10:15 | P.PN ---
Subjective Patient is seen in follow-up for acute kidney injury. Patient was brought to the hospital by the EMS after he had a cardiac arrest. Patient's down time was near 29 minutes. Currently intubated and sedated. Patient appears to have developed an anoxic brain injury. Renal function continues to worsen. Creatinine 6.59 today. He is oliguric. Potassium level this morning was 5.2. Currently on maximum dose of Levophed and vasopressin. Vital signs: Patient is hypotensive. Currently on high-dose vasopressors. General: The patient appeared well nourished and normally developed. HEENT: Head exam is unremarkable. Neck is without jugular venous distension. Intubated. LUNGS: Breath sounds decreased. HEART: Rate and Rhythm are regular. First and second heart sounds normal. No murmurs, rubs or gallops. ABDOMEN: Abdominal exam reveals normal bowel sounds. Non-tender and non- distended. No evidence of peritonitis. EXTREMITITES: No clubbing, cyanosis, or edema. Objective - Vital Signs Vital signs: Vital Signs Temp 98.4 F 04/06/19 04:00 Pulse 114 H 04/06/19 07:00 Resp 26 H 04/06/19 07:00 BP 113/44 04/06/19 07:00 Pulse Ox 99 04/06/19 06:00 Intake & Output 04/05/19 04/06/19 04/06/19 18:59 06:59 18:59 Intake Total 2684.312 2176.454 280.661 Output Total 185 20 0 Balance 2499.312 2156.454 280.661 Weight 92.8 kg Intake: IV 2106 1933 153 Calcium Gluconate 1 gm In 100 Sodium Chloride 0.9% 100 ml @ 100 mls/hr IVPB ONCE ONE Rx#:[id number] Calcium Gluconate 2 gm In 100 Sodium Chloride 0.9% 100 ml @ 100 mls/hr IVPB ONCE ONE Rx#:[id number] Piperacillin-Tazobactam 3 200 .375 gm In Sodium Chloride 0.9% 100 ml @ 25 mls/hr IVPB Q8HR MATT Rx# :[id number] Pressure bag 6 33 3 Water For Injection, 1800 1800 150 Sterile 1,000 ml @ 150 mls/hr IV .Q7H10M MATT with Sodium Acetate 150 meq Rx#:[id number] Intake, IV Titration 578.312 243.454 127.661 Amount Calcium Gluconate 2 gm In 100 Sodium Chloride 0.9% 100 ml @ 100 mls/hr IVPB ONCE ONE Rx#:[id number] Empty Bag 1 bag @ Titrate 43.2 IV .Q6H53M MATT with Propofol 1,000 mg Rx#: [id number] Norepinephrine 32 mg In 285.612 84.346 Sodium Chloride 0.9% 218 ml @ 0.05 MCG/KG/MIN 1. 896 mls/hr IV .Q24H MATT Rx#:[id number] Propofol 1,000 mg In 100 154.608 127.661 Empty Bag 1 bag @ Titrate IV .Q0M MATT Rx#: [id number] Sodium Chloride 0.9% 50 49.5 4.5 ml @ 0.03 UNITS/MIN 4.59 mls/hr IVPB .Q11H7M MATT with Vasopressin 20 unit Rx#:[id number] Output: Gastric Drainage 150 Urine 35 20 0 Other: Voiding Method Indwelling Catheter Indwelling Catheter ABP, PAP, CO, CI - Last Documented Arterial Blood Pressure 93/75 - Labs CBC & Chem 7: 04/06/19 05:57 04/06/19 05:57 Labs: Abnormal Lab Results - Last 24 Hours (Table) 04/05/19 04/05/19 04/05/19 Range/Units 10:33 10:43 11:58 WBC (3.8-10.6) k/uL RDW (11.5-15.5) % Plt Count (150-450) k/uL Neutrophils # (Manual) (1.3-7.7) k/uL Nucleated RBCs (0-0) /100 WBC PT (9.0-12.0) sec INR (<1.2) APTT (22.0-30.0) sec ABG pH (7.35-7.45) ABG pCO2 32 L (35-45) mmHg ABG pO2 (83-108) mmHg ABG HCO3 20 L (21-25) mmol/L ABG Total CO2 (19-24) mmol/L ABG O2 Saturation (94-97) % Potassium (3.5-5.1) mmol/L Chloride (98-107) mmol/L Carbon Dioxide (22-30) mmol/L BUN (9-20) mg/dL Creatinine (0.66-1.25) mg/dL Glucose (74-99) mg/dL POC Glucose (mg/dL) 113 H (75-99) mg/dL Plasma Lactic Acid Keshav 15.0 H* (0.7-2.0) mmol/L Calcium (8.4-10.2) mg/dL Phosphorus (2.5-4.5) mg/dL Magnesium (1.6-2.3) mg/dL Total Bilirubin (0.2-1.3) mg/dL AST (17-59) U/L ALT (21-72) U/L Alkaline Phosphatase (38-126) U/L Total Protein (6.3-8.2) g/dL Albumin (3.5-5.0) g/dL 04/05/19 04/05/19 04/05/19 Range/Units 13:10 16:28 16:50 WBC (3.8-10.6) k/uL RDW (11.5-15.5) % Plt Count (150-450) k/uL Neutrophils # (Manual) (1.3-7.7) k/uL Nucleated RBCs (0-0) /100 WBC PT (9.0-12.0) sec INR (<1.2) APTT (22.0-30.0) sec ABG pH (7.35-7.45) ABG pCO2 (35-45) mmHg ABG pO2 (83-108) mmHg ABG HCO3 (21-25) mmol/L ABG Total CO2 (19-24) mmol/L ABG O2 Saturation (94-97) % Potassium (3.5-5.1) mmol/L Chloride 95 L (98-107) mmol/L Carbon Dioxide 20 L (22-30) mmol/L BUN 39 H (9-20) mg/dL Creatinine 5.65 H (0.66-1.25) mg/dL Glucose 108 H (74-99) mg/dL POC Glucose (mg/dL) 67 L 134 H (75-99) mg/dL Plasma Lactic Acid Keshav (0.7-2.0) mmol/L Calcium 5.8 L* (8.4-10.2) mg/dL Phosphorus (2.5-4.5) mg/dL Magnesium (1.6-2.3) mg/dL Total Bilirubin 6.7 H (0.2-1.3) mg/dL AST >51494 H (17-59) U/L ALT >08691 H (21-72) U/L Alkaline Phosphatase 130 H (38-126) U/L Total Protein 4.2 L (6.3-8.2) g/dL Albumin 2.4 L (3.5-5.0) g/dL 04/05/19 04/05/19 04/06/19 Range/Units 19:29 23:46 01:41 WBC (3.8-10.6) k/uL RDW (11.5-15.5) % Plt Count (150-450) k/uL Neutrophils # (Manual) (1.3-7.7) k/uL Nucleated RBCs (0-0) /100 WBC PT (9.0-12.0) sec INR (<1.2) APTT (22.0-30.0) sec ABG pH (7.35-7.45) ABG pCO2 (35-45) mmHg ABG pO2 (83-108) mmHg ABG HCO3 (21-25) mmol/L ABG Total CO2 (19-24) mmol/L ABG O2 Saturation (94-97) % Potassium 5.8 H (3.5-5.1) mmol/L Chloride 94 L 93 L (98-107) mmol/L Carbon Dioxide 21 L 21 L (22-30) mmol/L BUN 44 H 50 H (9-20) mg/dL Creatinine 6.01 H (0.66-1.25) mg/dL Glucose (74-99) mg/dL POC Glucose (mg/dL) 121 H (75-99) mg/dL Plasma Lactic Acid Keshav (0.7-2.0) mmol/L Calcium 6.0 L* 6.5 L (8.4-10.2) mg/dL Phosphorus (2.5-4.5) mg/dL Magnesium (1.6-2.3) mg/dL Total Bilirubin (0.2-1.3) mg/dL AST (17-59) U/L ALT (21-72) U/L Alkaline Phosphatase (38-126) U/L Total Protein (6.3-8.2) g/dL Albumin (3.5-5.0) g/dL 04/06/19 04/06/19 04/06/19 Range/Units 03:53 04:45 05:57 WBC 21.2 H (3.8-10.6) k/uL RDW 15.6 H (11.5-15.5) % Plt Count 79 L (150-450) k/uL Neutrophils # (Manual) 19.50 H (1.3-7.7) k/uL Nucleated RBCs 1 H (0-0) /100 WBC PT (9.0-12.0) sec INR (<1.2) APTT (22.0-30.0) sec ABG pH (7.35-7.45) ABG pCO2 (35-45) mmHg ABG pO2 (83-108) mmHg ABG HCO3 (21-25) mmol/L ABG Total CO2 (19-24) mmol/L ABG O2 Saturation (94-97) % Potassium 5.6 H (3.5-5.1) mmol/L Chloride (98-107) mmol/L Carbon Dioxide (22-30) mmol/L BUN (9-20) mg/dL Creatinine (0.66-1.25) mg/dL Glucose (74-99) mg/dL POC Glucose (mg/dL) 64 L (75-99) mg/dL Plasma Lactic Acid Keshav (0.7-2.0) mmol/L Calcium (8.4-10.2) mg/dL Phosphorus (2.5-4.5) mg/dL Magnesium (1.6-2.3) mg/dL Total Bilirubin (0.2-1.3) mg/dL AST (17-59) U/L ALT (21-72) U/L Alkaline Phosphatase (38-126) U/L Total Protein (6.3-8.2) g/dL Albumin (3.5-5.0) g/dL 04/06/19 04/06/19 04/06/19 Range/Units 05:57 05:57 07:37 WBC (3.8-10.6) k/uL RDW (11.5-15.5) % Plt Count (150-450) k/uL Neutrophils # (Manual) (1.3-7.7) k/uL Nucleated RBCs (0-0) /100 WBC PT 33.0 H (9.0-12.0) sec INR 3.4 H (<1.2) APTT 41.9 H (22.0-30.0) sec ABG pH 7.47 H (7.35-7.45) ABG pCO2 (35-45) mmHg ABG pO2 75 L (83-108) mmHg ABG HCO3 (21-25) mmol/L ABG Total CO2 26 H (19-24) mmol/L ABG O2 Saturation 93.9 L (94-97) % Potassium 5.2 H (3.5-5.1) mmol/L Chloride 88 L (98-107) mmol/L Carbon Dioxide (22-30) mmol/L BUN 52 H (9-20) mg/dL Creatinine 6.59 H (0.66-1.25) mg/dL Glucose (74-99) mg/dL POC Glucose (mg/dL) (75-99) mg/dL Plasma Lactic Acid Keshav (0.7-2.0) mmol/L Calcium 5.6 L* (8.4-10.2) mg/dL Phosphorus 8.7 H (2.5-4.5) mg/dL Magnesium 2.9 H (1.6-2.3) mg/dL Total Bilirubin 10.9 H (0.2-1.3) mg/dL AST 01923 H (17-59) U/L ALT >38345 H (21-72) U/L Alkaline Phosphatase 170 H (38-126) U/L Total Protein 4.4 L (6.3-8.2) g/dL Albumin 2.6 L (3.5-5.0) g/dL Microbiology - Last 24 Hours (Table) 04/04/19 06:08 Gram Stain - Final Sputum Sputum Culture - Final 04/04/19 07:00 Blood Culture - Preliminary Blood No Growth after 48 hours Assessment and Plan Plan: Assessment: 1. Oliguric acute kidney injury secondary to ischemic ATN secondary to cardiac arrest. Baseline creatinine is 1. It is up to 6.59 today. 2. Hyperkalemia secondary to metabolic acidosis and acute kidney injury. Better with medical management. 3. Severe metabolic acidosis secondary to acute kidney injury. Also noted to have very high lactic acid level which is due to chest compressions as well as hypotension. Better. 4. Cardiac arrest. Downtime near 29 minutes. 5. Transaminitis secondary to shock liver. 6. Hypocalcemia secondary to acute kidney injury. Corrected calcium level for albumin is 7.0. Being replaced. 7. Hypotension. Currently in a state of shock. Maintained on high-dose vasopressors. Plan: Maintain normal saline at 75 mL an hour. Lasix 80 mg IV once today. I discussed with the family the need to initiate renal replacement therapy due to worsening renal function and oliguria. However patient's overall prognosis is quite poor. He is also hemodynamically very unstable and may not be able to tolerate dialysis at this time. Family is agreeable to hold for now. I will repeat electrolytes this evening and continue to assess on a daily basis.
--- NOTE | 2019-04-06 11:41 | CT ---
EXAMINATION TYPE: CT brain wo con DATE OF EXAM: 04/06/2019 COMPARISON: 04/04/2019 INDICATION: Unresponsive, overdose DLP: 1017.4 mGycm, Automated exposure control for dose reduction was used. CONTRAST: None CT of the brain is performed utilizing 3 mm thick sections through the posterior fossa and 3 mm thick sections through the remaining calvarium. Study is performed within 24 hours of arrival to the hosp [facility]. No abnormal hyperdensity is present to suggest an acute intracranial hemorrhage. No mass lesion is evident. No acute infarcts are evident. There is loss of the nicholson-white matter differentiation. This is dimini shed compared to 04/04/2019. Anoxic injury could have this appearance. Ventricles are appropriate for the patient age. There may be effacement of the temporal horns latera l ventricles. There is effacement of sulci through the parietal and occipital lobes. Paranasal sinuses and mastoid air cells within the [id number] are clear. Fluid is within the nasal passages which can be related to intubation. IMPRESSIONS: 1. Loss of the nicholson-white matter differentiation through the parietal and occipital lobes and dimin ished within the frontal regions. There is a developing effacement of the sulci. Findings can be rela jordan to prior anoxic injury.
[2019-04-06] MEDS ORDERED: FUROSEMIDE 10 MG/ML 10 ML VIAL IV STA (12:07)
[2019-04-06 12:17] LABS: Glucose,Whole Blood 36 mg/dL (75-99)
--- NOTE | 2019-04-06 12:27 | P.PN ---
Subjective Progress Note Date: 04/06/19 Principal diagnosis: Acute cardiac pulmonary arrest secondary to drug use in the form of opiate/methadone. Ghassan is a 33-year-old gentleman with a history of opiate abuse and a history of cardiac arrest due to torsades in 2013 or 2014. Patient is brought to the ER today via EMS from a [facility] facility where they were dispatched for an unresponsive person. Per the nurse at [facility] they were notified by the patient's roommate that the patient seemed to be sleepy and that the roommate noticed that he was no longer breathing and started CPR, room 8 reported that he did CPR for approximately 5 minutes before deciding to go alert staff at which time they responded and found the patient cold, cyanotic and pulseless. They began CPR and also administered 3 doses of intranasal Narcan with no response. EMS reports that they arrived on scene to find the patient cold cyanotic pulseless. CPR was initiated using the Kimo device for continuous compressions, patient was intubated with a 7.5 tube, IV access was obtained and patient was found to have a blood glucose of only 29. In addition to 3 rounds of epinephrine patient was given an amp of D50. Return of spontaneous circulation was obtained and the patient was transported to the emergency department for further evaluation. Currently the patient is in the intensive care unit. He was unable to get hold of the EMS run sheet and I'm not sure of the exact downtime. Nevertheless, based on this presentation, the patient seems to have a prolonged downtime. The patient is currently intubated on a mechanical ventilator. Unresponsive. He is having some myoclonic jerks. Pupils are about 3-4 mm in size, sluggish and nonreactive. No corneal reflex. He has a positive breathing reflex and cough. On and off she jerks and he has some myoclonic activity. He is on a mechanical ventilator. He is in shock and he is on high-dose norepinephrine infusion running at 90 g per minute. His most recent systolic blood pressure was in the mid 90s. Based on that, I inserted an art line catheter for hemodynamic monitoring. Blood gases this point shows a pH of 6.9 with a pCO2 of 35 and a pO2 of 98. This was done and the patient is currently on a VC plus mode with a tidal volume of 600 and the rate of 26 and FiO2 of 80% with a PEEP of 5. The patient is also on D5 normal saline today to 200 mL an hour. Urine output has been only 30 mL since he came from the emergency department. His potassium level is improving as it was as high as 7.9 is currently down to 6.6. Serum bicarb is 14. Lactic acid level was 12.6 currently 11.1. LFTs abnormal consistent with shock liver. AST is 8613, ALT is 8246, troponin max is 1.4, lipase is 684, a urine drug screen is positive for opiates, white cell count is at 23.4. Hemoglobin is at 15.6. CAT scan of the brain showed no acute abnormalities. Chest x-ray showing asymmetric right-sided edema versus pneumonia. The patient has an ET tube in place which is quite elevated around 5 cm above the jose. Patient was reevaluated today on 04/05/2019, remains on mechanical ventilation, and his ventilator settings are assist control rate of 26, tidal volume of 550, PEEP of 10, FiO2 is 80%. Patient remains on propofol, norepinephrine maximized, vasopressin maximized. His peak airway pressure is 28, plateau pressure is 22, patient has extremely poor urine output, remains on propofol, not requiring any Nimbex. Family is at bedside, and they were updated on his poor condition. Patient remains unresponsive to any stimuli. He has some cough reflex upon suctioning only. Pupils are not reactive to light. And patient has no corneal reflex. Patient was seen by neurology yesterday, and felt that the patient had significant and profound anoxic brain injury. Family is very well aware of his condition. Chest x-ray shows bibasilar infiltrates. ABG this morning showed a pO2 of 95 pCO2 of 32 pH of 7.40 his lactic acid remains elevated, patient remains on sodium bicarb drip. WBC count is 32.7 hemoglobin is 15.4. Potassium 6.3 BUN is 34 creatinine 5.01. His acute kidney injury is being addressed by nephrology. Liver enzymes were also noted to be extremely elevated including elevated AST ALT, consistent with acute shock liver Patient was reevaluated today on 04/06/2019, remains on mechanical ventilation, his ventilator settings are unchanged compared to yesterday, FiO2 has been cut down to 70%, tidal volume remains at 550, PEEP is at 10, ABG showed a pO2 of 75 pCO2 of 35 pH of 7.47. Chest x-ray continues to show by basilar infiltrates. WBC count 21.2 hemoglobin is 14.2. Renal profile in the upper is worsening. Patient is off all sedation, he is today unresponsive to any stimuli. He has occasional myoclonic jerks, he has no gag reflex, no cough reflex, patient was taken briefly off mechanical ventilation, and he is apneic. Patient has no corneal reflex, negative doll's eyes, negative caloric reflex, however the patie nt was on propofol until half an hour before my evaluation. He is yet to be seen by neurology today, I believe we may be dealing with a situation of brain , and the protocol will likely be initiated by neurology when he gets evaluated today. His CT of the brain showed loss of the nicholson-white matter differentiation through the parietal and occipital lobes and diminished within the frontal region there is developing effacement of the sulci, consistent with anoxic brain injury. Family was updated on his condition, and will await further input from the neurologist who will be seeing the patient today. I even touch bases with the family regarding his previously expressed wishes regarding organ donation, and apparently he is. Doubt if the patient qualifies for any organ donation, but this is to consider once we proceed with terminal weaning. Continues to have worsening renal function and liver function, he is oliguric. Patient is maximized on vasopressin and levo fed. Objective - Vital Signs Vital signs: Vital Signs Temp 98.4 F 04/06/19 04:00 Pulse 114 H 04/06/19 07:00 Resp 26 H 04/06/19 07:00 BP 113/44 04/06/19 07:00 Pulse Ox 99 04/06/19 06:00 Intake & Output 04/05/19 04/06/19 04/06/19 18:59 06:59 18:59 Intake Total 2684.312 2176.454 795.661 Output Total 185 20 10 Balance 2499.312 2156.454 785.661 Weight 92.8 kg Intake: IV 2106 1933 368 Calcium Gluconate 1 gm In 100 Sodium Chloride 0.9% 100 ml @ 100 mls/hr IVPB ONCE ONE Rx#:[id number] Calcium Gluconate 2 gm In 100 100 Sodium Chloride 0.9% 100 ml @ 100 mls/hr IVPB ONCE ONE Rx#:[id number] Piperacillin-Tazobactam 3 200 100 .375 gm In Sodium Chloride 0.9% 100 ml @ 25 mls/hr IVPB Q8HR MATT Rx# :[id number] Pressure bag 6 33 18 Water For Injection, 1800 1800 150 Sterile 1,000 ml @ 150 mls/hr IV .Q7H10M MATT with Sodium Acetate 150 meq Rx#:[id number] Intake, IV Titration 578.312 243.454 427.661 Amount Calcium Gluconate 2 gm In 100 Sodium Chloride 0.9% 100 ml @ 100 mls/hr IVPB ONCE ONE Rx#:[id number] Empty Bag 1 bag @ Titrate 43.2 IV .Q6H53M MATT with Propofol 1,000 mg Rx#: [id number] Norepinephrine 32 mg In 285.612 84.346 Sodium Chloride 0.9% 218 ml @ 0.05 MCG/KG/MIN 1. 896 mls/hr IV .Q24H MATT Rx#:[id number] Propofol 1,000 mg In 100 154.608 127.661 Empty Bag 1 bag @ Titrate IV .Q0M MATT Rx#: [id number] Sodium Chloride 0.9% 1, 300 000 ml @ 75 mls/hr IV . [id number] MATT Rx#:[id number] Sodium Chloride 0.9% 50 49.5 4.5 ml @ 0.03 UNITS/MIN 4.59 mls/hr IVPB .Q11H7M MATT with Vasopressin 20 unit Rx#:[id number] Output: Gastric Drainage 150 Urine 35 20 10 Other: Voiding Method Indwelling Catheter Indwelling Catheter ABP, PAP, CO, CI - Last Documented Arterial Blood Pressure 93/75 - Exam Physical exam revealed a 33-year-old white male on mechanical ventilation, in no distress. Unresponsive to any stimuli. Head exam atraumatic, normocephalic. ENT: Pupils are not reactive, negative corneal reflex, negative caloric reflex, negative doll's eyes, no gag or cough reflex noted even with suctioning. Neck : Supple, no neck masses, no JVD. Endotracheal tube and orogastric tube are intact. Lungs diminished breath sounds at the bases no crackles or rhonchi or wheezes. Cardiac exam revealed normal S1 and S2, no S3 gallop. No murmur. Abdominal exam revealed soft nontender no megaly no rebound no guarding, positive bowel sounds. Extremities no clubbing edema or cyanosis, diminished distal pulses bilaterally. Examination of the skin no rashes, no areas of erythema noted Neurologically the patient is unresponsive. As noted above, patient has no corneal reflex, no pupillary reflex, no corneal reflex, no gag reflex, no cough reflex, negative caloric reflex. - Labs CBC & Chem 7: 04/06/19 05:57 04/06/19 05:57 Labs: Abnormal Lab Results - Last 24 Hours (Table) 04/05/19 04/05/19 04/05/19 Range/Units 13:10 16:28 16:50 WBC (3.8-10.6) k/uL RDW (11.5-15.5) % Plt Count (150-450) k/uL Neutrophils # (Manual) (1.3-7.7) k/uL Nucleated RBCs (0-0) /100 WBC PT (9.0-12.0) sec INR (<1.2) APTT (22.0-30.0) sec ABG pH (7.35-7.45) ABG pO2 (83-108) mmHg ABG Total CO2 (19-24) mmol/L ABG O2 Saturation (94-97) % Potassium (3.5-5.1) mmol/L Chloride 95 L (98-107) mmol/L Carbon Dioxide 20 L (22-30) mmol/L BUN 39 H (9-20) mg/dL Creatinine 5.65 H (0.66-1.25) mg/dL Glucose 108 H (74-99) mg/dL POC Glucose (mg/dL) 67 L 134 H (75-99) mg/dL Calcium 5.8 L* (8.4-10.2) mg/dL Phosphorus (2.5-4.5) mg/dL Magnesium (1.6-2.3) mg/dL Total Bilirubin 6.7 H (0.2-1.3) mg/dL AST >40116 H (17-59) U/L ALT >03110 H (21-72) U/L Alkaline Phosphatase 130 H (38-126) U/L Total Protein 4.2 L (6.3-8.2) g/dL Albumin 2.4 L (3.5-5.0) g/dL 04/05/19 04/05/19 04/06/19 Range/Units 19: 23:46 01:41 WBC (3.8-10.6) k/uL RDW (11.5-15.5) % Plt Count (150-450) k/uL Neutrophils # (Manual) (1.3-7.7) k/uL Nucleated RBCs (0-0) /100 WBC PT (9.0-12.0) sec INR (<1.2) APTT (22.0-30.0) sec ABG pH (7.35-7.45) ABG pO2 (83-108) mmHg ABG Total CO2 (19-24) mmol/L ABG O2 Saturation (94-97) % Potassium 5.8 H (3.5-5.1) mmol/L Chloride 94 L 93 L (98-107) mmol/L Carbon Dioxide 21 L 21 L (22-30) mmol/L BUN 44 H 50 H (9-20) mg/dL Creatinine 6.01 H (0.66-1.25) mg/dL Glucose (74-99) mg/dL POC Glucose (mg/dL) 121 H (75-99) mg/dL Calcium 6.0 L* 6.5 L (8.4-10.2) mg/dL Phosphorus (2.5-4.5) mg/dL Magnesium (1.6-2.3) mg/dL Total Bilirubin (0.2-1.3) mg/dL AST (17-59) U/L ALT (21-72) U/L Alkaline Phosphatase (38-126) U/L Total Protein (6.3-8.2) g/dL Albumin (3.5-5.0) g/dL 04/06/19 04/06/19 04/06/19 Range/Units 03:53 04:45 05:57 WBC 21.2 H (3.8-10.6) k/uL RDW 15.6 H (11.5-15.5) % Plt Count 79 L (150-450) k/uL Neutrophils # (Manual) 19.50 H (1.3-7.7) k/uL Nucleated RBCs 1 H (0-0) /100 WBC PT (9.0-12.0) sec INR (<1.2) APTT (22.0-30.0) sec ABG pH (7.35-7.45) ABG pO2 (83-108) mmHg ABG Total CO2 (19-24) mmol/L ABG O2 Saturation (94-97) % Potassium 5.6 H (3.5-5.1) mmol/L Chloride (98-107) mmol/L Carbon Dioxide (22-30) mmol/L BUN (9-20) mg/dL Creatinine (0.66-1.25) mg/dL Glucose (74-99) mg/dL POC Glucose (mg/dL) 64 L (75-99) mg/dL Calcium (8.4-10.2) mg/dL Phosphorus (2.5-4.5) mg/dL Magnesium (1.6-2.3) mg/dL Total Bilirubin (0.2-1.3) mg/dL AST (17-59) U/L ALT (21-72) U/L Alkaline Phosphatase (38-126) U/L Total Protein (6.3-8.2) g/dL Albumin (3.5-5.0) g/dL 04/06/19 04/06/19 04/06/19 Range/Units 05:57 05:57 07:37 WBC (3.8-10.6) k/uL RDW (11.5-15.5) % Plt Count (150-450) k/uL Neutrophils # (Manual) (1.3-7.7) k/uL Nucleated RBCs (0-0) /100 WBC PT 33.0 H (9.0-12.0) sec INR 3.4 H (<1.2) APTT 41.9 H (22.0-30.0) sec ABG pH 7.47 H (7.35-7.45) ABG pO2 75 L (83-108) mmHg ABG Total CO2 26 H (19-24) mmol/L ABG O2 Saturation 93.9 L (94-97) % Potassium 5.2 H (3.5-5.1) mmol/L Chloride 88 L (98-107) mmol/L Carbon Dioxide (22-30) mmol/L BUN 52 H (9-20) mg/dL Creatinine 6.59 H (0.66-1.25) mg/dL Glucose (74-99) mg/dL POC Glucose (mg/dL) (75-99) mg/dL Calcium 5.6 L* (8.4-10.2) mg/dL Phosphorus 8.7 H (2.5-4.5) mg/dL Magnesium 2.9 H (1.6-2.3) mg/dL Total Bilirubin 10.9 H (0.2-1.3) mg/dL AST 30451 H (17-59) U/L ALT >37804 H (21-72) U/L Alkaline Phosphatase 170 H (38-126) U/L Total Protein 4.4 L (6.3-8.2) g/dL Albumin 2.6 L (3.5-5.0) g/dL Microbiology - Last 24 Hours (Table) 04/04/19 06:08 Gram Stain - Final Sputum Sputum Culture - Final 04/04/19 07:00 Blood Culture - Preliminary Blood No Growth after 48 hours Assessment and Plan Assessment: Impression: 1 acute cardiopulmonary arrest, most likely related to drug overdose. Patient had a prolonged downtime, hence we strongly suspect that we may be dealing with anoxic brain injury. May have to consider initiating brain protocol once the patient is off sedation for the next 12 hours. He was on propofol until an hour before my evaluation. 2 multiple system organ failure secondary to cardiopulmonary arrest. 3 myoclonic jerks secondary to hypoxic encephalopathy 4 acute hypoxic respiratory failure secondary to cardiopulmonary arrest 5 severe lactic acidosis secondary to poor perfusion 6 acute kidney injury with hyperkalemia secondary to above. 7 elevated troponin secondary to cardiac arrest and CPR 8 history of substance abuse 9 shock liver 10 intermittent episodes of hypoglycemia being addressed accordingly. 11 possible brain based on the findings today. However the patient is yet to be seen by neurology to have full neurological evaluation. And to have the CT of the brain reviewed again by neurology today. Recommendation: Continue present supportive care measures including ventilatory support, hemodynamic support, GI and DVT prophylaxis, sodium bicarb drip, empiric antibiotics, nutritional support, had a long discussion with family today, they are willing to consider terminal weaning however, if the neurologist initiates brain protocol, mechanical ventilation will be discontinued once this is confirmed by the neurologist later today. Family expressed previously expressed wishes of the patient that he would like to be an organ donor and this will be addressed accordingly. May have to notify the organ film sound coordinator, later today. Critical care time is 45 minutes not including the time spent on procedures. Time with Patient: Greater than 30
[2019-04-06] MEDS: DEXTROSE 50% SYRINGE 50 ML IVP STA ×2 (12:34→16:22)
--- NOTE | 2019-04-06 12:37 | P.PN ---
Subjective Progress Note Date: 04/06/19 Patient clinically unchanged. Patient is off sedation since 9 AM, her last 4 hours now. No seizure-like activity has been noticed. Patient continues to be deeply comatose, not responding to calling his name, deep pain. Malaise. Pupils are about 3 mm, not reactive. Corneals are absent, oculocephalics absent. No gag or cough. No response to painful stimuli. Reflexes are trace at the knees, sustained clonus on the right, and plantars are flat. Objective - Vital Signs Vital signs: Vital Signs Temp 98.4 F 04/06/19 04:00 Pulse 114 H 04/06/19 07:00 Resp 26 H 04/06/19 07:00 BP 113/44 04/06/19 07:00 Pulse Ox 99 04/06/19 06:00 Intake & Output 04/05/19 04/06/19 04/06/19 18:59 06:59 18:59 Intake Total 2684.312 2176.454 795.661 Output Total 185 20 10 Balance 2499.312 2156.454 785.661 Weight 92.8 kg Intake: IV 2106 1933 368 Calcium Gluconate 1 gm In 100 Sodium Chloride 0.9% 100 ml @ 100 mls/hr IVPB ONCE ONE Rx#:[id number] Calcium Gluconate 2 gm In 100 100 Sodium Chloride 0.9% 100 ml @ 100 mls/hr IVPB ONCE ONE Rx#:[id number] Piperacillin-Tazobactam 3 200 100 .375 gm In Sodium Chloride 0.9% 100 ml @ 25 mls/hr IVPB Q8HR MATT Rx# :[id number] Pressure bag 6 33 18 Water For Injection, 1800 1800 150 Sterile 1,000 ml @ 150 mls/hr IV .Q7H10M MATT with Sodium Acetate 150 meq Rx#:[id number] Intake, IV Titration 578.312 243.454 427.661 Amount Calcium Gluconate 2 gm In 100 Sodium Chloride 0.9% 100 ml @ 100 mls/hr IVPB ONCE ONE Rx#:[id number] Empty Bag 1 bag @ Titrate 43.2 IV .Q6H53M MATT with Propofol 1,000 mg Rx#: [id number] Norepinephrine 32 mg In 285.612 84.346 Sodium Chloride 0.9% 218 ml @ 0.05 MCG/KG/MIN 1. 896 mls/hr IV .Q24H MATT Rx#:[id number] Propofol 1,000 mg In 100 154.608 127.661 Empty Bag 1 bag @ Titrate IV .Q0M MATT Rx#: [id number] Sodium Chloride 0.9% 1, 300 000 ml @ 75 mls/hr IV . [id number] MATT Rx#:[id number] Sodium Chloride 0.9% 50 49.5 4.5 ml @ 0.03 UNITS/MIN 4.59 mls/hr IVPB .Q11H7M MATT with Vasopressin 20 unit Rx#:[id number] Output: Gastric Drainage 150 Urine 35 20 10 Other: Voiding Method Indwelling Catheter Indwelling Catheter ABP, PAP, CO, CI - Last Documented Arterial Blood Pressure 93/75 - Exam Patient is deeply comatose, not responding to any vocal or painful commands. Patient has no cough, no gag. Pupils are about 3 mm, not reacting to light. Corneals absent, oculocephalics absent. Reflexes are trace in the upper, trace to 1 at the knees, patient has sustained clonus on the right, but no clonus on the left. Plantars are flat bilaterally. - Labs CBC & Chem 7: 04/06/19 05:57 04/06/19 05:57 Labs: Abnormal Lab Results - Last 24 Hours (Table) 04/05/19 04/05/19 04/05/19 Range/Units 13:10 16:28 16:50 WBC (3.8-10.6) k/uL RDW (11.5-15.5) % Plt Count (150-450) k/uL Neutrophils # (Manual) (1.3-7.7) k/uL Nucleated RBCs (0-0) /100 WBC PT (9.0-12.0) sec INR (<1.2) APTT (22.0-30.0) sec ABG pH (7.35-7.45) ABG pO2 (83-108) mmHg ABG Total CO2 (19-24) mmol/L ABG O2 Saturation (94-97) % Potassium (3.5-5.1) mmol/L Chloride 95 L (98-107) mmol/L Carbon Dioxide 20 L (22-30) mmol/L BUN 39 H (9-20) mg/dL Creatinine 5.65 H (0.66-1.25) mg/dL Glucose 108 H (74-99) mg/dL POC Glucose (mg/dL) 67 L 134 H (75-99) mg/dL Calcium 5.8 L* (8.4-10.2) mg/dL Phosphorus (2.5-4.5) mg/dL Magnesium (1.6-2.3) mg/dL Total Bilirubin 6.7 H (0.2-1.3) mg/dL AST >77547 H (17-59) U/L ALT >40444 H (21-72) U/L Alkaline Phosphatase 130 H (38-126) U/L Total Protein 4.2 L (6.3-8.2) g/dL Albumin 2.4 L (3.5-5.0) g/dL 04/05/19 04/05/19 04/06/19 Range/Units 19:29 23:46 01:41 WBC (3.8-10.6) k/uL RDW (11.5-15.5) % Plt Count (150-450) k/uL Neutrophils # (Manual) (1.3-7.7) k/uL Nucleated RBCs (0-0) /100 WBC PT (9.0-12.0) sec INR (<1.2) APTT (22.0-30.0) sec ABG pH (7.35-7.45) ABG pO2 (83-108) mmHg ABG Total CO2 (19-24) mmol/L ABG O2 Saturation (94-97) % Potassium 5.8 H (3.5-5.1) mmol/L Chloride 94 L 93 L (98-107) mmol/L Carbon Dioxide 21 L 21 L (22-30) mmol/L BUN 44 H 50 H (9-20) mg/dL Creatinine 6.01 H (0.66-1.25) mg/dL Glucose (74-99) mg/dL POC Glucose (mg/dL) 121 H (75-99) mg/dL Calcium 6.0 L* 6.5 L (8.4-10.2) mg/dL Phosphorus (2.5-4.5) mg/dL Magnesium (1.6-2.3) mg/dL Total Bilirubin (0.2-1.3) mg/dL AST (17-59) U/L ALT (21-72) U/L Alkaline Phosphatase (38-126) U/L Total Protein (6.3-8.2) g/dL Albumin (3.5-5.0) g/dL 04/06/19 04/06/19 04/06/19 Range/Units 03:53 04:45 05:57 WBC 21.2 H (3.8-10.6) k/uL RDW 15.6 H (11.5-15.5) % Plt Count 79 L (150-450) k/uL Neutrophils # (Manual) 19.50 H (1.3-7.7) k/uL Nucleated RBCs 1 H (0-0) /100 WBC PT (9.0-12.0) sec INR (<1.2) APTT (22.0-30.0) sec ABG pH (7.35-7.45) ABG pO2 (83-108) mmHg ABG Total CO2 (19-24) mmol/L ABG O2 Saturation (94-97) % Potassium 5.6 H (3.5-5.1) mmol/L Chloride (98-107) mmol/L Carbon Dioxide (22-30) mmol/L BUN (9-20) mg/dL Creatinine (0.66-1.25) mg/dL Glucose (74-99) mg/dL POC Glucose (mg/dL) 64 L (75-99) mg/dL Calcium (8.4-10.2) mg/dL Phosphorus (2.5-4.5) mg/dL Magnesium (1.6-2.3) mg/dL Total Bilirubin (0.2-1.3) mg/dL AST (17-59) U/L ALT (21-72) U/L Alkaline Phosphatase (38-126) U/L Total Protein (6.3-8.2) g/dL Albumin (3.5-5.0) g/dL 04/06/19 04/06/19 04/06/19 Range/Units 05:57 05:57 07:37 WBC (3.8-10.6) k/uL RDW (11.5-15.5) % Plt Count (150-450) k/uL Neutrophils # (Manual) (1.3-7.7) k/uL Nucleated RBCs (0-0) /100 WBC PT 33.0 H (9.0-12.0) sec INR 3.4 H (<1.2) APTT 41.9 H (22.0-30.0) sec ABG pH 7.47 H (7.35-7.45) ABG pO2 75 L (83-108) mmHg ABG Total CO2 26 H (19-24) mmol/L ABG O2 Saturation 93.9 L (94-97) % Potassium 5.2 H (3.5-5.1) mmol/L Chloride 88 L (98-107) mmol/L Carbon Dioxide (22-30) mmol/L BUN 52 H (9-20) mg/dL Creatinine 6.59 H (0.66-1.25) mg/dL Glucose (74-99) mg/dL POC Glucose (mg/dL) (75-99) mg/dL Calcium 5.6 L* (8.4-10.2) mg/dL Phosphorus 8.7 H (2.5-4.5) mg/dL Magnesium 2.9 H (1.6-2.3) mg/dL Total Bilirubin 10.9 H (0.2-1.3) mg/dL AST 98614 H (17-59) U/L ALT >67023 H (21-72) U/L Alkaline Phosphatase 170 H (38-126) U/L Total Protein 4.4 L (6.3-8.2) g/dL Albumin 2.6 L (3.5-5.0) g/dL 04/06/19 Range/Units 12:16 WBC (3.8-10.6) k/uL RDW (11.5-15.5) % Plt Count (150-450) k/uL Neutrophils # (Manual) (1.3-7.7) k/uL Nucleated RBCs (0-0) /100 WBC PT (9.0-12.0) sec INR (<1.2) APTT (22.0-30.0) sec ABG pH (7.35-7.45) ABG pO2 (83-108) mmHg ABG Total CO2 (19-24) mmol/L ABG O2 Saturation (94-97) % Potassium (3.5-5.1) mmol/L Chloride (98-107) mmol/L Carbon Dioxide (22-30) mmol/L BUN (9-20) mg/dL Creatinine (0.66-1.25) mg/dL Glucose (74-99) mg/dL POC Glucose (mg/dL) 36 L (75-99) mg/dL Calcium (8.4-10.2) mg/dL Phosphorus (2.5-4.5) mg/dL Magnesium (1.6-2.3) mg/dL Total Bilirubin (0.2-1.3) mg/dL AST (17-59) U/L ALT (21-72) U/L Alkaline Phosphatase (38-126) U/L Total Protein (6.3-8.2) g/dL Albumin (3.5-5.0) g/dL Microbiology - Last 24 Hours (Table) 04/04/19 06:08 Gram Stain - Final Sputum Sputum Culture - Final 04/04/19 07:00 Blood Culture - Preliminary Blood No Growth after 48 hours Assessment and Plan Assessment: * Cardiac arrest, with prolonged down time of about 29 minutes. * Patient with severe anoxic encephalopathy. * Probable drug overdose. * History of substance abuse, currently was in rehabilitation. * Previous history of cardiac arrest in 2013 * Multiorgan failure, with acute kidney injury, shock liver, elevated troponins. Plan: * Overall prognosis appears poor based upon the extent of the downtime, current neurological examination (48 hours postarrest), EEG findings, computed tomography scan of the head, and evidence of multiorgan dysfunction. * Patient's EEG showed severely abnormal EEG due to severe background slowing, and background suppression, which at times appears isoelectric. This is suggestive of generalized cerebral dysfunction, related to patient's history of cardiac arrest, with possible anoxic encephalopathy. No epileptiform activity seen. * Your medical management. * Repeat computed tomography scan of the head 04/06/2019 showed loss of nicholson- white matter differentiation through the parietal and occipital lobes and diminished within the frontal regions. There is developing effacement of the sulci. Findings can be related to prior anoxic injury. On my review, there is hypodensity in bilateral putamen also, consistent with ischemia due to hypoxia. * Discussed with family members in detail
[2019-04-06 12:40] LABS: Glucose,Whole Blood 105 mg/dL (75-99)
--- NOTE | 2019-04-06 13:26 | PCN ---
PROCEDURE NOTE OPERATIVE REPORT: Placement of a right brachial arterial line. PREOPERATIVE DIAGNOSES: Acute respiratory failure, anoxic brain injury, hypotension. POSTOPERATIVE DIAGNOSES: Acute respiratory failure, anoxic brain injury, hypotension. ANESTHESIA USED: None deployed. PROCEDURE: The right brachial region was prepared in a sterile fashion and drapes were applied. The right brachial artery was palpated, easily cannulated, and a guidewire was placed. A Cook'S catheter was inserted over the guidewire, and the guidewire was removed. Good blood flow and good waveform were noted. The line was secured using 3.0 silk sutures. Procedure was well tolerated. No evidence of any complications. MMODL / IJN: [id number] /
[2019-04-06 14:09] LABS: Glucose,Whole Blood 73 mg/dL (75-99)
[2019-04-06] MEDS: SODIUM CHLORIDE 0.9% 50 ML with VASOPRESSIN 20 UNIT IVPB SCH ×2 (15:58)
[2019-04-06 16:20] LABS: Glucose,Whole Blood 63 mg/dL (75-99)
[2019-04-06 16:25] VITALS: TEMP 100.6
--- NOTE | 2019-04-06 16:28 | P.PN ---
Subjective This is a 53 years old male with past medical history of substance abuse, heroin overdose in 2014, previous history of cardiac arrest, IV drug abuse, bipolar and depression, fentanyl overdose. He was recently discharged from hospital about one month ago for fentanyl overdose, and that time he has chest pain and abnormal stress test. However he had a normal cardiac angiogram and his been evaluated by broadcast program director. Also patient has been evaluated by psychiatrist off found him no need for psychiatrist admission.pt could not provide information and it was taken from staff and medical records as well as the staff at bed side. Patient was brought from [place] [facility] facility for being unresponsive, when his roommate noticed that he was not breathing, and he did cardiopulmonary resuscitation for approximately 5 minutes, then he alerted the staff , who found the patient called, symmetric and pulseless. CPR was re- initiated , he got 3 doses of intranasal Narcan with no response. EMS arrived to the scene, patient got intubated, IV access was obtained and blood glucose was 29. D50 was given as well as 3 rounds of epinephrine, eventually patient's circulation returned and patient was transported to the emergency room. On arrival patient was unresponsive, he was intubated, he has some twitching movements in his head, there was no coronary flexor, no gag reflex no Babinski reflex. Right femoral line was placed and family were contacted. Family were at bedside, including mother and brother and grandfather. As per his brother, last time his been seen about 2 weeks ago and he wasn't complaining from medical problems, other than some abdominal hernia and he stated for the last 2 weeks he is been in [place] for rehab. INR 2.9, ABG showing PH less than 7. Oxygen PO2 288 and pCO2 44. His potassium 7.9, creatinine 2.7, glucose 47 after D50 went up to 112, plus the lactic acid 12.6, liver enzymes more than 45,000, t roponin 0.15, amylase 199, lipase 684, urine drug screen is positive for methadone . Brain CT: No acute process. Chest x-ray showing right pulmonary edema versus pneumonia per radiologist's report. EKG showing normal sinus rhythm at 74. Patient is already on normal saline at 200 L/h. 04/05/2019 The patient remains in the ICU intubated and sedated. He has episodes of low blood sugar being corrected by D50 injections. He is on epinephrine and propofol. No more myoclonic jerks as noted, no seizure-like activity. Labs showing significant abnormality including leukocytosis at 30 2.7K, creatinine 6.0, potassium at 5.8. INR 4.4. Liver enzymes are significantly elevated more than 10,000, patient is being followed closely by several consultants including pulmonary/critical care, neurologist, broadcast program director, warp knitter. EEG showing generalized cerebral dysfunction related to his anoxic brain injury. P[employer] And [employer]enc[employer] Dipper recommended CT of the brain to monitor his cerebral edema. [employer]pper were considering replacement therapy. His prognosis remains very poor. I discussed the case with the father at bedside and he told me he does not want his son to be like this for long time if there is no signs of improvement. CODE STATUS was changed by the family to no code with the critical care team. 04/06/2019 Patients in the ICU intubated and sedated. Patient blood pressure in the both sides and normal saline was started at 75 L/h. WBC is coming down slightly to 20 1K, hemoglobin is stable, platelet 72. Acidosis improving with pH 7.4. Potassium 5.2 creatinine 6.59, warp knitter recommended renal replacement therapy with his oliguria, however after discussion with the family they wanted to hold on this now as patient might not tolerate it as well. Liver enzymes trending down gradually with INR 3.4, culture are negative so far. Brain CT showing loss of nicholson white matter differentiated and the parietal and occipital lobes and diminished within the frontal lobes, findings consistent with anoxic brain injury. Chest x-ray is stable. Patient is been followed by several co nsultants, including the critical care, warp knitter, neurologist, and broadcast program director. review of systems: Not applicable Medication: norepinephrine drip, Protonix 40 mg, Zosyn 3.375 g, propofol 100 mL, vasopressin 20 units, several injection of D50, calcium carbonate 2 g, Objective - Vital Signs Vital signs: Vital Signs Temp 97.3 F L 04/06/19 12:20 Pulse 130 H 04/06/19 15:30 Resp 26 H 04/06/19 15:30 BP 97/46 04/06/19 15:30 Pulse Ox 99 04/06/19 06:00 Intake & Output 04/05/19 04/06/19 04/06/19 18:59 06:59 18:59 Intake Total 2684.312 2176.454 1627.661 Output Total 185 20 10 Balance 2499.312 2156.454 1617.661 Weight 92.8 kg Intake: IV 2106 1933 650 Calcium Gluconate 1 gm In 100 Sodium Chloride 0.9% 100 ml @ 100 mls/hr IVPB ONCE ONE Rx#:[id number] Calcium Gluconate 2 gm In 100 100 Sodium Chloride 0.9% 100 ml @ 100 mls/hr IVPB ONCE ONE Rx#:[id number] Piperacillin-Tazobactam 3 200 200 .375 gm In Sodium Chloride 0.9% 100 ml @ 25 mls/hr IVPB Q8HR MATT Rx# :[id number] Pressure bag 6 33 30 Water For Injection, 1800 1800 150 Sterile 1,000 ml @ 150 mls/hr IV .Q7H10M MATT with Sodium Acetate 150 meq Rx#:[id number] d5w 170 Intake, IV Titration 578.312 243.454 977.661 Amount Calcium Gluconate 2 gm In 100 Sodium Chloride 0.9% 100 ml @ 100 mls/hr IVPB ONCE ONE Rx#:[id number] Empty Bag 1 bag @ Titrate 43.2 IV .Q6H53M MATT with Propofol 1,000 mg Rx#: [id number] Norepinephrine 32 mg In 285.612 84.346 250 Sodium Chloride 0.9% 218 ml @ 0.05 MCG/KG/MIN 1. 896 mls/hr IV .Q24H MATT Rx#:[id number] Propofol 1,000 mg In 100 154.608 127.661 Empty Bag 1 bag @ Titrate IV .Q0M MATT Rx#: [id number] Sodium Chloride 0.9% 1, 600 000 ml @ 75 mls/hr IV . [id number] MATT Rx#:[id number] Sodium Chloride 0.9% 50 49.5 4.5 ml @ 0.03 UNITS/MIN 4.59 mls/hr IVPB .Q11H7M MATT with Vasopressin 20 unit Rx#:[id number] Output: Gastric Drainage 150 Urine 35 20 10 Other: Voiding Method Indwelling Catheter Indwelling Catheter Indwelling Catheter ABP, PAP, CO, CI - Last Documented Arterial Blood Pressure 78/46 - Exam GENERAL: Intubated, unresponsive. HEENT: Pupils are round and fixed. corneal flex and gag reflexes were absent. EOMI. No scleral icterus. No conjunctival pallor. Normocephalic, atraumatic. No pharyngeal erythema. No thyromegaly. He has OG tube with around 100 mL of the drain. CARDIOVASCULAR: S1 and S2 present. No murmurs, rubs, or gallops. PULMONARY: Chest is clear to auscultation, no wheezing or crackles. ABDOMEN: Soft, nontender, nondistended, normoactive bowel sounds. No palpable organomegaly. MUSCULOSKELETAL: No joint swelling or deformity. EXTREMITIES: No cyanosis, clubbing, or pedal edema. NEUROLOGICAL: Patient is unresponsive, difficult to assess motor and sensory system. no more myoclonic jerks SKIN: No rashes. - Labs CBC & Chem 7: 04/06/19 05:57 04/06/19 05:57 Labs: Abnormal Lab Results - Last 24 Hours (Table) 04/05/19 04/05/19 04/05/19 Range/Units 16:28 16:50 19:29 WBC (3.8-10.6) k/uL RDW (11.5-15.5) % Plt Count (150-450) k/uL Neutrophils # (Manual) (1.3-7.7) k/uL Nucleated RBCs (0-0) /100 WBC PT (9.0-12.0) sec INR (<1.2) APTT (22.0-30.0) sec ABG pH (7.35-7.45) ABG pO2 (83-108) mmHg ABG Total CO2 (19-24) mmol/L ABG O2 Saturation (94-97) % Potassium 5.8 H (3.5-5.1) mmol/L Chloride 94 L (98-107) mmol/L Carbon Dioxide 21 L (22-30) mmol/L BUN 44 H (9-20) mg/dL Creatinine 6.01 H (0.66-1.25) mg/dL POC Glucose (mg/dL) 67 L 134 H (75-99) mg/dL Calcium 6.0 L* (8.4-10.2) mg/dL Phosphorus (2.5-4.5) mg/dL Magnesium (1.6-2.3) mg/dL Total Bilirubin (0.2-1.3) mg/dL AST (17-59) U/L ALT (21-72) U/L Alkaline Phosphatase (38-126) U/L Total Protein (6.3-8.2) g/dL Albumin (3.5-5.0) g/dL 04/05/19 04/06/19 04/06/19 Range/Units 23:46 01:41 03:53 WBC (3.8-10.6) k/uL RDW (11.5-15.5) % Plt Count (150-450) k/uL Neutrophils # (Manual) (1.3-7.7) k/uL Nucleated RBCs (0-0) /100 WBC PT (9.0-12.0) sec INR (<1.2) APTT (22.0-30.0) sec ABG pH (7.35-7.45) ABG pO2 (83-108) mmHg ABG Total CO2 (19-24) mmol/L ABG O2 Saturation (94-97) % Potassium (3.5-5.1) mmol/L Chloride 93 L (98-107) mmol/L Carbon Dioxide 21 L (22-30) mmol/L BUN 50 H (9-20) mg/dL Creatinine (0.66-1.25) mg/dL POC Glucose (mg/dL) 121 H 64 L (75-99) mg/dL Calcium 6.5 L (8.4-10.2) mg/dL Phosphorus (2.5-4.5) mg/dL Magnesium (1.6-2.3) mg/dL Total Bilirubin (0.2-1.3) mg/dL AST (17-59) U/L ALT (21-72) U/L Alkaline Phosphatase (38-126) U/L Total Protein (6.3-8.2) g/dL Albumin (3.5-5.0) g/dL 04/06/19 04/06/19 04/06/19 Range/Units 04:45 05:57 05:57 WBC 21.2 H (3.8-10.6) k/uL RDW 15.6 H (11.5-15.5) % Plt Count 79 L (150-450) k/uL Neutrophils # (Manual) 19.50 H (1.3-7.7) k/uL Nucleated RBCs 1 H (0-0) /100 WBC PT (9.0-12.0) sec INR (<1.2) APTT (22.0-30.0) sec ABG pH (7.35-7.45) ABG pO2 (83-108) mmHg ABG Total CO2 (19-24) mmol/L ABG O2 Saturation (94-97) % Potassium 5.6 H 5.2 H (3.5-5.1) mmol/L Chloride 88 L (98-107) mmol/L Carbon Dioxide (22-30) mmol/L BUN 52 H (9-20) mg/dL Creatinine 6.59 H (0.66-1.25) mg/dL POC Glucose (mg/dL) (75-99) mg/dL Calcium 5.6 L* (8.4-10.2) mg/dL Phosphorus 8.7 H (2.5-4.5) mg/dL Magnesium 2.9 H (1.6-2.3) mg/dL Total Bilirubin 10.9 H (0.2-1.3) mg/dL AST 61109 H (17-59) U/L ALT >75488 H (21-72) U/L Alkaline Phosphatase 170 H (38-126) U/L Total Protein 4.4 L (6.3-8.2) g/dL Albumin 2.6 L (3.5-5.0) g/dL 04/06/19 04/06/19 04/06/19 Range/Units 05:57 07:37 12:16 WBC (3.8-10.6) k/uL RDW (11.5-15.5) % Plt Count (150-450) k/uL Neutrophils # (Manual) (1.3-7.7) k/uL Nucleated RBCs (0-0) /100 WBC PT 33.0 H (9.0-12.0) sec INR 3.4 H (<1.2) APTT 41.9 H (22.0-30.0) sec ABG pH 7.47 H (7.35-7.45) ABG pO2 75 L (83-108) mmHg ABG Total CO2 26 H (19-24) mmol/L ABG O2 Saturation 93.9 L (94-97) % Potassium (3.5-5.1) mmol/L Chloride (98-107) mmol/L Carbon Dioxide (22-30) mmol/L BUN (9-20) mg/dL Creatinine (0.66-1.25) mg/dL POC Glucose (mg/dL) 36 L (75-99) mg/dL Calcium (8.4-10.2) mg/dL Phosphorus (2.5-4.5) mg/dL Magnesium (1.6-2.3) mg/dL Total Bilirubin (0.2-1.3) mg/dL AST (17-59) U/L ALT (21-72) U/L Alkaline Phosphatase (38-126) U/L Total Protein (6.3-8.2) g/dL Albumin (3.5-5.0) g/dL 04/06/19 04/06/19 Range/Units 12:39 14:04 WBC (3.8-10.6) k/uL RDW (11.5-15.5) % Plt Count (150-450) k/uL Neutrophils # (Manual) (1.3-7.7) k/uL Nucleated RBCs (0-0) /100 WBC PT (9.0-12.0) sec INR (<1.2) APTT (22.0-30.0) sec ABG pH (7.35-7.45) ABG pO2 (83-108) mmHg ABG Total CO2 (19-24) mmol/L ABG O2 Saturation (94-97) % Potassium (3.5-5.1) mmol/L Chloride (98-107) mmol/L Carbon Dioxide (22-30) mmol/L BUN (9-20) mg/dL Creatinine (0.66-1.25) mg/dL POC Glucose (mg/dL) 105 H 73 L (75-99) mg/dL Calcium (8.4-10.2) mg/dL Phosphorus (2.5-4.5) mg/dL Magnesium (1.6-2.3) mg/dL Total Bilirubin (0.2-1.3) mg/dL AST (17-59) U/L ALT (21-72) U/L Alkaline Phosphatase (38-126) U/L Total Protein (6.3-8.2) g/dL Albumin (3.5-5.0) g/dL Microbiology - Last 24 Hours (Table) 04/04/19 06:08 Gram Stain - Final Sputum Sputum Culture - Final 04/04/19 07:00 Blood Culture - Preliminary Blood No Growth after 48 hours Assessment and Plan Assessment: Status post cardiopulmonary unresponsiveness with prolonged cardiopulmonary arrest. Status post intubation. Acute respiratory failure secondary to above Anoxic brain injury Acidosis including Lactic acidosis and renal failure Acute renal failure, with hyperkalemia Markedly elevated liver enzymes and INR, liver failure myoclonic jerks of the heads Hypoglycemia, and arrival. Corrected Possible pneumonia with leukocytosis Plan: This is a 53 years old male who presents with periods of unresponsiveness, after prolonged cardiac arrest. Patient is admitted to the intensive care unit, pulmonary/critical care team consult. Neurology consult , other consultants including cardiology, nephrology following the case. Patient currently intubated and on mechanical ventilation. Continue with supportive care. Monitor glucose and change fluid to D5 normal saline, continue with monitoring sugar and labs.continue with Zosyn for possible pneumonia with leukocytosis. Labs and medication were reviewed.. Continue same treatment. Continue with symptomatic treatment. Monitor lytes and vitals. DVT and GI prophylaxis. Further recommendations of the clinical course of the patient DVT prophylaxis: No need for anticoagulation for high level of INR GI Prophylaxis: Protonix Prognosis is guarded and very poor Case was discussed with family CODE STATUS: No cold
[2019-04-06 16:42] LABS: Glucose,Whole Blood 140 mg/dL (75-99)
[2019-04-06 19:03] VITALS: BP 81/46; PULSE 124; RESP 26
--- NOTE | 2019-04-08 09:06 | CDI ---
Documentation Clarification Form Date: 04/08/19 From: Radha Kim Phone: If questions call Madelin Cruz @ [phone], Hours-8:30 am & 5 pm M- F Admit Date: 04/04/2019 6:07:00 AM Patient Name: Ghassan Balderas Visit Number: [id number] Discharge Date: 04/06/2019 7:20:00 PM ATTENTION: The Clinical Documentation Specialists (CDI) and [facility] Coding Staff appreciate your assistance in clarifying documentation. Please respond to the clarification below the line at the bottom and electronically sign. The CDI & [facility] Coding staff will review the response and follow-up if needed. Please note: Queries are made part of the Legal Health Record. If you have any questions, please contact the author of this message via ITS. Dr. Fox Sheet The patient following probable drug overdose with cardiac arrest, anoxic encephalopathy, ATN, shock liver and acute hypoxic respiratory failure. History/Risk Factors: self-harm In your professional opinion, please clarify the cause of ? Other, please specify Unable to determine anoxic brain injury, multi-organ failure secondary to prolonged cardiac arrest MTDD
== END 2019-04-06 19:20 | disposition expired | DRG 917 ==
LOC: EC 04:42 → 2SICU 06:07
PROVIDERS: ADMIT Internal Medicine; ATTEND Internal Medicine
PROC: 5A1945Z Respiratory Ventilation, 24-96 Consecutive Hours (ICD-10-PCS; principal; 2019-04-04)
PROC: 04HY32Z Insertion of Monitoring Device into Lower Artery, Percutaneous Approach (ICD-10-PCS; 2019-04-04)
PROC: 4A133B1 Monitoring of Arterial Pressure, Peripheral, Percutaneous Approach (ICD-10-PCS; 2019-04-04)
PROC: 4A133J1 Monitoring of Arterial Pulse, Peripheral, Percutaneous Approach (ICD-10-PCS; 2019-04-04)
PROC: 03HY32Z Insertion of Monitoring Device into Upper Artery, Percutaneous Approach (ICD-10-PCS; 2019-04-04)
PROC: 0D9670Z Drainage of Stomach with Drainage Device, Via Natural or Artificial Opening (ICD-10-PCS; 2019-04-04)
PROC: 06HM33Z Insertion of Infusion Device into Right Femoral Vein, Percutaneous Approach (ICD-10-PCS; 2019-04-04)
DX: T50.901A Poisoning by unspecified drugs, medicaments and biological substances, accidental (unintentional), initial encounter (principal); N17.0 Acute kidney failure with tubular necrosis; K72.00 Acute and subacute hepatic failure without coma; J96.01 Acute respiratory failure with hypoxia; R40.2112 Coma scale, eyes open, never, at arrival to emergency department; R40.2312 Coma scale, best motor response, none, at arrival to emergency department; R40.2212 Coma scale, best verbal response, none, at arrival to emergency department; J18.9 Pneumonia, unspecified organism; E87.2 Acidosis; G93.1 Anoxic brain damage, not elsewhere classified; I46.8 Cardiac arrest due to other underlying condition; R57.0 Cardiogenic shock; Z66 Do not resuscitate; Z51.5 Encounter for palliative care; G25.3 Myoclonus; E87.5 Hyperkalemia; E83.51 Hypocalcemia; D72.829 Elevated white blood cell count, unspecified; E16.2 Hypoglycemia, unspecified; I45.10 Unspecified right bundle-branch block; F32.9 Major depressive disorder, single episode, unspecified; K46.9 Unspecified abdominal hernia without obstruction or gangrene; F11.10 Opioid abuse, uncomplicated; F17.210 Nicotine dependence, cigarettes, uncomplicated; Z79.899 Other long term (current) drug therapy; Z91.5 Personal history of self-harm; Z81.2 Family history of tobacco abuse and dependence; Z82.5 Family history of asthma and other chronic lower respiratory diseases
CPT/HCPCS: 36415; 36556; 36600; 70450; 71045; 80048; 80053; 80306; 80320; 80329; 82150; 82550; 82805; 83520; 83605; 83690; 83735; 84100; 84132; 84484; 85025; 85610; 85730; 87040; 87070; 87205; 93005; 93306; 94002; 94003; 95816; 96360; 96361; 96365; 96366; 96375; 99291